=== PATIENT | female | born 1935 | race Caucasian/White ===

== ENCOUNTER 2018-10-11 14:50 | Inpatient (IN) | payer MEDICARE, BC ==
[2018-10-11] MEDS ORDERED: Acetaminophen/Codeine 30-300mg Tablet PO PRN (17:38)
[2018-10-11] MEDS ORDERED: Dextrose 50% Abboject 50 ML SYRINGE SLOW IVP PRN (17:42)
[2018-10-11] MEDS ORDERED: Dextrose 5% in Water 1,000 ML IV PRN (17:42)
[2018-10-11] MEDS: Cephalexin 250 MG CAP PO SCH (21:23)
[2018-10-11] MEDS: Atorvastatin Calcium 40 MG TAB PO SCH (21:23)
[2018-10-11] MEDS: Carvedilol 3.125 MG TAB PO SCH (21:23)
[2018-10-11] MEDS: HumaLOG 300 UNITS/3 ML VIAL SC PRN (21:26)
[2018-10-12 05:55] LABS: #Basophils 0.1 thou/uL (0.0-0.2); #Eosinphils 0.1 thou/uL (0.0-0.7); #Lymphocytes 1.4 thou/uL (1.20-3.40); #Monocytes 0.3 thou/uL (0.11-0.59); #Neutrophils 3.7 thou/uL (1.40-6.50); %Basophils 1.4 % (0.0-1.0); %Eosinophils 1.9 % (0.0-10.0); %Lymphocytes 25.1 % (21.0-51.0); %Monocytes 5.7 % (0.0-10.0); Hemoglobin 9.8 g/dL (12.0-16.0); Mean Corpuscular Hemoglobin 30.7 pg (27.0-31.0); Mean Corpuscular Volume 99.2 fL (78.0-98.0); Mean Platelet Volume 7.1 fL (7.4-10.4); Platelet Count 118 thou/uL (130-400); RBC Distribution Width 17.2 % (11.5-14.5); Red Blood Cell (RBC) Count 3.17 mill/uL (4.20-5.40); White Blood Cell (WBC) Count 5.7 thou/uL (4.8-10.8)
[2018-10-12 06:05] LABS: AST (SGOT) 27 U/L (5-34); Alkaline Phosphatase 160 U/L (40-150); Anion Gap 14 mmol/L (10-20); BUN (Urea Nitrogen) 34 mg/dL (9.8-20.1); Bilirubin, Total 0.6 mg/dL (0.2-1.2); Calc. Creatinine Clearance 34 mL/min (70-130); Calcium 8.6 mg/dL (7.8-10.44); Carbon Dioxide 28 mmol/L (23-31); Chloride 96 mmol/L (98-107); Estimated GFR-MDRD 36; Globulin 2.2 g/dL (2.4-3.5); Glucose 98 mg/dL (83-110); Potassium 3.8 mmol/L (3.5-5.1); Protein, Total 5.2 g/dL (6.0-8.3); Sodium 134 mmol/L (136-145)
[2018-10-12 07:43] LABS: ALT (SGPT) 13 U/L (8-55)
[2018-10-12] MEDS: Fish Oil 1,000 MG CAP PO SCH (09:08)
[2018-10-12] MEDS: Carvedilol 3.125 MG TAB PO SCH ×2 (09:08→21:01)
[2018-10-12] MEDS: Cephalexin 250 MG CAP PO SCH ×3 (09:08→21:01)
[2018-10-12] MEDS: Allopurinol 100 MG TAB PO SCH (09:08)
[2018-10-12] MEDS: Polyethylene Glycol 3350 17 GM Packet PO SCH (09:08)
[2018-10-12] MEDS: Enoxaparin Sodium 30 MG/0.3 ML SYRINGE SC SCH (09:09)
[2018-10-12] MEDS: Aspirin 81 mg Enteric Coated Tablet PO SCH (09:09)
[2018-10-12] MEDS: Furosemide 20 MG TAB PO SCH ×2 (09:09→14:47)
[2018-10-12] MEDS: glipiZIDE 5 MG TAB PO SCH ×2 (09:09→16:22)
--- NOTE | 2018-10-12 10:58 | PRG ---
DATE OF SERVICE: 10/12/2018 SUBJECTIVE: The patient feels well. No complaints. Rested well through the night. No dyspnea, chest pain or shortness of breath. OBJECTIVE: LUNGS: Clear. CARDIAC: Regular rhythm. She has a healing pacemaker site in the left upper chest. Cardiac examination shows regular rhythm with a healing biventricular pacemaker. ABDOMEN: Soft and nontender. SKIN/EXTREMITIES: Healing cellulitis of the right leg. LABORATORY DATA: White count 5700, hematocrit 31, hemoglobin 9.8. Sodium 134, potassium 3.8, chloride 96, bicarb 28, BUN 34, creatinine 1.38, albumin 3.0. ASSESSMENT: 1. Severe systolic heart failure, acute on chronic secondary to ischemic cardiomyopathy from recent myocardial infarction in June of 2018, status post angioplasty to the left anterior descending with subsequent ejection fraction of 10-15% on this admission and peripheral edema requiring IV diuresis and dopamine, which is now greatly improved. 2. Cellulitis of the right leg, improving greatly, on oral antibiotics. 3. Type 2 diabetes, controlled to goal. Type 2 diabetes with Accu-Cheks and glipizide. We will monitor and titrate and control. 4. History of atrial fibrillation with Watchman procedure. No need for anticoagulation, only rate control. PLAN: 1. Continue PT/OT. 2. Continue to monitor for any signs of arrhythmia. 3. Continue Accu-Cheks to monitor and titrate and control diabetes. 4. Continue stress ulcer and DVT prophylaxis. Job ID: [id number]
[2018-10-12] MEDS: HumaLOG 300 UNITS/3 ML VIAL SC PRN ×2 (12:06→16:22)
--- NOTE | 2018-10-12 13:03 | HP ---
Patient of Dr. Kim Rivero. HISTORY OF PRESENT ILLNESS: The patient is a very pleasant 82-year-old white female with a long history of atrial fibrillation, coronary artery disease, status post recent ST elevation NV and stent placement to the LAD in June of 2018 with subsequent severe ischemic cardiomyopathy with an ejection fraction of 10% to 15% and with left bundle-branch block and severe global hypokinesis, who has been followed by Dr. Eric Mendez and has been wearing a LifeVest since her myocardial infarction in preparation for possible biventricular AICD placement. She, however, presented to the [facility] Room on October 05 with complaints of increasing leg edema, weakness, and has developed some erythema of the right lower leg and was diagnosed with cellulitis. On admission, she had bilateral peripheral edema with erythema on the right calf. Cardiac examination showed a regular rhythm. There were few crackles in the bases. White count was elevated to 14,000. BUN was 41, creatinine was 2.19. She is felt to have acute on chronic systolic failure exacerbation, possibly from cellulitis of her right leg, severe deconditioning, and acute on chronic renal failure with creatinine increased to 2.1 from a previous creatinine of 1.4 as well as poor control of her type 2 diabetes. As mentioned above, she also has a history of atrial fibrillation with rate controlled, but no anticoagulation as she is status post a Watchman procedure after the recent myocardial infarction and stent. She has also had a history of GI bleeding with black tarry stools and a history of peptic ulcer disease, which was not treated except with proton pump inhibitors. She was started on low-dose dopamine and diuretics IV and slowly, but surely diuresed, decreasing edema. She was also started on clindamycin for her cellulitis and had markedly decreased erythema. She was seen by Dr. Rangel, nursing consultant, who stated that after she was optimized with fluid status, she would have a biventricular pacemaker placed. This was done on October 09 with no complications. She was weaned off her dopamine. The patient states she immediately began to feel better with increasing strength, no tightness in her chest, and has been walking in the halls with family with no shortness of breath. She is admitted here to [facility] to continue her PT and OT as she does live alone at home and is unable to maintain ADLs safely at this time. PAST MEDICAL HISTORY: Remarkable as mentioned above for chronic atrial fibrillation; coronary artery disease; status post myocardial infarction in 2010 and again in June of 2018; coronary angioplasty to the LAD in June of 2018; subsequent ischemic cardiomyopathy with an EF of 10% to 15% on this admission, but 20% to 25% after the NV; type 2 diabetes with adequate control until this admission; hyperlipidemia; hypertension; hypothyroidism; osteoarthritis; GI bleeding; gout. PAST SURGICAL HISTORY: Positive for esophagogastroduodenoscopy showing peptic ulcer disease, Watchman device placement, left groin embolectomy, angioplasty with stents to the LAD. SOCIAL HISTORY: She lives alone with her family living next door. She is a nonsmoker, nondrinker. She is a full code. FAMILY HISTORY: Positive for coronary artery disease in mother and CVA in father. ALLERGIES: SHE HAS NO ALLERGIES. MEDICATIONS: On admission to the skilled unit included allopurinol 300 daily, aspirin 81 daily, atorvastatin 40 daily, carvedilol 3.125 daily, Keflex 500 three times daily until October 17, Lovenox 30 mg subcu daily, furosemide 40 daily, glipizide 5 twice daily, MiraLAX 17 g daily. Apparently, was on a PPI at the other hospital, but has not been transferred here on that. REVIEW OF SYSTEMS: HEENT: She denies any headaches, dizziness, change in vision or hearing, hoarseness, or dysphagia. PULMONARY: She denies cough, sputum production, pneumonia, asthma, or tuberculosis. CARDIOVASCULAR: She denies chest pain, but does have chest tightness, greatly improved. She has noticed no palpitations. Markedly decreased edema. GASTROINTESTINAL: She has a history of GI bleed secondary to peptic ulcer disease and now is on prophylactic DVT with Lovenox and not on a PPI. GENITOURINARY: She denies dysuria, hematuria, or nocturia. MUSCULOSKELETAL: She denies stiffness or swelling in her joints or extremities, and resolving tenderness in her right groin. NEUROLOGIC: She denies localized numbness or weakness in arms or extremities. PHYSICAL EXAMINATION: GENERAL: The patient is an alert, oriented, lucid, pleasant white female, in no acute distress. Oriented x3 and cooperative. VITAL SIGNS: Show her to have blood pressure of 119/73, temperature is 97, pulse 86, respirations 18, O2 sats 100% on room air. HEENT: Pupils are equal, round, and reactive to light and accommodation. Sclerae are anicteric. Conjunctivae are pale. Oral mucous membranes are well hydrated. NECK: Supple. There are no nodes or masses. JVP is not elevated. LUNGS: Clear. CARDIAC: Shows regular rhythm with an S4. No other gallops or murmurs. Biventricular pacemaker site is healing well. ABDOMEN: Soft and nontender with no masses or organomegaly. SKIN/EXTREMITIES: Display no edema, clubbing, or cyanosis. There is a healing area of erythema and cellulitis on the right medial calf. NEUROLOGIC: Intact. LABORATORY DATA: Previously showed a white count of 7100, hematocrit 30, and hemoglobin 10. Sodium 131, potassium 3.8, chloride 94, bicarb 28, BUN 34, creatinine 1.58, glucose 160. ASSESSMENT: 1. Severe ischemic cardiomyopathy, status post ST myocardial infarction and stent to the left anterior descending in June of 2018 with subsequent ejection fraction down to 10% to 15% on this admission, now improved, status post biventricular defibrillator placement and IV diuresis. 2. History of cellulitis of the right leg, improving, on oral Keflex for several more days until October 17. 3. History of peptic ulcer disease and GI bleed with stable hemoglobin, on prophylactic heparin, but we will start on PPI. 4. History of atrial fibrillation with rate controlled, but no need for anticoagulation as the patient has had a Watchman procedure. 5. Chronic kidney disease, stage 3, stable. 6. Acute on chronic kidney injury, resolved. 7. Diabetes type 2, controlled to goal. 8. History of nonsustained ventricular tachycardia, no recurrence. 9. Hyponatremia. PLAN: 1. Consult PT/OT. 2. Continue DVT prophylaxis and start on stress ulcer prophylaxis and monitor hemoglobin closely. 3. Continue Accu-Cheks to monitor and titrate and control diabetes. 4. Continue to monitor fluid status. Job ID: [id number]
[2018-10-12] MEDS: Atorvastatin Calcium 40 MG TAB PO SCH (21:01)
[2018-10-13] MEDS: HumaLOG 300 UNITS/3 ML VIAL SC PRN ×3 (05:42→17:28)
[2018-10-13] MEDS: Polyethylene Glycol 3350 17 GM Packet PO SCH (08:38)
[2018-10-13] MEDS: Enoxaparin Sodium 30 MG/0.3 ML SYRINGE SC SCH (08:39)
[2018-10-13] MEDS: Cephalexin 250 MG CAP PO SCH ×3 (08:40→20:52)
[2018-10-13] MEDS: Allopurinol 100 MG TAB PO SCH (08:40)
[2018-10-13] MEDS: glipiZIDE 5 MG TAB PO SCH ×2 (08:40→17:07)
[2018-10-13] MEDS: Carvedilol 3.125 MG TAB PO SCH ×2 (08:40→20:52)
[2018-10-13] MEDS: Aspirin 81 mg Enteric Coated Tablet PO SCH (08:41)
[2018-10-13] MEDS: Fish Oil 1,000 MG CAP PO SCH (08:41)
[2018-10-13] MEDS: Furosemide 20 MG TAB PO SCH ×2 (08:41→15:09)
--- NOTE | 2018-10-13 17:49 | PRG ---
DATE OF SERVICE: 10/13/2018 SUBJECTIVE: The patient is sitting up in the [place], visiting with a friend. States she feels much better with increasing strength. No chest pain or shortness of breath. She, however, has not had physical therapy as of yet. She is not having any dark stools. She is not having any significant edema. Had resolving cellulitis. Her biventricular pacemaker in place and she states that it has made an immediate difference in her energy. OBJECTIVE: VITAL SIGNS: Show blood pressure is 100/69, temperature 97, pulse 84, respirations 18, O2 saturations 97% on room air. Accu-Cheks range 128 to 253. LUNGS: Clear. CARDIAC: Showed regular rhythm. Pacemaker site is healing well. SKIN/EXTREMITIES: Show 1+ edema. ASSESSMENT: 1. Resolving decompensation of systolic heart failure, status post biventricular pacemaker and defibrillator. 2. Resolving cellulitis of right leg. 3. Type 2 diabetes with fair control. 4. Atrial fibrillation with Watchman procedure. PLAN: Start PT/OT tomorrow. Continue to monitor for signs of arrhythmia. Continue Accu-Cheks to monitor and titrate and control diabetes. Continue stress ulcer and DVT prophylaxis. Job ID: [id number]
[2018-10-13] MEDS: Atorvastatin Calcium 40 MG TAB PO SCH (20:52)
[2018-10-14] MEDS: HumaLOG 300 UNITS/3 ML VIAL SC PRN ×3 (05:37→16:55)
[2018-10-14] MEDS: Cephalexin 250 MG CAP PO SCH ×3 (09:16→20:09)
[2018-10-14] MEDS: Aspirin 81 mg Enteric Coated Tablet PO SCH (09:16)
[2018-10-14] MEDS: Furosemide 20 MG TAB PO SCH ×2 (09:17→15:11)
[2018-10-14] MEDS: Carvedilol 3.125 MG TAB PO SCH ×2 (09:17→20:09)
[2018-10-14] MEDS: glipiZIDE 5 MG TAB PO SCH ×2 (09:17→16:55)
[2018-10-14] MEDS: Allopurinol 100 MG TAB PO SCH (09:17)
[2018-10-14] MEDS: Fish Oil 1,000 MG CAP PO SCH (09:17)
[2018-10-14] MEDS: Enoxaparin Sodium 30 MG/0.3 ML SYRINGE SC SCH (09:17)
[2018-10-14] MEDS: Polyethylene Glycol 3350 17 GM Packet PO SCH (09:18)
--- NOTE | 2018-10-14 14:04 | PRG ---
DATE OF SERVICE: 10/14/2018 SUBJECTIVE: Ms. Amor is doing well. Denies any complaints. Resting comfortably, tolerating her therapy. She denies any pain. No family at bedside. OBJECTIVE: VITAL SIGNS: She is afebrile. Heart rate 80, respirations 18, oxygen saturation 98% on room air, blood pressure 133/74. CARDIOVASCULAR SYSTEM: S1 and S2 plus. RESPIRATORY SYSTEM: Normal vesicular breath sounds heard in all lung garcia. ABDOMEN: Soft and nontender. Bowel sounds heard in all quadrants. EXTREMITIES: Without cyanosis or clubbing. Right lobo wound with dressing. No edema. Peripheral pulses are palpable. CENTRAL NERVOUS SYSTEM: Awake and responsive. Generalized weakness. LABORATORY DATA: Laboratory values done on the shows a white count of 5.7, H and H are 9.8 and 31.5. Blood sugars are 201, 159, 257, 186, and 249. Sodium 134, potassium 3.8, BUN and creatinine are 34 and 1.38. IMPRESSION: 1. Severe cardiomyopathy with ejection fraction of 10% to 15%, requiring automatic implantable cardioverter-defibrillator placement. 2. Coronary artery disease. 3. Atrial fibrillation. 4. Diabetes mellitus, type 2. 5. Hypertension. 6. Dyslipidemia. 7. Hypothyroidism. 8. Osteoarthritis. 9. History of gout. PLAN: 1. Continue 1800-calorie heart healthy ADA diet. 2. Continue current medications. 3. Accu-Cheks with sliding scale coverage. 4. DVT prophylaxis, she is on Lovenox. 5. Decubitus precautions. 6. Stress ulcer prophylaxis. 7. Wound care. 8. Physical therapy. 9. Routine laboratory values. 10. Discussed with the patient in detail. All questions answered. Job ID: [id number]
[2018-10-14] MEDS: Atorvastatin Calcium 20 MG TAB PO SCH (20:09)
[2018-10-15] MEDS: HumaLOG 300 UNITS/3 ML VIAL SC PRN ×2 (06:05→12:56)
[2018-10-15] MEDS: glipiZIDE 5 MG TAB PO SCH ×2 (07:16→15:55)
[2018-10-15] MEDS: Allopurinol 100 MG TAB PO SCH (08:52)
[2018-10-15] MEDS: Enoxaparin Sodium 30 MG/0.3 ML SYRINGE SC SCH (08:52)
[2018-10-15] MEDS: Furosemide 20 MG TAB PO SCH ×2 (08:52→12:57)
[2018-10-15] MEDS: Cephalexin 250 MG CAP PO SCH ×3 (08:52→20:46)
[2018-10-15] MEDS: Aspirin 81 mg Enteric Coated Tablet PO SCH (08:52)
[2018-10-15] MEDS: Carvedilol 3.125 MG TAB PO SCH ×2 (08:52→20:46)
[2018-10-15] MEDS: Fish Oil 1,000 MG CAP PO SCH (08:52)
[2018-10-15] MEDS: Polyethylene Glycol 3350 17 GM Packet PO SCH (08:53)
--- NOTE | 2018-10-15 14:07 | PRG ---
DATE OF SERVICE: 10/15/2018 SUBJECTIVE: Ms. Amor is doing great. Denies any complaints. She is sitting in the hallway with her daughter. She apparently did well with therapy this morning. OBJECTIVE: VITAL SIGNS: She is afebrile, heart rate 98, respirations 22, oxygen saturation 99% on room air, and blood pressure 118/66. CARDIOVASCULAR SYSTEM: S1 and S2 plus. RESPIRATORY SYSTEM: Normal vesicular breath sounds. ABDOMEN: Soft, nontender. Bowel sounds heard in all quadrants. EXTREMITIES: Without cyanosis or clubbing. Right leg trace edema. CENTRAL NERVOUS SYSTEM: Awake and responsive. Generalized weakness. IMPRESSION: 1. Coronary artery disease. 2. Chronic systolic congestive heart failure. 3. Atrial fibrillation. 4. Hypertension. 5. Dyslipidemia. 6. Hypothyroidism. 7. Osteoarthritis. 8. Recent automatic implantable cardioverter-defibrillator placement. PLAN: 1. Continue current medications. 2. Heart healthy diet. 3. Incision care. 4. DVT prophylaxis. 5. Physical therapy. 6. Routine laboratory values. 7. Discussed with the patient and nursing in detail. All questions answered. Job ID: [id number]
[2018-10-15] MEDS: Atorvastatin Calcium 20 MG TAB PO SCH (20:46)
[2018-10-16] MEDS: HumaLOG 300 UNITS/3 ML VIAL SC PRN ×3 (05:20→17:25)
[2018-10-16] MEDS: Aspirin 81 mg Enteric Coated Tablet PO SCH (08:14)
[2018-10-16] MEDS: glipiZIDE 5 MG TAB PO SCH ×2 (08:14→17:25)
[2018-10-16] MEDS: Allopurinol 100 MG TAB PO SCH (08:14)
[2018-10-16] MEDS: Carvedilol 3.125 MG TAB PO SCH ×2 (08:15→20:12)
[2018-10-16] MEDS: Furosemide 20 MG TAB PO SCH ×2 (08:15→14:57)
[2018-10-16] MEDS: Fish Oil 1,000 MG CAP PO SCH (08:15)
[2018-10-16] MEDS: Enoxaparin Sodium 30 MG/0.3 ML SYRINGE SC SCH (08:15)
[2018-10-16] MEDS: Cephalexin 250 MG CAP PO SCH ×3 (08:15→20:13)
[2018-10-16] MEDS: Polyethylene Glycol 3350 17 GM Packet PO SCH (08:16)
--- NOTE | 2018-10-16 12:53 | PRG ---
DATE OF SERVICE: 10/16/2018 SUBJECTIVE: Ms. Amor has been moved to [facility]. She had a great lunch. She denies any concerns or questions. She feels like she is getting stronger. No family at bedside. Discussed with nursing. OBJECTIVE: VITAL SIGNS: She is afebrile. Heart rate 94, respirations 18, oxygen saturation 98% on room air, and blood pressure is 111/53. CARDIOVASCULAR SYSTEM: S1 and S2 plus. RESPIRATORY SYSTEM: Normal vesicular breath sounds. ABDOMEN: Soft and nontender. Bowel sounds heard in all quadrants. EXTREMITIES: Without cyanosis or clubbing. CHEST: AICD site is healthy. CENTRAL NERVOUS SYSTEM: Awake and responsive. Generalized weakness. LABORATORY DATA: Blood sugars are 149, 267, 153, and 164. IMPRESSION: 1. Significant cardiomyopathy requiring AICD placement. 2. Diabetes mellitus type 2. 3. Dyslipidemia. 4. Resolving cellulitis. 5. Coronary artery disease. 6. Hypertension. 7. Hypothyroidism. PLAN: 1. Continue current medications. 2. Keflex for total of 10 days. 3. Incision care. 4. DVT prophylaxis. She is on Lovenox. 5. Decubitus precautions. 6. Stress ulcer prophylaxis. 7. Physical Therapy. 8. Routine laboratory values. Job ID: [id number]
[2018-10-16] MEDS ORDERED: Cephalexin 500 MG CAP PO SCH (15:00)
[2018-10-16] MEDS: Atorvastatin Calcium 20 MG TAB PO SCH (20:12)
[2018-10-17 05:40] LABS: #Basophils 0.1 thou/uL (0.0-0.2); #Eosinphils 0.1 thou/uL (0.0-0.7); #Lymphocytes 1.9 thou/uL (1.20-3.40); #Monocytes 0.5 thou/uL (0.11-0.59); %Basophils 0.9 % (0.0-1.0); %Eosinophils 1.1 % (0.0-10.0); %Lymphocytes 25.5 % (21.0-51.0); %Monocytes 6.5 % (0.0-10.0); %Neutrophils 66.1 % (42.0-75.0); Hemoglobin 9.4 g/dL (12.0-16.0); Mean Corpuscular HGB CONC 30.8 g/dL (32.0-36.0); Mean Corpuscular Hemoglobin 30.6 pg (27.0-31.0); Mean Corpuscular Volume 99.3 fL (78.0-98.0); Mean Platelet Volume 7.5 fL (7.4-10.4); Platelet Count 159 thou/uL (130-400); Red Blood Cell (RBC) Count 3.06 mill/uL (4.20-5.40); White Blood Cell (WBC) Count 7.6 thou/uL (4.8-10.8)
[2018-10-17 05:58] LABS: Anion Gap 15 mmol/L (10-20); BUN (Urea Nitrogen) 41 mg/dL (9.8-20.1); Calc. Creatinine Clearance 32 mL/min (70-130); Calcium 8.9 mg/dL (7.8-10.44); Carbon Dioxide 27 mmol/L (23-31); Chloride 97 mmol/L (98-107); Estimated GFR-MDRD 34; Glucose 153 mg/dL (83-110); Potassium 3.5 mmol/L (3.5-5.1); Sodium 135 mmol/L (136-145)
[2018-10-17] MEDS: HumaLOG 300 UNITS/3 ML VIAL SC PRN ×2 (06:51→11:43)
[2018-10-17] MEDS: glipiZIDE 5 MG TAB PO SCH ×2 (08:11→16:11)
[2018-10-17] MEDS: Aspirin 81 mg Enteric Coated Tablet PO SCH (08:11)
[2018-10-17] MEDS: Allopurinol 100 MG TAB PO SCH (08:11)
[2018-10-17] MEDS: Fish Oil 1,000 MG CAP PO SCH (08:12)
[2018-10-17] MEDS: Furosemide 20 MG TAB PO SCH ×2 (08:12→14:36)
[2018-10-17] MEDS: Cephalexin 250 MG CAP PO SCH ×3 (08:12→20:32)
[2018-10-17] MEDS: Enoxaparin Sodium 30 MG/0.3 ML SYRINGE SC SCH (08:12)
[2018-10-17] MEDS: Carvedilol 3.125 MG TAB PO SCH ×2 (08:12→20:32)
[2018-10-17] MEDS: Polyethylene Glycol 3350 17 GM Packet PO SCH (08:13)
--- NOTE | 2018-10-17 13:18 | PRG ---
DATE OF SERVICE: 10/17/2018 SUBJECTIVE: Ms. Amor is up in her chair and denies any complaints. She is happy with her progress. She states that her goal is to get out of here in 2 weeks and get independent by then. No family at bedside. OBJECTIVE: VITAL SIGNS: She is afebrile, heart rate 76, respirations 18, oxygen saturation 95% on room air, blood pressure 102/64. CARDIOVASCULAR SYSTEM: S1 and S2 plus. RESPIRATORY SYSTEM: Normal vesicular breath sounds. ABDOMEN: Soft and nontender. Bowel sounds heard in all quadrants. EXTREMITIES: Without cyanosis or clubbing. CENTRAL NERVOUS SYSTEM: Awake and responsive. Generalized weakness. LABORATORY DATA: White count is 7.6, H and H are 9.4 and 30.4. Sodium 135, potassium 3.5, BUN and creatinine of 41 and 1.47. Blood sugars are 164, 173, 157, 153, and 250. IMPRESSION: 1. Ischemic cardiomyopathy, requiring AICD placement. 2. Diabetes mellitus, type 2. 3. Dyslipidemia. 4. Resolving cellulitis. 5. Coronary artery disease. 6. Hypertension. 7. Hypothyroidism. 8. Renal insufficiency. PLAN: 1. Continue current medications. 2. Nutritional support with 1800-calorie heart healthy ADA diet. 3. Accu-Cheks with sliding scale coverage. 4. Monitor heart rate and rhythm. 5. Monitor blood pressure and adjust medications as needed. 6. DVT prophylaxis, she is on Lovenox. 7. Physical therapy. 8. Dr. Azul covering this weekend. Job ID: [id number]
[2018-10-17] MEDS: Atorvastatin Calcium 20 MG TAB PO SCH (20:32)
[2018-10-18] MEDS: HumaLOG 300 UNITS/3 ML VIAL SC PRN ×4 (05:14→20:47)
[2018-10-18] MEDS: Polyethylene Glycol 3350 17 GM Packet PO SCH (08:05)
[2018-10-18] MEDS: Fish Oil 1,000 MG CAP PO SCH (08:06)
[2018-10-18] MEDS: Carvedilol 3.125 MG TAB PO SCH ×2 (08:06→20:24)
[2018-10-18] MEDS: Enoxaparin Sodium 30 MG/0.3 ML SYRINGE SC SCH (08:06)
[2018-10-18] MEDS: Furosemide 20 MG TAB PO SCH ×2 (08:06→14:13)
[2018-10-18] MEDS: glipiZIDE 5 MG TAB PO SCH ×2 (08:06→16:31)
[2018-10-18] MEDS: Allopurinol 100 MG TAB PO SCH (08:06)
[2018-10-18] MEDS: Aspirin 81 mg Enteric Coated Tablet PO SCH (08:06)
--- NOTE | 2018-10-18 13:30 | PRG ---
DATE OF SERVICE: 10/18/2018 Ms. Amor is a very pleasant 82-year-old white female followed by Dr. Eric Mendez, who had a long history of atrial fibrillation; coronary artery disease, status post STEMI and stent placement to [facility] back in June. She had a very severe ischemic cardiomyopathy with ejection fraction of 10% to 15%, left bundle-branch block, and severe global hypokinesis. She wore LifeVest and eventually had an AICD placed. Postop, she was transferred to inpatient rehab at [facility] for physical therapy and occupational therapy. Unfortunately, during that time, she also had a GI bleed and had to be started on low-dose dopamine, diuretics, etc. She was stabilized and now she is here for continued PT and OT. She does live alone and is unable to maintain her ADLs safely, but she is working towards that goal. SUBJECTIVE: The patient states she is doing well and feels like she is improving. She has no concerns or complaints today and wants to continue to get stronger, so she can go home and become independent. PHYSICAL EXAMINATION: VITAL SIGNS: Blood pressure this morning 125/63, pulse 87, respirations 16, O2 saturation 96% to 98% on room air, T-max 97.6. GENERAL: This is a well-developed, well-nourished, 82-year-old white female, in no apparent distress at this time. HEENT: Normocephalic, nontraumatic cranium. The pupils are equally round and reactive. Extraocular movements are intact. Nose and throat are slightly dry. NECK: Supple without masses, nodes, or bruits. CHEST: Clear to auscultation. No rales, no rhonchi, no wheezes are heard. HEART: Regular rate and rhythm without murmurs, gallops, or rubs. ABDOMEN: Soft, nontender without organomegaly. Normal bowel sounds are heard in all 4 quadrants. : Deferred. EXTREMITIES: No clubbing or cyanosis. The patient is oriented to person, place, and time. IMPRESSION: 1. Ischemic cardiomyopathy requiring AICD placement, which has been done. 2. Diabetes type 2. 3. Hyperlipidemia. 4. Cellulitis, which is resolved. 5. Coronary artery disease. 6. Hypertension. 7. Hypothyroidism. 8. Renal insufficiency. 9. Generalized weakness. PLAN: 1. The patient states she would like to be out within the next week. She is working hard towards working with therapy and getting as strong as she can. 2. Continue Accu-Cheks with a.c. and at bedtime. 3. Continue to monitor the patient's heart rate. 4. Monitor the patient's blood pressure and adjust medications as needed. 5. Stress ulcer prophylaxis. 6. Decubitus precautions. 7. DVT prophylaxis with Lovenox. 8. Continue physical therapy and occupational therapy. Job ID: [id number]
[2018-10-18] MEDS: Atorvastatin Calcium 20 MG TAB PO SCH (20:24)
[2018-10-19] MEDS: Enoxaparin Sodium 30 MG/0.3 ML SYRINGE SC SCH (08:03)
[2018-10-19] MEDS: Furosemide 20 MG TAB PO SCH ×2 (08:04→14:33)
[2018-10-19] MEDS: glipiZIDE 5 MG TAB PO SCH ×2 (08:04→16:36)
[2018-10-19] MEDS: Fish Oil 1,000 MG CAP PO SCH (08:04)
[2018-10-19] MEDS: Aspirin 81 mg Enteric Coated Tablet PO SCH (08:04)
[2018-10-19] MEDS: Carvedilol 3.125 MG TAB PO SCH ×2 (08:04→20:24)
[2018-10-19] MEDS: Allopurinol 100 MG TAB PO SCH (08:04)
[2018-10-19] MEDS: Polyethylene Glycol 3350 17 GM Packet PO SCH (08:06)
--- NOTE | 2018-10-19 08:31 | PRG ---
DATE OF SERVICE: 10/19/2018 The patient is a very pleasant 82-year-old white female followed by Dr. Mendez, with long history of atrial fibrillation, CAD status post STEMI, stent placement to the LAD back in June. She had severe ischemic cardiomyopathy with ejection fraction of 10% to 15%, left bundle branch block and severe global hypokinesis. She wore LifeVest and eventually had an AICD placed. Postop, she was very weak and therefore transferred to [facility] for PT and OT. Unfortunately, she has had a GI bleed and started on low-dose dopamine and diuretics. Eventually, she was stabilized and transferred back to [facility] for PT and OT. She lives alone, is unable to maintain her ADLs and so she was working toward that goal. SUBJECTIVE: The patient states she did well yesterday and has no complaints. She thinks she is slowly improving. OBJECTIVE: VITAL SIGNS: Reveal blood pressure 99/63, pulse 84, respirations 20, O2 saturation 99% to 98% on room air, T-max 97.8. GENERAL: This is a well-developed, well-nourished, pleasant white female, in no apparent distress at this time. HEENT: Reveals normocephalic and nontraumatic cranium. Pupils are equal, round, and reactive. Extraocular movements are intact. Nose and throat are slightly dry. NECK: Supple without masses, nodes, or bruits. CHEST: Clear to auscultation. No rales, rhonchi, or wheezes are heard. HEART: Reveals a regular rate and rhythm with S4. No murmurs, gallops, or rubs are noted. Pacemaker is in place. ABDOMEN: Soft, nontender without organomegaly. Normal bowel sounds are noted. No rebound or guarding is noted. : Exam is deferred. EXTREMITIES: Reveal no clubbing, cyanosis, or edema. NEUROLOGIC: The patient is oriented to person, place, and time. IMPRESSION: 1. Ischemic cardiomyopathy with automated implantable cardioverter defibrillator. 2. Diabetes, type 2. 3. Hyperlipidemia. 4. Coronary artery disease. 5. Hypertension. 6. Hypothyroidism. 7. Renal insufficiency. 8. Resolved cellulitis. 9. Generalized weakness. PLAN: 1. Continue to encourage the patient to work hard at physical therapy, so she can get out and go back home. 2. Continue Accu-Cheks before meals and at bedtime. 3. Monitor the patient's heart rate. 4. Continue to monitor the patient's blood pressure, adjust medications as needed. 5. Stress ulcer prophylaxis. 6. Decubitus precautions. 7. DVT prophylaxis with Lovenox. 8. Continue PT and OT. Job ID: [id number]
[2018-10-19] MEDS: HumaLOG 300 UNITS/3 ML VIAL SC PRN ×2 (12:14→16:36)
[2018-10-19] MEDS: Atorvastatin Calcium 20 MG TAB PO SCH (20:23)
[2018-10-20] MEDS: HumaLOG 300 UNITS/3 ML VIAL SC PRN ×3 (05:15→20:04)
[2018-10-20] MEDS ORDERED: Dextrose 50% Abboject 50 ML SYRINGE SLOW IVP PRN (06:16)
[2018-10-20] MEDS ORDERED: Dextrose 5% in Water 1,000 ML IV PRN (06:16)
[2018-10-20] MEDS: Carvedilol 3.125 MG TAB PO SCH ×2 (08:20→20:06)
[2018-10-20] MEDS: Allopurinol 100 MG TAB PO SCH (08:20)
[2018-10-20] MEDS: Aspirin 81 mg Enteric Coated Tablet PO SCH (08:20)
[2018-10-20] MEDS: Furosemide 20 MG TAB PO SCH ×2 (08:20→14:18)
[2018-10-20] MEDS: glipiZIDE 5 MG TAB PO SCH ×2 (08:20→16:40)
[2018-10-20] MEDS: Enoxaparin Sodium 30 MG/0.3 ML SYRINGE SC SCH (08:20)
[2018-10-20] MEDS: Fish Oil 1,000 MG CAP PO SCH (08:20)
[2018-10-20] MEDS: Polyethylene Glycol 3350 17 GM Packet PO SCH (08:21)
--- NOTE | 2018-10-20 10:14 | PRG ---
DATE OF SERVICE: 10/20/2018 Ms. Amor is a very pleasant 82-year-old white female. She is followed by Dr. Mendez for multiple cardiac problems including a long history of atrial fibrillation, CAD status post STEMI, stent placement to the LAD back in June. She had severe ischemic cardiomyopathy with ejection fraction of 10% to 15%, left bundle branch block, and severe global hypokinesis. She wore a LifeVest for a while, and eventually had an AICD placed. Postoperatively, she was very weak, and therefore, she was transferred to [facility] for continued physical therapy and occupational therapy. The patient lives alone, is unable to maintain her own ADLs, so she was transferred here to work towards that goal. SUBJECTIVE: The patient states she had a great day yesterday. She is awake and very happy and states she is doing well today. She has no complaints today. OBJECTIVE: VITAL SIGNS: Reveal blood pressure 103/68, pulse 77 to 89, respirations 18 to 19, O2 saturation 98% to 100% on room air, T-max 97.5. GENERAL: The is a well-developed, well-nourished, very pleasant, white female, in no apparent distress at this time. HEENT: Reveal normocephalic and nontraumatic cranium. Pupils are equally round and reactive. Extraocular movements are intact. Nose and throat are moist this morning. NECK: Supple without masses, nodes, or bruits. CHEST: Clear to auscultation. No rales, rhonchi, or wheezes are heard. HEART: Reveals a regular rate and rhythm without murmurs, gallops, or rubs. Pacemaker in place. ABDOMEN: Soft, nontender without organomegaly. Normal bowel sounds are heard in all 4 quadrants. No rebound or guarding is noted. : Deferred. EXTREMITIES: Reveal no clubbing, cyanosis, or edema. The patient is oriented to person, place, and time x3. IMPRESSION: 1. Ischemic cardiomyopathy with automatic implantable cardioverter-defibrillator. 2. Diabetes, type 2. 3. Hyperlipidemia. 4. Coronary artery disease. 5. Hypertension. 6. Hypothyroidism. 7. Renal insufficiency. 8. Resolved cellulitis. 9. Generalized weakness. PLAN: 1. Continue physical therapy starting again tomorrow when they are back in the hospital. 2. Continue Accu-Cheks before meals and at bedtime. 3. Continue to monitor the patient's heart rate for RVR. 4. Monitor the patient's blood pressure and adjust medications as needed. 5. Decubitus precautions. 6. Stress ulcer prophylaxis. 7. DVT prophylaxis with Lovenox. 8. Continue PT and OT. Job ID: [id number]
[2018-10-20] MEDS: Atorvastatin Calcium 20 MG TAB PO SCH (20:05)
[2018-10-21] MEDS: Allopurinol 100 MG TAB PO SCH ×2 (08:17→10:54)
[2018-10-21] MEDS: Carvedilol 3.125 MG TAB PO SCH ×2 (08:17→20:30)
[2018-10-21] MEDS: Aspirin 81 mg Enteric Coated Tablet PO SCH (08:17)
[2018-10-21] MEDS: glipiZIDE 5 MG TAB PO SCH ×2 (08:17→16:56)
[2018-10-21] MEDS: Enoxaparin Sodium 30 MG/0.3 ML SYRINGE SC SCH (08:17)
[2018-10-21] MEDS: Fish Oil 1,000 MG CAP PO SCH (08:18)
[2018-10-21] MEDS: Furosemide 20 MG TAB PO SCH ×2 (08:18→13:43)
[2018-10-21] MEDS: Polyethylene Glycol 3350 17 GM Packet PO SCH (08:19)
[2018-10-21] MEDS: HumaLOG 300 UNITS/3 ML VIAL SC PRN ×3 (12:06→20:33)
--- NOTE | 2018-10-21 14:55 | PRG ---
DATE OF SERVICE: 10/21/2018 SUBJECTIVE: Ms. Amor is doing well, denies any complaints up in her chair, eating lunch. She apparently has a case conference today. She is hoping she is cleared to go home soon. She apparently was able to go to the bathroom on her own. OBJECTIVE: VITAL SIGNS: She is afebrile, heart rate 89, respirations 18, oxygen saturation 97% on room air, and blood pressure 121/75. CARDIOVASCULAR SYSTEM: S1 and S2 plus. RESPIRATORY SYSTEMS: Normal vesicular breath sounds. ABDOMEN: Soft and nontender. Bowel sounds heard in all quadrants. EXTREMITIES: Without cyanosis or clubbing. Peripheral pulses are palpable. CENTRAL NERVOUS SYSTEM: Grossly nonfocal. She is awake and responsive. IMPRESSION: 1. AICD placement for ischemic cardiomyopathy. 2. Diabetes mellitus type 2, well controlled. 3. Dyslipidemia. 4. Coronary artery disease. 5. Hypertension. 6. Hypothyroidism. LABORATORY DATA: Her blood sugars are 109, 200, 146, and 256. BUN and creatinine on 10/17 are 41 and 1.47. PLAN: 1. Continue current medications. 2. 1800-calorie heart healthy ADA diet. 3. Accu-Cheks with sliding scale coverage. 4. DVT prophylaxis. 5. Decubitus precautions. 6. Stress ulcer prophylaxis. 7. Physical Therapy. 8. Discharge planning. Job ID: [id number]
[2018-10-21] MEDS: Atorvastatin Calcium 20 MG TAB PO SCH (20:30)
[2018-10-22] MEDS: Carvedilol 3.125 MG TAB PO SCH ×2 (08:28→20:49)
[2018-10-22] MEDS: glipiZIDE 5 MG TAB PO SCH ×2 (08:28→17:01)
[2018-10-22] MEDS: Aspirin 81 mg Enteric Coated Tablet PO SCH (08:28)
[2018-10-22] MEDS: Furosemide 20 MG TAB PO SCH ×2 (08:29→14:13)
[2018-10-22] MEDS: Fish Oil 1,000 MG CAP PO SCH (08:29)
[2018-10-22] MEDS: Polyethylene Glycol 3350 17 GM Packet PO SCH (08:29)
[2018-10-22] MEDS: Enoxaparin Sodium 30 MG/0.3 ML SYRINGE SC SCH (08:29)
[2018-10-22] MEDS: Allopurinol 100 MG TAB PO SCH (08:30)
[2018-10-22] MEDS: HumaLOG 300 UNITS/3 ML VIAL SC PRN ×2 (11:57→20:47)
--- NOTE | 2018-10-22 13:55 | PRG ---
DATE OF SERVICE: 10/22/2018 SUBJECTIVE: Ms. Amor is doing well. Denies any complaints. Therapy feels that she should stay here at least another week to continue to get stronger. The patient is agreeable. OBJECTIVE: VITAL SIGNS: She is afebrile, heart rate 60, respirations 16, oxygen saturation 99% on room air, and blood pressure 106/67. CARDIOVASCULAR SYSTEM: S1 and S2 plus. RESPIRATORY SYSTEM: Normal vesicular breath sounds. ABDOMEN: Soft and nontender. Bowel sounds heard in all quadrants. EXTREMITIES: Without cyanosis or clubbing. Peripheral pulses are palpable. CENTRAL NERVOUS SYSTEM: Awake and responsive. Generalized weakness. Grossly nonfocal. LABORATORY DATA: Blood sugars are 154, 205, 124, and 225. IMPRESSION: 1. Ischemic cardiomyopathy requiring automatic implantable cardioverter defibrillator placement. 2. Chronic systolic congestive heart failure, well controlled. 3. Diabetes mellitus, type 2. 4. Hypertension. 5. Dyslipidemia. 6. Coronary artery disease. 7. Hypothyroidism. 8. Improving deconditioning. PLAN: 1. Continue current medications. 2. Nutritional support. 3. DVT and stress ulcer prophylaxis. 4. Decubitus precautions. 5. Accu-Cheks with sliding scale coverage. 6. Physical therapy. 7. Discussed with the patient in detail. All questions answered. Job ID: [id number]
[2018-10-22] MEDS: Atorvastatin Calcium 20 MG TAB PO SCH (20:48)
[2018-10-23] MEDS: Acetaminophen 325 MG TAB PO PRN (00:13)
[2018-10-23] MEDS: Carvedilol 3.125 MG TAB PO SCH ×2 (08:25→20:17)
[2018-10-23] MEDS: Allopurinol 100 MG TAB PO SCH (08:25)
[2018-10-23] MEDS: Fish Oil 1,000 MG CAP PO SCH (08:25)
[2018-10-23] MEDS: glipiZIDE 5 MG TAB PO SCH ×2 (08:25→17:03)
[2018-10-23] MEDS: Aspirin 81 mg Enteric Coated Tablet PO SCH (08:25)
[2018-10-23] MEDS: Furosemide 40 MG TAB PO SCH ×2 (08:26→14:53)
[2018-10-23] MEDS: Polyethylene Glycol 3350 17 GM Packet PO SCH (08:26)
[2018-10-23] MEDS: Enoxaparin Sodium 30 MG/0.3 ML SYRINGE SC SCH (08:26)
[2018-10-23] MEDS: HumaLOG 300 UNITS/3 ML VIAL SC PRN ×3 (12:29→20:18)
--- NOTE | 2018-10-23 13:15 | PRG ---
DATE OF SERVICE: 10/23/2018 SUBJECTIVE: Ms. Amor is doing the same. Denies any complaints. Up in chair eating lunch. No family at bedside. OBJECTIVE: VITAL SIGNS: She is afebrile, heart rate 70, respirations 19, oxygen saturation 100% on room air, blood pressure 107/64. CARDIOVASCULAR: S1 and S2 plus. RESPIRATORY: Normal vesicular breath sounds. ABDOMEN: Soft and nontender. Bowel sounds heard in all quadrants. EXTREMITIES: Without cyanosis or clubbing. CENTRAL NERVOUS SYSTEM: Awake and responsive. Generalized weakness. IMPRESSION: 1. Ischemic cardiomyopathy, requiring automatic implantable cardioverter-defibrillator placement. 2. Chronic systolic congestive heart failure. 3. Diabetes mellitus, type 2. 4. Hypertension. 5. Dyslipidemia. 6. Hypothyroidism. 7. Improving deconditioning. PLAN: 1. Continue current medications. 2. 1800-calorie heart-healthy ADA diet. 3. Accu-Cheks with sliding scale coverage. 4. Monitor blood pressure and adjust medications as needed. 5. Monitor for any decomposition of heart failure. 6. Physical therapy. 7. DVT prophylaxis - the patient is on Lovenox. 8. Routine laboratory values. Job ID: [id number]
[2018-10-23] MEDS: Atorvastatin Calcium 20 MG TAB PO SCH (20:17)
[2018-10-24] MEDS: Enoxaparin Sodium 30 MG/0.3 ML SYRINGE SC SCH (08:12)
[2018-10-24] MEDS: Furosemide 40 MG TAB PO SCH ×2 (08:12→14:15)
[2018-10-24] MEDS: Allopurinol 100 MG TAB PO SCH (08:12)
[2018-10-24] MEDS: glipiZIDE 5 MG TAB PO SCH ×2 (08:13→16:41)
[2018-10-24] MEDS: Aspirin 81 mg Enteric Coated Tablet PO SCH (08:13)
[2018-10-24] MEDS: Carvedilol 3.125 MG TAB PO SCH ×2 (08:13→20:10)
[2018-10-24] MEDS: Fish Oil 1,000 MG CAP PO SCH (08:13)
[2018-10-24] MEDS: Polyethylene Glycol 3350 17 GM Packet PO SCH (09:03)
[2018-10-24] MEDS ORDERED: Loperamide HCl 2 MG CAP PO PRN (13:31)
--- NOTE | 2018-10-24 13:41 | PRG ---
DATE OF SERVICE: 10/24/2018 SUBJECTIVE: Ms. Amor is doing the same. She is having some formed stools, but very frequent, and is interfering with her therapy. We will try Imodium 1 tablet b.i.d. No cramping. No fever or chills. No family at bedside. Discussed with nursing. OBJECTIVE: VITAL SIGNS: She is afebrile, heart rate 68, respirations 18, oxygen saturation 96% on room air, and blood pressure 97/52. CARDIOVASCULAR SYSTEM: S1 and S2 plus. RESPIRATORY SYSTEM: Normal vesicular breath sounds. ABDOMEN: Soft, nontender. Bowel sounds heard in all quadrants. EXTREMITIES: Without cyanosis or clubbing. CENTRAL NERVOUS SYSTEMS: Awake and responsive. Generalized weakness. IMPRESSION: 1. Chronic ischemic cardiomyopathy, requiring automatic implantable cardioverter-defibrillator placement. 2. Chronic systolic congestive heart failure. 3. Diabetes mellitus, type 2. 4. Anemia of chronic disease. 5. Deconditioning. 6. Dyslipidemia. 7. Hypothyroidism. PLAN: 1. Continue current medications. 2. 1800-calorie heart healthy, ADA diet. 3. Accu-Cheks with sliding scale coverage. 4. Imodium 1 tablet b.i.d. 5. MiraLAX on hold. 6. Physical therapy. 7. Routine laboratory values. 8. Discussed with the patient and nursing. Job ID: [id number]
[2018-10-24] MEDS: Atorvastatin Calcium 20 MG TAB PO SCH (20:10)
[2018-10-24] MEDS: HumaLOG 300 UNITS/3 ML VIAL SC PRN (20:10)
[2018-10-24] MEDS: Acetaminophen 325 MG TAB PO PRN (23:37)
[2018-10-25] MEDS: Enoxaparin Sodium 30 MG/0.3 ML SYRINGE SC SCH (08:22)
[2018-10-25] MEDS: Carvedilol 3.125 MG TAB PO SCH ×2 (08:23→20:11)
[2018-10-25] MEDS: Aspirin 81 mg Enteric Coated Tablet PO SCH (08:23)
[2018-10-25] MEDS: Fish Oil 1,000 MG CAP PO SCH (08:23)
[2018-10-25] MEDS: glipiZIDE 5 MG TAB PO SCH ×2 (08:23→17:27)
[2018-10-25] MEDS: Allopurinol 100 MG TAB PO SCH (08:23)
[2018-10-25] MEDS: Furosemide 40 MG TAB PO SCH ×2 (08:23→13:58)
[2018-10-25] MEDS: Polyethylene Glycol 3350 17 GM Packet PO SCH (08:24)
[2018-10-25] MEDS: HumaLOG 300 UNITS/3 ML VIAL SC PRN ×2 (12:31→20:11)
[2018-10-25] MEDS: Atorvastatin Calcium 20 MG TAB PO SCH (20:11)
[2018-10-26] MEDS: Aspirin 81 mg Enteric Coated Tablet PO SCH (08:39)
[2018-10-26] MEDS: Carvedilol 3.125 MG TAB PO SCH ×2 (08:39→21:11)
[2018-10-26] MEDS: glipiZIDE 5 MG TAB PO SCH ×2 (08:39→16:29)
[2018-10-26] MEDS: Allopurinol 100 MG TAB PO SCH (08:39)
[2018-10-26] MEDS: Fish Oil 1,000 MG CAP PO SCH (08:40)
[2018-10-26] MEDS: Polyethylene Glycol 3350 17 GM Packet PO SCH (08:40)
[2018-10-26] MEDS: Enoxaparin Sodium 30 MG/0.3 ML SYRINGE SC SCH (08:40)
[2018-10-26] MEDS: Furosemide 40 MG TAB PO SCH ×2 (08:40→14:14)
[2018-10-26] MEDS: HumaLOG 300 UNITS/3 ML VIAL SC PRN ×2 (11:58→17:00)
--- NOTE | 2018-10-26 14:58 | PRG ---
DATE OF SERVICE: 10/26/2018 SUBJECTIVE: Ms. Amor is an 82-year-old female, who is resting in chair and sleeping. Denies any concerns. Tolerating her therapy. She is noticing some increasing swelling in her legs, but I think mostly it is due to her being in her chair most of the time. She denies any PND or orthopnea. She is already on Lasix 40 b.i.d. Plan is to add Zaroxolyn 2.5 mg p.o. before her morning Lasix. OBJECTIVE: VITAL SIGNS: She is afebrile. Heart rate is 70, respirations 20, oxygen saturation 97% on room air, and blood pressure 102/54. CARDIOVASCULAR SYSTEM: S1 and S2 plus. RESPIRATORY SYSTEM: Normal vesicular breath sounds. ABDOMEN: Soft and nontender. Bowel sounds heard in all quadrants. EXTREMITIES: 1 to 2+ edema. CENTRAL NERVOUS SYSTEM: Awake and responsive. Generalized weakness. LABORATORY DATA: Blood sugars are 216, 85, 194, 101, and 209. IMPRESSION: 1. Chronic systolic congestive heart failure. 2. Ischemic cardiomyopathy, requiring AICD placement. 3. Diabetes mellitus, type 2. 4. Hypertension. 5. Dyslipidemia. 6. Deconditioning. PLAN: 1. Continue current medications, but add Zaroxolyn 2.5 mg p.o. 30 minutes before her morning dose of Lasix, starting tomorrow. 2. 1800-calorie heart healthy ADA diet. 3. Accu-Cheks with sliding scale coverage. 4. Deep venous thrombosis prophylaxis. 5. Decubitus precautions. 6. Stress ulcer prophylaxis. 7. Continue physical therapy. 8. Recheck laboratory values in the morning. Job ID: [id number]
[2018-10-26] MEDS: Atorvastatin Calcium 20 MG TAB PO SCH (21:11)
[2018-10-27] MEDS: Acetaminophen 325 MG TAB PO PRN (01:09)
[2018-10-27] MEDS: HumaLOG 300 UNITS/3 ML VIAL SC PRN ×2 (05:49→12:58)
[2018-10-27 05:51] LABS: #Basophils 0.1 thou/uL (0.0-0.2); #Eosinphils 0.1 thou/uL (0.0-0.7); #Monocytes 0.5 thou/uL (0.11-0.59); #Neutrophils 3.9 thou/uL (1.40-6.50); %Basophils 1.5 % (0.0-1.0); %Eosinophils 1.6 % (0.0-10.0); %Lymphocytes 29.9 % (21.0-51.0); %Monocytes 7.6 % (0.0-10.0); %Neutrophils 59.4 % (42.0-75.0); Mean Corpuscular HGB CONC 31.2 g/dL (32.0-36.0); Mean Corpuscular Volume 96.1 fL (78.0-98.0); Platelet Count 150 thou/uL (130-400); RBC Distribution Width 16.7 % (11.5-14.5); Red Blood Cell (RBC) Count 3.01 mill/uL (4.20-5.40); White Blood Cell (WBC) Count 6.6 thou/uL (4.8-10.8)
[2018-10-27 06:01] LABS: Anion Gap 15 mmol/L (10-20); BUN (Urea Nitrogen) 56 mg/dL (9.8-20.1); Calc. Creatinine Clearance 26 mL/min (70-130); Calcium 9.1 mg/dL (7.8-10.44); Carbon Dioxide 23 mmol/L (23-31); Chloride 99 mmol/L (98-107); Estimated GFR-MDRD 27; Glucose 152 mg/dL (83-110); Potassium 3.3 mmol/L (3.5-5.1); Sodium 134 mmol/L (136-145)
[2018-10-27] MEDS: glipiZIDE 5 MG TAB PO SCH ×2 (08:23→17:16)
[2018-10-27] MEDS: Allopurinol 100 MG TAB PO SCH (08:23)
[2018-10-27] MEDS: Enoxaparin Sodium 30 MG/0.3 ML SYRINGE SC SCH (08:24)
[2018-10-27] MEDS: Polyethylene Glycol 3350 17 GM Packet PO SCH (08:24)
[2018-10-27] MEDS: Fish Oil 1,000 MG CAP PO SCH (08:24)
[2018-10-27] MEDS: Carvedilol 3.125 MG TAB PO SCH ×2 (08:24→20:28)
[2018-10-27] MEDS: Furosemide 40 MG TAB PO SCH ×2 (08:24→14:22)
[2018-10-27] MEDS: Aspirin 81 mg Enteric Coated Tablet PO SCH (08:24)
[2018-10-27] MEDS ORDERED: Metolazone 2.5 MG TAB PO SCH (08:30)
[2018-10-27] MEDS ORDERED: Metolazone 5 MG TAB PO SCH (11:45)
[2018-10-27] MEDS ORDERED: Potassium Chloride 20 MEQ TAB PO SCH (13:30)
--- NOTE | 2018-10-27 15:17 | PRG ---
DATE OF SERVICE: 10/27/2018 SUBJECTIVE: Ms. Amor is resting in bed. She denies any complaints. She states that she is urinating more since starting her on the Zaroxolyn. She denies any PND or orthopnea. OBJECTIVE: VITAL SIGNS: She is afebrile. Heart rate 65, respirations 16, oxygen saturation 99% on room air, blood pressure 100/59. CARDIOVASCULAR SYSTEM: S1 and S2 plus. RESPIRATORY SYSTEM: Normal vesicular breath sounds. ABDOMEN: Soft, nontender. Bowel sounds heard in all quadrants. EXTREMITIES: Without cyanosis or clubbing, about 1+ edema. CENTRAL NERVOUS SYSTEM: Awake and responsive. Generalized weakness. LABORATORY VALUES: Show a white count of 6.6, H and H are 9 and 28.9. Chemistry; sodium 134, potassium 3.3, BUN and creatinine 56 and 1.81. BNP is 1800. Blood sugars are 186, 164, 192. IMPRESSION: 1. Chronic systolic congestive heart failure. 2. Ischemic cardiomyopathy requiring AICD placement. 3. Diabetes mellitus, type 2. 4. Hypertension. 5. Dyslipidemia. 6. Improving deconditioning, possible chronic kidney disease. PLAN: 1. Continue Zaroxolyn before her morning Lasix. 2. Advised the patient to limit her fluid intake to 1.5 L in 24 hours. 3. Continue other medications. 4. 1800-calorie heart-healthy ADA diet. 5. Accu-Cheks with sliding scale coverage. 6. DVT prophylaxis. 7. Decubitus precautions. 8. Stress ulcer prophylaxis. 9. Continue physical therapy. Job ID: [id number]
[2018-10-27 18:41] VITALS: BMI 23.6
[2018-10-27] MEDS: Atorvastatin Calcium 20 MG TAB PO SCH (20:27)
[2018-10-28 05:47] LABS: Anion Gap 17 mmol/L (10-20); BUN (Urea Nitrogen) 58 mg/dL (9.8-20.1); Calc. Creatinine Clearance 25 mL/min (70-130); Calcium 9.4 mg/dL (7.8-10.44); Carbon Dioxide 25 mmol/L (23-31); Chloride 96 mmol/L (98-107); Estimated GFR-MDRD 26; Glucose 223 mg/dL (83-110); Potassium 3.7 mmol/L (3.5-5.1); Sodium 134 mmol/L (136-145)
[2018-10-28] MEDS: HumaLOG 300 UNITS/3 ML VIAL SC PRN ×2 (06:05→17:14)
[2018-10-28] MEDS: glipiZIDE 5 MG TAB PO SCH ×2 (08:06→17:14)
[2018-10-28] MEDS: Furosemide 40 MG TAB PO SCH ×2 (08:06→14:09)
[2018-10-28] MEDS: Carvedilol 3.125 MG TAB PO SCH ×2 (08:06→20:24)
[2018-10-28] MEDS: Metolazone 5 MG TAB PO SCH (08:06)
[2018-10-28] MEDS: Allopurinol 100 MG TAB PO SCH (08:06)
[2018-10-28] MEDS: Aspirin 81 mg Enteric Coated Tablet PO SCH (08:08)
[2018-10-28] MEDS: Fish Oil 1,000 MG CAP PO SCH (08:08)
[2018-10-28] MEDS: Enoxaparin Sodium 30 MG/0.3 ML SYRINGE SC SCH (08:08)
[2018-10-28] MEDS: Polyethylene Glycol 3350 17 GM Packet PO SCH (08:10)
[2018-10-28] MEDS: Atorvastatin Calcium 20 MG TAB PO SCH (20:24)
[2018-10-29 05:50] LABS: ALT (SGPT) 30 U/L (8-55); AST (SGOT) 29 U/L (5-34); Albumin 3.5 g/dL (3.4-4.8); Alkaline Phosphatase 173 U/L (40-150); Anion Gap 19 mmol/L (10-20); BUN (Urea Nitrogen) 60 mg/dL (9.8-20.1); Bilirubin, Total 0.6 mg/dL (0.2-1.2); Calc. Creatinine Clearance 25 mL/min (70-130); Calcium 9.6 mg/dL (7.8-10.44); Carbon Dioxide 24 mmol/L (23-31); Chloride 94 mmol/L (98-107); Cholesterol 145 mg/dl (< 200 Desired); Estimated GFR-MDRD 25; Globulin 2.7 g/dL (2.4-3.5); Glucose 154 mg/dL (83-110); HDL Cholesterol 71 mg/dL (>60 Neg Risk); LDL Cholesterol, Calculated 66 mg/dL; Potassium 3.7 mmol/L (3.5-5.1); Protein, Total 6.2 g/dL (6.0-8.3); Sodium 133 mmol/L (136-145); Triglycerides 41 mg/dL (Less than 150)
[2018-10-29] MEDS: HumaLOG 300 UNITS/3 ML VIAL SC PRN ×3 (05:58→17:29)
[2018-10-29] MEDS: Allopurinol 100 MG TAB PO SCH (08:20)
[2018-10-29] MEDS: Furosemide 40 MG TAB PO SCH ×2 (08:20→13:16)
[2018-10-29] MEDS: glipiZIDE 5 MG TAB PO SCH ×2 (08:20→17:30)
[2018-10-29] MEDS: Metolazone 5 MG TAB PO SCH (08:20)
[2018-10-29] MEDS: Fish Oil 1,000 MG CAP PO SCH (08:20)
[2018-10-29] MEDS: Aspirin 81 mg Enteric Coated Tablet PO SCH (08:20)
[2018-10-29] MEDS: Enoxaparin Sodium 30 MG/0.3 ML SYRINGE SC SCH (08:21)
[2018-10-29] MEDS: Carvedilol 3.125 MG TAB PO SCH ×2 (08:23→20:46)
[2018-10-29] MEDS: Polyethylene Glycol 3350 17 GM Packet PO SCH (08:24)
--- NOTE | 2018-10-29 13:37 | PRG ---
DATE OF SERVICE: 10/25/2018 SUBJECTIVE: Ms. Amor is doing the same. Denies any complaints. Noting slightly increased swelling. We will start her on diuretics. We will add Zaroxolyn to her morning Lasix. OBJECTIVE: VITAL SIGNS: She is afebrile. Heart rate is 72, respirations 16, oxygen saturation 99% on room air, and blood pressure 100/59. CARDIOVASCULAR: S1 and S2 plus. RESPIRATORY: Normal vesicular breath sounds. ABDOMEN: Soft, nontender. Bowel sounds heard in all quadrants. EXTREMITIES: Without cyanosis, clubbing. 1 to 2+ edema. CENTRAL NERVOUS SYSTEM: AAO x3. Generalized weakness. Otherwise nonfocal. IMPRESSION: 1. Chronic systolic congestive heart failure. 2. Chronic kidney disease stage 2 to 3. 3. Diabetes mellitus type 2. 4. Hypertension. 5. Dyslipidemia. 6. Ischemic cardiomyopathy. 7. Improving deconditioning. PLAN: 1. Continue current medications. 2. Add Zaroxolyn before her morning Lasix. 3. Monitor renal function. 4. DVT prophylaxis. 5. Decubitus precautions. 6. Stress ulcer prophylaxis. 7. Incision care. 8. Routine laboratory values. 9. Physical therapy. Job ID: [id number]
--- NOTE | 2018-10-29 13:45 | PRG ---
DATE OF SERVICE: 10/29/2018 SUBJECTIVE: Ms. Amor is up in her chair and feels like her leg swelling is improving. OBJECTIVE: VITAL SIGNS: She is afebrile. Heart rate is 67, respirations 18, oxygen saturation 98% on room air, blood pressure is 100/61. CARDIOVASCULAR: S1, S2 plus. RESPIRATORY: Normal vascular breath sounds. ABDOMEN: Soft, nontender. Bowel sounds in all quadrants. EXTREMITIES: Without cyanosis, clubbing. Peripheral pulses are palpable. She does have 1 to 2+ pitting edema still. CENTRAL NERVOUS SYSTEM: Awake and responsive. Generalized weakness. IMPRESSION: 1. Chronic systolic congestive heart failure. 2. Ischemic cardiomyopathy requiring automatic implantable cardioverter defibrillator placement. 3. Diabetes mellitus type 2. 4. Hypertension. 5. Dyslipidemia. 6. Improving deconditioning. PLAN: 1. Continue current medications. Unfortunately, she is getting both the Zaroxolyn and Lasix at the same time even though it is ordered 30 minutes prior to Lasix. We will reinforce to nursing to make sure they gave a 30 minute interval between the two. 2. Nutritional support with 1800-calorie heart healthy ADA diet. 3. Accu-Cheks with sliding scale coverage. 4. Physical therapy. 5. Discharge planning. Job ID: [id number]
[2018-10-29] MEDS: Atorvastatin Calcium 20 MG TAB PO SCH (20:46)
[2018-10-30] MEDS: Metolazone 5 MG TAB PO SCH (07:34)
[2018-10-30] MEDS: glipiZIDE 5 MG TAB PO SCH ×2 (07:35→16:41)
[2018-10-30] MEDS: Carvedilol 3.125 MG TAB PO SCH ×2 (08:48→20:05)
[2018-10-30] MEDS: Aspirin 81 mg Enteric Coated Tablet PO SCH (08:48)
[2018-10-30] MEDS: Enoxaparin Sodium 30 MG/0.3 ML SYRINGE SC SCH (08:48)
[2018-10-30] MEDS: Allopurinol 100 MG TAB PO SCH (08:48)
[2018-10-30] MEDS: Fish Oil 1,000 MG CAP PO SCH (08:48)
[2018-10-30] MEDS: Furosemide 40 MG TAB PO SCH ×2 (08:49→14:29)
[2018-10-30] MEDS: Polyethylene Glycol 3350 17 GM Packet PO SCH (08:49)
[2018-10-30] MEDS: HumaLOG 300 UNITS/3 ML VIAL SC PRN ×2 (12:13→21:30)
--- NOTE | 2018-10-30 14:52 | PRG ---
DATE OF SERVICE: 10/30/2018 SUBJECTIVE: Ms. Amor is doing the same. Denies any complaints. Resting comfortably. Tolerating her therapy. Happy with her progress. OBJECTIVE: VITAL SIGNS: She is afebrile, heart rate 62, respirations 18, oxygen saturation 96% on room air, and blood pressure 103/61. CARDIOVASCULAR SYSTEM: S1 and S2 plus. RESPIRATORY SYSTEM: Normal vesicular breath sounds. ABDOMEN: Soft and nontender. Bowel sounds heard in all quadrants. EXTREMITIES: Without cyanosis or clubbing. 1+ edema. CENTRAL NERVOUS SYSTEM: Awake and responsive. Generalized weakness. LABORATORY DATA: Blood sugars are 189, 202, 106, and 195. TSH was slightly elevated at 9.6. The patient states that Dr. Mendez has been following it and apparently has ordered more tests. IMPRESSION: 1. Chronic systolic congestive heart failure. 2. Ischemic cardiomyopathy. 3. Diabetes mellitus, type 2. 4. Hypertension. 5. Dyslipidemia. 6. Elevated TSH. 7. Improving deconditioning. PLAN: 1. Continue current medications. 2. 1800 calorie heart healthy ADA diet. 3. Accu-Cheks with sliding scale coverage. 4. DVT prophylaxis. 5. Decubitus precautions. 6. Stress ulcer prophylaxis. 7. Outpatient followup with Cardiology. 8. Again, reinforced to nursing to give her Zaroxolyn 30 minutes before her morning Lasix. Job ID: [id number]
[2018-10-30] MEDS: Atorvastatin Calcium 20 MG TAB PO SCH (20:05)
[2018-10-31] MEDS: Acetaminophen 325 MG TAB PO PRN (01:21)
[2018-10-31] MEDS: Metolazone 5 MG TAB PO SCH (07:39)
[2018-10-31] MEDS: glipiZIDE 5 MG TAB PO SCH (07:39)
[2018-10-31] MEDS: Enoxaparin Sodium 30 MG/0.3 ML SYRINGE SC SCH (08:09)
[2018-10-31] MEDS: Aspirin 81 mg Enteric Coated Tablet PO SCH (08:09)
[2018-10-31] MEDS: Allopurinol 100 MG TAB PO SCH (08:09)
[2018-10-31] MEDS: Carvedilol 3.125 MG TAB PO SCH (08:09)
[2018-10-31] MEDS: Furosemide 40 MG TAB PO SCH ×2 (08:10→14:15)
[2018-10-31] MEDS: Fish Oil 1,000 MG CAP PO SCH (08:10)
[2018-10-31 09:32] VITALS: BP 112/63; TEMP 98
[2018-10-31] MEDS: Polyethylene Glycol 3350 17 GM Packet PO SCH (10:06)
[2018-10-31] MEDS: HumaLOG 300 UNITS/3 ML VIAL SC PRN (12:27)
--- NOTE | 2018-11-01 11:48 | DIS ---
DATE OF ADMISSION: 10/11/2018 DATE OF DISCHARGE: 10/31/2018 PRINCIPAL DIAGNOSIS: Ischemic cardiomyopathy, status post automatic implantable cardioverter-defibrillator placement. SECONDARY DIAGNOSES: 1. Chronic systolic congestive heart failure with ejection fraction of 10% to 15%. 2. Chronic lower extremity edema with resolved cellulitis. 3. Coronary artery disease. 4. Atrial fibrillation, status post Watchman procedure. 5. Hypertension. 6. Dyslipidemia. 7. Hypothyroidism. 8. Osteoarthritis. 9. Diabetes mellitus, type 2. 10. History of gastrointestinal bleeding, stable so far. 11. History of gout. COMPLICATIONS: None. ADVERSE REACTIONS: None. PROCEDURES: None. CONSULTATIONS: Physical Therapy and Occupational Therapy. HOSPITAL COURSE: The patient was admitted on 10/[address] Sequeira after undergoing AICD placement for therapy. She was also on antibiotics for lower extremity cellulitis. Her cellulitis resolved. She continued to have persistent edema and Zaroxolyn 2.5 mg before her morning Lasix was added, which really did not make a whole lot difference. She is off her oxygen. She is doing well with therapy and was deemed safe to go home. 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 No changes to her medications. Discussed with therapy and they state she also does not need any equipment. PHYSICAL EXAMINATION: VITAL SIGNS: On the day of discharge, she is afebrile, heart rate 60, respirations 20, oxygen saturation 100% on room air, and blood pressure 112/63. CARDIOVASCULAR SYSTEM: S1-S2 plus. RESPIRATORY SYSTEM: Normal vesicular breath sounds. ABDOMEN: Soft and nontender. Bowel sounds heard in all quadrants. EXTREMITIES: Without cyanosis, clubbing, 1 to 2+ edema. LABORATORY DATA: Blood sugars 118, 220, 103, and 168. Her TSH was elevated at 9.6197, but the patient states that Dr. Mendez has been monitoring it and she does not want us to do any further workup or start her on any medications. Her BUN and creatinine increased from her baseline, it is now 60 and 1.88, so I advised her that she will not go home on Zaroxolyn. DISCHARGE MEDICATIONS: Same as admission, which is; 1. Tylenol 650 p.o. q.4 p.r.n. 2. Allopurinol 300 mg daily. 3. Ecotrin 81 mg daily. 4. Lipitor 40 mg daily. 5. Carvedilol 3.125 mg b.i.d. 6. Lasix 40 mg b.i.d. 7. Glucotrol 5 mg b.i.d. 8. Protonix 40 mg daily. 9. MiraLAX 17 g in 8 ounces of water daily. 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 An 1800-calorie heart healthy ADA diet. Activity as tolerated. She is to call us with any questions or concerns. For full details, please see chart. Total time spent on the discharge including coordination of care was 35 minutes. Job ID: [id number]
== END 2018-10-31 15:06 | disposition home or self-care (01) | DRG 949 ==
LOC: NAV ACUTE 14:50
PROVIDERS: ADMIT Internal Medicine; ATTEND Internal Medicine
DX: Z48.812 Encounter for surgical aftercare following surgery on the circulatory system (principal); L03.115 Cellulitis of right lower limb; N17.9 Acute kidney failure, unspecified; E87.1 Hypo-osmolality and hyponatremia; I13.0 Hypertensive heart and chronic kidney disease with heart failure and stage 1 through stage 4 chronic kidney disease, or unspecified chronic kidney disease; I50.22 Chronic systolic (congestive) heart failure; Z95.810 Presence of automatic (implantable) cardiac defibrillator; I48.91 Unspecified atrial fibrillation; I25.10 Atherosclerotic heart disease of native coronary artery without angina pectoris; Z95.5 Presence of coronary angioplasty implant and graft; E78.5 Hyperlipidemia, unspecified; E03.9 Hypothyroidism, unspecified; M19.91 Primary osteoarthritis, unspecified site; M10.9 Gout, unspecified; Z87.11 Personal history of peptic ulcer disease; E11.22 Type 2 diabetes mellitus with diabetic chronic kidney disease; N18.3 Chronic kidney disease, stage 3 (moderate); I25.5 Ischemic cardiomyopathy; R26.89 Other abnormalities of gait and mobility; I25.2 Old myocardial infarction
CPT/HCPCS: 36415; 36416; 80048; 80053; 80061; 83880; 84443; 85025; J1650

== ENCOUNTER 2022-01-15 10:37 | Inpatient (IN) | payer MEDICARE, BC ==
[2022-01-15] MEDS ORDERED: Dextrose 50% Abboject 50 ML SYRINGE IVP PRN (14:15)
[2022-01-15] MEDS ORDERED: Dextrose 5% in Water 1,000 ML IV PRN (14:15)
[2022-01-15] MEDS ORDERED: cloNIDine 0.1 MG TAB PO PRN (14:20)
[2022-01-15] MEDS ORDERED: Ondansetron ODT 4 MG TAB PO PRN (14:26)
[2022-01-15] MEDS: Acetaminophen 325 MG TAB PO SCH ×2 (16:05→21:15)
[2022-01-15] MEDS: HumaLOG 300 UNITS/3 ML VIAL SC PRN ×2 (17:09→21:09)
[2022-01-15] MEDS: Senokot S 8.6-50 MG TAB PO SCH (21:07)
[2022-01-15] MEDS: Carvedilol 3.125 MG TAB PO SCH (21:08)
[2022-01-15] MEDS: Famotidine 20 MG TAB PO SCH (21:08)
[2022-01-15] MEDS: Heparin 5,000 UNITS/ML VIAL SC SCH (21:08)
[2022-01-16] MEDS: Acetaminophen 325 MG TAB PO SCH ×4 (02:35→21:20)
[2022-01-16] MEDS: Levothyroxine Sodium 50 MCG TAB PO SCH (06:08)
[2022-01-16] MEDS: HumaLOG 300 UNITS/3 ML VIAL SC PRN ×3 (06:40→17:52)
[2022-01-16] MEDS ORDERED: HumaLOG 300 UNITS/3 ML VIAL SC PRN (07:15)
[2022-01-16] MEDS: Lantus 1000 UNITS/10 ML VIAL SC SCH (07:59)
[2022-01-16] MEDS: Heparin 5,000 UNITS/ML VIAL SC SCH ×2 (07:59→21:19)
[2022-01-16] MEDS: Aspirin 81 mg Enteric Coated Tablet PO SCH (08:00)
[2022-01-16] MEDS: Polyethylene Glycol 3350 17 GM Packet PO SCH (08:00)
[2022-01-16] MEDS: Potassium Chloride 20 MEQ TAB PO SCH (08:00)
[2022-01-16] MEDS: Senokot S 8.6-50 MG TAB PO SCH ×2 (08:01→21:18)
[2022-01-16] MEDS: Furosemide 40 MG TAB PO SCH ×2 (08:01→14:37)
[2022-01-16] MEDS: Allopurinol 100 MG TAB PO SCH (08:01)
[2022-01-16] MEDS: Carvedilol 3.125 MG TAB PO SCH ×2 (08:01→21:19)
[2022-01-16] MEDS ORDERED: Benzonatate 100 MG CAP PO PRN (08:16)
[2022-01-16] MEDS ORDERED: Sodium Chloride 0.65% Nasal 44 ML BOT EA NARE PRN (08:16)
[2022-01-16] MEDS ORDERED: Promethazine HCl 25 MG SUPP PR PRN (08:16)
[2022-01-16] MEDS ORDERED: Calcium Carbonate 500 MG ChewTAB PO PRN (08:16)
[2022-01-16] MEDS ORDERED: Artificial Tear Sol 15 ML BOT EA EYE PRN (08:16)
[2022-01-16] MEDS ORDERED: Bisacodyl 10 MG SUPP PR PRN (08:16)
[2022-01-16] MEDS ORDERED: Bisacodyl 5 MG TAB PO PRN (08:16)
[2022-01-16] MEDS ORDERED: Cepastat Lozenges 1 LOZ PO PRN (08:16)
[2022-01-16] MEDS: Rosuvastatin 10 MG TAB PO SCH ×2 (11:29→21:19)
[2022-01-16] MEDS: Famotidine 20 MG TAB PO SCH (21:18)
[2022-01-17] MEDS: Acetaminophen 325 MG TAB PO SCH ×4 (03:30→20:22)
[2022-01-17] MEDS: Levothyroxine Sodium 50 MCG TAB PO SCH (05:48)
[2022-01-17 06:01] LABS: #Eosinphils 0.1 thou/uL (0.0-0.7); #Lymphocytes 1.4 thou/uL (1.20-3.40); #Monocytes 0.5 thou/uL (0.11-0.59); #Neutrophils 6.6 thou/uL (1.40-6.50); %Basophils 0.6 % (0.0-1.0); %Eosinophils 1.7 % (0.0-10.0); %Lymphocytes 15.8 % (21.0-51.0); %Monocytes 6.2 % (0.0-10.0); %Neutrophils 75.8 % (42.0-75.0); Mean Corpuscular HGB CONC 32.3 g/dL (32.0-36.0); Mean Corpuscular Hemoglobin 32.4 pg (27.0-31.0); Mean Platelet Volume 8.1 fL (7.4-10.4); Platelet Count 107 10x3/uL (130-400); RBC Distribution Width 14.1 % (11.5-14.5); Red Blood Cell (RBC) Count 2.78 mill/uL (4.20-5.40); White Blood Cell (WBC) Count 8.7 10x3/uL (4.8-10.8)
[2022-01-17 06:11] LABS: Anion Gap 13 mmol/L (10-20); BUN (Urea Nitrogen) 59 mg/dL (9.8-20.1); Calc. Creatinine Clearance 22 mL/min (70-130); Calcium 8.4 mg/dL (7.8-10.44); Carbon Dioxide 24 mmol/L (23-31); Chloride 104 mmol/L (98-107); Estimated GFR 23; Glucose 146 mg/dL (83-110); Potassium 3.7 mmol/L (3.5-5.1); Sodium 137 mmol/L (136-145)
[2022-01-17] MEDS: Allopurinol 100 MG TAB PO SCH (08:53)
[2022-01-17] MEDS: Aspirin 81 mg Enteric Coated Tablet PO SCH (08:53)
[2022-01-17] MEDS: Carvedilol 3.125 MG TAB PO SCH ×2 (08:53→20:19)
[2022-01-17] MEDS: Furosemide 40 MG TAB PO SCH ×2 (08:53→14:35)
[2022-01-17] MEDS: Potassium Chloride 20 MEQ TAB PO SCH (08:53)
[2022-01-17] MEDS: Heparin 5,000 UNITS/ML VIAL SC SCH ×2 (08:54→20:19)
[2022-01-17] MEDS: Polyethylene Glycol 3350 17 GM Packet PO SCH (08:54)
[2022-01-17] MEDS: Senokot S 8.6-50 MG TAB PO SCH ×2 (08:54→20:20)
[2022-01-17] MEDS: Lantus 1000 UNITS/10 ML VIAL SC SCH (09:00)
[2022-01-17] MEDS: HumaLOG 300 UNITS/3 ML VIAL SC PRN ×2 (12:11→17:31)
[2022-01-17] MEDS: Acetaminophen/Codeine 30-300mg Tablet PO PRN (20:19)
[2022-01-17] MEDS: Rosuvastatin 10 MG TAB PO SCH (20:20)
[2022-01-17] MEDS: Famotidine 20 MG TAB PO SCH (20:20)
[2022-01-18] MEDS: Acetaminophen 325 MG TAB PO SCH ×4 (04:12→20:25)
[2022-01-18] MEDS: Levothyroxine Sodium 50 MCG TAB PO SCH (05:39)
[2022-01-18] MEDS: HumaLOG 300 UNITS/3 ML VIAL SC PRN ×3 (06:12→17:23)
[2022-01-18] MEDS: Acetaminophen/Codeine 30-300mg Tablet PO PRN (07:26)
[2022-01-18] MEDS: Allopurinol 100 MG TAB PO SCH (08:48)
[2022-01-18] MEDS: Aspirin 81 mg Enteric Coated Tablet PO SCH (08:48)
[2022-01-18] MEDS: Potassium Chloride 20 MEQ TAB PO SCH (08:48)
[2022-01-18] MEDS: Carvedilol 3.125 MG TAB PO SCH ×2 (08:48→22:21)
[2022-01-18] MEDS: Senokot S 8.6-50 MG TAB PO SCH ×2 (08:48→20:24)
[2022-01-18] MEDS: Furosemide 40 MG TAB PO SCH ×2 (08:48→13:08)
[2022-01-18] MEDS: Polyethylene Glycol 3350 17 GM Packet PO SCH (08:48)
[2022-01-18] MEDS: Heparin 5,000 UNITS/ML VIAL SC SCH ×2 (08:49→20:25)
[2022-01-18] MEDS: Lantus 1000 UNITS/10 ML VIAL SC SCH (08:55)
[2022-01-18] MEDS: Famotidine 20 MG TAB PO SCH (20:24)
[2022-01-18] MEDS: Rosuvastatin 10 MG TAB PO SCH (20:25)
[2022-01-19] MEDS: Acetaminophen 325 MG TAB PO SCH ×4 (03:40→21:14)
[2022-01-19] MEDS: Levothyroxine Sodium 50 MCG TAB PO SCH (05:24)
[2022-01-19] MEDS: HumaLOG 300 UNITS/3 ML VIAL SC PRN ×3 (05:29→21:57)
[2022-01-19] MEDS ORDERED: Senokot S 8.6-50 MG TAB PO PRN ×2 (08:22→08:24)
[2022-01-19] MEDS ORDERED: Bisacodyl 5 MG TAB PO PRN (08:23)
[2022-01-19] MEDS ORDERED: Bisacodyl 10 MG SUPP PR PRN (08:24)
[2022-01-19] MEDS: Potassium Chloride 20 MEQ TAB PO SCH (09:05)
[2022-01-19] MEDS: Allopurinol 100 MG TAB PO SCH (09:06)
[2022-01-19] MEDS: Aspirin 81 mg Enteric Coated Tablet PO SCH (09:07)
[2022-01-19] MEDS: Carvedilol 3.125 MG TAB PO SCH ×2 (09:08→21:14)
[2022-01-19] MEDS: Furosemide 40 MG TAB PO SCH ×2 (09:08→13:21)
[2022-01-19] MEDS: Polyethylene Glycol 3350 17 GM Packet PO SCH (09:10)
[2022-01-19] MEDS: Lantus 1000 UNITS/10 ML VIAL SC SCH (09:12)
[2022-01-19 09:26] LABS: #Basophils 0.1 thou/uL (0.0-0.2); #Eosinphils 0.2 thou/uL (0.0-0.7); #Lymphocytes 1.7 thou/uL (1.20-3.40); #Monocytes 0.8 thou/uL (0.11-0.59); #Neutrophils 9.9 thou/uL (1.40-6.50); %Eosinophils 1.4 % (0.0-10.0); %Monocytes 6.6 % (0.0-10.0); %Neutrophils 77.9 % (42.0-75.0); Hemoglobin 10.2 g/dL (12.0-16.0); Mean Corpuscular HGB CONC 33.1 g/dL (32.0-36.0); Mean Corpuscular Hemoglobin 33.1 pg (27.0-31.0); Mean Platelet Volume 7.9 fL (7.4-10.4); Platelet Count 150 10x3/uL (130-400); RBC Distribution Width 14.3 % (11.5-14.5); Red Blood Cell (RBC) Count 3.07 mill/uL (4.20-5.40); White Blood Cell (WBC) Count 12.7 10x3/uL (4.8-10.8)
[2022-01-19 09:33] LABS: Anion Gap 17 mmol/L (10-20); BUN (Urea Nitrogen) 56 mg/dL (9.8-20.1); Calc. Creatinine Clearance 18 mL/min (70-130); Calcium 9.2 mg/dL (7.8-10.44); Carbon Dioxide 24 mmol/L (23-31); Chloride 96 mmol/L (98-107); Estimated GFR 19; Glucose 274 mg/dL (83-110); Potassium 4.2 mmol/L (3.5-5.1); Sodium 133 mmol/L (136-145)
[2022-01-19 15:11] LABS: Bilirubin Negative (Negative); Blood, Urine Trace (Negative); CAUTI Indications for Culture Dysuria,urgency,freq; Clarity Slightly Cloudy (Clear); Glucose, Urine (Dipstick) Negative (Negative); Ketone, Urine Negative (Negative); Leukocyte Negative (Negative); Nitrite Negative (Negative); Protein, Urine (Dipstick) Negative (Neg-Trace); Urobilinogen 0.2 mg/dL (Less than 2); pH, Urine 5.5 (5.0-9.0)
[2022-01-19 15:17] LABS: Specific Gravity, Urine 1.006 (1.002-1.036); Urine Culture Reflex No No
[2022-01-19 15:18] LABS: Bacteria/HPF None Seen HPF (None Seen); RBC/HPF 0-3 HPF (0-3); Squamous Epithelial 0-3 HPF (0-3); WBC/HPF 0-3 HPF (0-3)
[2022-01-19] MEDS: Famotidine 20 MG TAB PO SCH (21:13)
[2022-01-19] MEDS: Rosuvastatin 10 MG TAB PO SCH (21:14)
[2022-01-20] MEDS: Acetaminophen 325 MG TAB PO SCH ×4 (03:00→20:54)
[2022-01-20 05:25] LABS: #Basophils 0.1 thou/uL (0.0-0.2); #Eosinphils 0.1 thou/uL (0.0-0.7); #Lymphocytes 1.4 thou/uL (1.20-3.40); #Monocytes 0.7 thou/uL (0.11-0.59); #Neutrophils 7.3 thou/uL (1.40-6.50); %Basophils 0.6 % (0.0-1.0); %Eosinophils 1.3 % (0.0-10.0); %Lymphocytes 14.8 % (21.0-51.0); %Monocytes 7.2 % (0.0-10.0); %Neutrophils 76.2 % (42.0-75.0); Hemoglobin 8.5 g/dL (12.0-16.0); Mean Corpuscular HGB CONC 32.2 g/dL (32.0-36.0); Mean Corpuscular Hemoglobin 32.7 pg (27.0-31.0); Mean Platelet Volume 8.8 fL (7.4-10.4); Platelet Count 131 10x3/uL (130-400); Red Blood Cell (RBC) Count 2.59 mill/uL (4.20-5.40); White Blood Cell (WBC) Count 9.6 10x3/uL (4.8-10.8)
[2022-01-20] MEDS: Levothyroxine Sodium 50 MCG TAB PO SCH (05:37)
[2022-01-20] MEDS: HumaLOG 300 UNITS/3 ML VIAL SC PRN ×3 (05:39→21:19)
[2022-01-20 05:52] LABS: Anion Gap 13 mmol/L (10-20); BUN (Urea Nitrogen) 57 mg/dL (9.8-20.1); Calc. Creatinine Clearance 20 mL/min (70-130); Calcium 8.9 mg/dL (7.8-10.44); Carbon Dioxide 27 mmol/L (23-31); Chloride 99 mmol/L (98-107); Estimated GFR 21; Glucose 170 mg/dL (83-110); Potassium 4.3 mmol/L (3.5-5.1); Sodium 135 mmol/L (136-145)
[2022-01-20] MEDS: Polyethylene Glycol 3350 17 GM Packet PO SCH (08:13)
[2022-01-20] MEDS: Aspirin 81 mg Enteric Coated Tablet PO SCH (08:14)
[2022-01-20] MEDS: Allopurinol 100 MG TAB PO SCH (08:14)
[2022-01-20] MEDS: Carvedilol 3.125 MG TAB PO SCH ×2 (08:14→20:54)
[2022-01-20] MEDS: Furosemide 40 MG TAB PO SCH ×2 (08:14→14:19)
[2022-01-20] MEDS: Potassium Chloride 20 MEQ TAB PO SCH (08:14)
[2022-01-20] MEDS: Lantus 1000 UNITS/10 ML VIAL SC SCH (08:15)
[2022-01-20] MEDS: Famotidine 20 MG TAB PO SCH (20:53)
[2022-01-20] MEDS: Rosuvastatin 10 MG TAB PO SCH (20:54)
[2022-01-21] MEDS: Acetaminophen 325 MG TAB PO SCH ×4 (03:38→20:45)
[2022-01-21] MEDS: Levothyroxine Sodium 50 MCG TAB PO SCH (05:18)
[2022-01-21] MEDS: Heparin 5,000 UNITS/ML VIAL SC SCH ×2 (08:44→20:35)
[2022-01-21] MEDS: Polyethylene Glycol 3350 17 GM Packet PO SCH (08:45)
[2022-01-21] MEDS: Potassium Chloride 20 MEQ TAB PO SCH (08:46)
[2022-01-21] MEDS: Aspirin 81 mg Enteric Coated Tablet PO SCH (08:46)
[2022-01-21] MEDS: Carvedilol 3.125 MG TAB PO SCH ×2 (08:47→20:44)
[2022-01-21] MEDS: Lantus 1000 UNITS/10 ML VIAL SC SCH (08:47)
[2022-01-21] MEDS: Furosemide 40 MG TAB PO SCH ×2 (08:47→14:10)
[2022-01-21] MEDS: Allopurinol 100 MG TAB PO SCH (08:47)
[2022-01-21] MEDS: Acetaminophen/Codeine 30-300mg Tablet PO PRN (11:14)
[2022-01-21] MEDS: HumaLOG 300 UNITS/3 ML VIAL SC PRN ×3 (11:36→20:59)
[2022-01-21] MEDS: Famotidine 20 MG TAB PO SCH (20:42)
[2022-01-21] MEDS: Rosuvastatin 10 MG TAB PO SCH (20:44)
[2022-01-22] MEDS: Acetaminophen 325 MG TAB PO SCH ×4 (02:31→20:29)
[2022-01-22 05:17] LABS: #Basophils 0.1 thou/uL (0.0-0.2); #Eosinphils 0.1 thou/uL (0.0-0.7); #Lymphocytes 1.6 thou/uL (1.20-3.40); #Monocytes 0.7 thou/uL (0.11-0.59); #Neutrophils 8.5 thou/uL (1.40-6.50); %Basophils 0.5 % (0.0-1.0); %Eosinophils 1.2 % (0.0-10.0); %Lymphocytes 14.9 % (21.0-51.0); %Monocytes 6.1 % (0.0-10.0); %Neutrophils 77.2 % (42.0-75.0); Hemoglobin 8.5 g/dL (12.0-16.0); Mean Corpuscular HGB CONC 33.1 g/dL (32.0-36.0); Mean Corpuscular Hemoglobin 33.3 pg (27.0-31.0); Mean Platelet Volume 6.5 fL (7.4-10.4); Platelet Count 151 10x3/uL (130-400); Red Blood Cell (RBC) Count 2.56 mill/uL (4.20-5.40)
[2022-01-22 05:27] LABS: Sodium 136 mmol/L (136-145)
[2022-01-22 05:31] LABS: Anion Gap 11 mmol/L (10-20); BUN (Urea Nitrogen) 61 mg/dL (9.8-20.1); Calc. Creatinine Clearance 19 mL/min (70-130); Calcium 8.8 mg/dL (7.8-10.44); Carbon Dioxide 30 mmol/L (23-31); Chloride 99 mmol/L (98-107); Estimated GFR 20; Glucose 140 mg/dL (83-110); Potassium 4.4 mmol/L (3.5-5.1)
[2022-01-22] MEDS: Levothyroxine Sodium 50 MCG TAB PO SCH (05:38)
[2022-01-22] MEDS: Carvedilol 3.125 MG TAB PO SCH ×2 (07:52→20:21)
[2022-01-22] MEDS: Potassium Chloride 20 MEQ TAB PO SCH (07:52)
[2022-01-22] MEDS: Aspirin 81 mg Enteric Coated Tablet PO SCH (07:52)
[2022-01-22] MEDS: Furosemide 40 MG TAB PO SCH ×2 (07:53→14:13)
[2022-01-22] MEDS: glipiZIDE 5 MG TAB PO SCH ×2 (07:53→16:45)
[2022-01-22] MEDS: Heparin 5,000 UNITS/ML VIAL SC SCH ×2 (07:56→20:21)
[2022-01-22] MEDS: Allopurinol 100 MG TAB PO SCH (07:56)
[2022-01-22] MEDS: Lantus 1000 UNITS/10 ML VIAL SC SCH (07:57)
[2022-01-22] MEDS: Polyethylene Glycol 3350 17 GM Packet PO SCH (07:57)
[2022-01-22] MEDS: Acetaminophen/Codeine 30-300mg Tablet PO PRN (09:51)
[2022-01-22] MEDS: HumaLOG 300 UNITS/3 ML VIAL SC PRN (12:33)
[2022-01-22] MEDS: Rosuvastatin 10 MG TAB PO SCH (20:21)
[2022-01-22] MEDS: Famotidine 20 MG TAB PO SCH (20:21)
[2022-01-23] MEDS: Acetaminophen 325 MG TAB PO SCH ×4 (03:45→20:37)
[2022-01-23] MEDS: Levothyroxine Sodium 50 MCG TAB PO SCH (05:38)
[2022-01-23 06:25] LABS: #Basophils 0.1 thou/uL (0.0-0.2); #Eosinphils 0.1 thou/uL (0.0-0.7); #Lymphocytes 1.3 thou/uL (1.20-3.40); #Monocytes 0.5 thou/uL (0.11-0.59); #Neutrophils 6.1 thou/uL (1.40-6.50); %Basophils 0.8 % (0.0-1.0); %Eosinophils 1.7 % (0.0-10.0); %Lymphocytes 15.7 % (21.0-51.0); %Monocytes 5.8 % (0.0-10.0); %Neutrophils 76.1 % (42.0-75.0); Hemoglobin 8.7 g/dL (12.0-16.0); Mean Corpuscular HGB CONC 31.6 g/dL (32.0-36.0); Mean Corpuscular Hemoglobin 32.7 pg (27.0-31.0); Mean Platelet Volume 7.4 fL (7.4-10.4); Platelet Count 160 10x3/uL (130-400); RBC Distribution Width 16.7 % (11.5-14.5); Red Blood Cell (RBC) Count 2.65 mill/uL (4.20-5.40)
[2022-01-23 06:33] LABS: Anion Gap 13 mmol/L (10-20); BUN (Urea Nitrogen) 59 mg/dL (9.8-20.1); Calc. Creatinine Clearance 20 mL/min (70-130); Calcium 8.7 mg/dL (7.8-10.44); Carbon Dioxide 28 mmol/L (23-31); Chloride 100 mmol/L (98-107); Estimated GFR 21; Glucose 118 mg/dL (83-110); Potassium 4.1 mmol/L (3.5-5.1); Sodium 137 mmol/L (136-145)
[2022-01-23] MEDS: Aspirin 81 mg Enteric Coated Tablet PO SCH (07:57)
[2022-01-23] MEDS: Potassium Chloride 20 MEQ TAB PO SCH (07:57)
[2022-01-23] MEDS: Allopurinol 100 MG TAB PO SCH (07:58)
[2022-01-23] MEDS: glipiZIDE 5 MG TAB PO SCH ×2 (07:58→17:45)
[2022-01-23] MEDS: Furosemide 40 MG TAB PO SCH ×2 (07:58→14:47)
[2022-01-23] MEDS: Lantus 1000 UNITS/10 ML VIAL SC SCH (07:58)
[2022-01-23] MEDS: Carvedilol 3.125 MG TAB PO SCH ×2 (07:58→20:35)
[2022-01-23] MEDS: Heparin 5,000 UNITS/ML VIAL SC SCH ×2 (07:59→20:33)
[2022-01-23] MEDS: Polyethylene Glycol 3350 17 GM Packet PO SCH (08:03)
[2022-01-23] MEDS: Acetaminophen/Codeine 30-300mg Tablet PO PRN (08:07)
[2022-01-23] MEDS: HumaLOG 300 UNITS/3 ML VIAL SC PRN ×2 (12:40→17:46)
[2022-01-23] MEDS: Famotidine 20 MG TAB PO SCH (20:35)
[2022-01-23] MEDS: Rosuvastatin 10 MG TAB PO SCH (20:35)
[2022-01-24] MEDS: Acetaminophen 325 MG TAB PO SCH ×4 (06:00→20:33)
[2022-01-24] MEDS: Levothyroxine Sodium 50 MCG TAB PO SCH (06:01)
[2022-01-24] MEDS: Carvedilol 3.125 MG TAB PO SCH ×2 (07:36→20:31)
[2022-01-24] MEDS: Heparin 5,000 UNITS/ML VIAL SC SCH ×2 (07:36→20:34)
[2022-01-24] MEDS: Potassium Chloride 20 MEQ TAB PO SCH (07:36)
[2022-01-24] MEDS: Furosemide 40 MG TAB PO SCH ×2 (07:37→14:11)
[2022-01-24] MEDS: Allopurinol 100 MG TAB PO SCH (07:37)
[2022-01-24] MEDS: glipiZIDE 5 MG TAB PO SCH ×2 (07:37→16:41)
[2022-01-24] MEDS: Aspirin 81 mg Enteric Coated Tablet PO SCH (07:37)
[2022-01-24] MEDS: Lantus 1000 UNITS/10 ML VIAL SC SCH (07:38)
[2022-01-24] MEDS: Polyethylene Glycol 3350 17 GM Packet PO SCH (07:38)
[2022-01-24] MEDS: Acetaminophen/Codeine 30-300mg Tablet PO PRN (10:52)
[2022-01-24] MEDS: HumaLOG 300 UNITS/3 ML VIAL SC PRN ×2 (11:30→16:41)
[2022-01-24] MEDS: Rosuvastatin 10 MG TAB PO SCH (20:30)
[2022-01-24] MEDS: Famotidine 20 MG TAB PO SCH (20:30)
[2022-01-25] MEDS: Acetaminophen 325 MG TAB PO SCH ×4 (03:00→20:23)
[2022-01-25] MEDS: Levothyroxine Sodium 50 MCG TAB PO SCH (05:18)
[2022-01-25] MEDS: Aspirin 81 mg Enteric Coated Tablet PO SCH (07:35)
[2022-01-25] MEDS: Carvedilol 3.125 MG TAB PO SCH ×2 (07:43→20:08)
[2022-01-25] MEDS: Furosemide 40 MG TAB PO SCH ×2 (07:44→13:14)
[2022-01-25] MEDS: Potassium Chloride 20 MEQ TAB PO SCH (07:44)
[2022-01-25] MEDS: Allopurinol 100 MG TAB PO SCH (07:44)
[2022-01-25] MEDS: glipiZIDE 5 MG TAB PO SCH ×2 (07:45→16:11)
[2022-01-25] MEDS: Polyethylene Glycol 3350 17 GM Packet PO SCH (07:46)
[2022-01-25] MEDS: Lantus 1000 UNITS/10 ML VIAL SC SCH (07:47)
[2022-01-25] MEDS: Heparin 5,000 UNITS/ML VIAL SC SCH ×2 (08:10→20:10)
[2022-01-25] MEDS: HumaLOG 300 UNITS/3 ML VIAL SC PRN ×3 (11:39→20:50)
[2022-01-25] MEDS: Acetaminophen/Codeine 30-300mg Tablet PO PRN (13:14)
[2022-01-25] MEDS: Famotidine 20 MG TAB PO SCH (20:08)
[2022-01-25] MEDS: Rosuvastatin 10 MG TAB PO SCH (20:08)
[2022-01-26] MEDS: Acetaminophen 325 MG TAB PO SCH ×4 (03:00→21:21)
[2022-01-26] MEDS: HumaLOG 300 UNITS/3 ML VIAL SC PRN ×3 (05:23→21:19)
[2022-01-26] MEDS: Levothyroxine Sodium 50 MCG TAB PO SCH (05:23)
[2022-01-26 06:33] LABS: #Basophils 0.1 thou/uL (0.0-0.2); #Eosinphils 0.1 thou/uL (0.0-0.7); #Monocytes 0.4 thou/uL (0.11-0.59); %Basophils 1.1 % (0.0-1.0); %Eosinophils 1.6 % (0.0-10.0); %Lymphocytes 15.5 % (21.0-51.0); %Monocytes 5.5 % (0.0-10.0); %Neutrophils 76.3 % (42.0-75.0); Hemoglobin 8.8 g/dL (12.0-16.0); Mean Corpuscular HGB CONC 31.4 g/dL (32.0-36.0); Mean Corpuscular Hemoglobin 33.4 pg (27.0-31.0); Mean Platelet Volume 7.4 fL (7.4-10.4); Platelet Count 181 10x3/uL (130-400); RBC Distribution Width 17.9 % (11.5-14.5); Red Blood Cell (RBC) Count 2.64 mill/uL (4.20-5.40); White Blood Cell (WBC) Count 6.5 10x3/uL (4.8-10.8)
[2022-01-26 06:39] LABS: Anion Gap 14 mmol/L (10-20); BUN (Urea Nitrogen) 66 mg/dL (9.8-20.1); Calc. Creatinine Clearance 17 mL/min (70-130); Calcium 9.1 mg/dL (7.8-10.44); Carbon Dioxide 26 mmol/L (23-31); Chloride 100 mmol/L (98-107); Estimated GFR 17; Glucose 162 mg/dL (83-110); Potassium 4.1 mmol/L (3.5-5.1); Sodium 136 mmol/L (136-145)
[2022-01-26] MEDS: Potassium Chloride 20 MEQ TAB PO SCH (07:37)
[2022-01-26] MEDS: Heparin 5,000 UNITS/ML VIAL SC SCH ×2 (07:37→21:18)
[2022-01-26] MEDS: glipiZIDE 5 MG TAB PO SCH ×2 (07:37→16:49)
[2022-01-26] MEDS: Aspirin 81 mg Enteric Coated Tablet PO SCH (07:38)
[2022-01-26] MEDS: Furosemide 40 MG TAB PO SCH ×2 (07:38→14:34)
[2022-01-26] MEDS: Carvedilol 3.125 MG TAB PO SCH ×2 (07:38→21:18)
[2022-01-26] MEDS: Allopurinol 100 MG TAB PO SCH (07:38)
[2022-01-26] MEDS: Lantus 1000 UNITS/10 ML VIAL SC SCH (07:39)
[2022-01-26] MEDS: Polyethylene Glycol 3350 17 GM Packet PO SCH (07:40)
[2022-01-26] MEDS: Acetaminophen/Codeine 30-300mg Tablet PO PRN (10:36)
[2022-01-26] MEDS: Rosuvastatin 10 MG TAB PO SCH (21:18)
[2022-01-26] MEDS: Famotidine 20 MG TAB PO SCH (21:18)
[2022-01-27] MEDS: Acetaminophen 325 MG TAB PO SCH ×4 (03:42→19:25)
[2022-01-27] MEDS: Levothyroxine Sodium 50 MCG TAB PO SCH (05:55)
[2022-01-27] MEDS: Lantus 1000 UNITS/10 ML VIAL SC SCH (08:37)
[2022-01-27] MEDS: Acetaminophen/Codeine 30-300mg Tablet PO PRN (08:38)
[2022-01-27] MEDS: Polyethylene Glycol 3350 17 GM Packet PO SCH (08:38)
[2022-01-27] MEDS: Allopurinol 100 MG TAB PO SCH (08:40)
[2022-01-27] MEDS: Aspirin 81 mg Enteric Coated Tablet PO SCH (08:40)
[2022-01-27] MEDS: Carvedilol 3.125 MG TAB PO SCH ×2 (08:40→21:16)
[2022-01-27] MEDS: Potassium Chloride 20 MEQ TAB PO SCH (08:40)
[2022-01-27] MEDS: Furosemide 40 MG TAB PO SCH ×2 (08:40→14:10)
[2022-01-27] MEDS: glipiZIDE 5 MG TAB PO SCH ×2 (08:40→17:38)
[2022-01-27] MEDS: Heparin 5,000 UNITS/ML VIAL SC SCH ×2 (08:41→21:15)
[2022-01-27] MEDS: HumaLOG 300 UNITS/3 ML VIAL SC PRN ×2 (11:53→17:38)
[2022-01-27] MEDS: Famotidine 20 MG TAB PO SCH (21:16)
[2022-01-27] MEDS: Rosuvastatin 10 MG TAB PO SCH (21:16)
[2022-01-28] MEDS: Acetaminophen 325 MG TAB PO SCH ×5 (01:26→23:36)
[2022-01-28] MEDS: Levothyroxine Sodium 50 MCG TAB PO SCH (06:19)
[2022-01-28] MEDS: Heparin 5,000 UNITS/ML VIAL SC SCH ×2 (08:57→20:56)
[2022-01-28] MEDS: Polyethylene Glycol 3350 17 GM Packet PO SCH (08:58)
[2022-01-28] MEDS: Allopurinol 100 MG TAB PO SCH (08:59)
[2022-01-28] MEDS: Potassium Chloride 20 MEQ TAB PO SCH (08:59)
[2022-01-28] MEDS: Furosemide 40 MG TAB PO SCH ×2 (08:59→17:30)
[2022-01-28] MEDS: Aspirin 81 mg Enteric Coated Tablet PO SCH (08:59)
[2022-01-28] MEDS: Carvedilol 3.125 MG TAB PO SCH ×2 (10:42→20:50)
[2022-01-28] MEDS: Lantus 1000 UNITS/10 ML VIAL SC SCH (10:42)
[2022-01-28] MEDS: glipiZIDE 5 MG TAB PO SCH (10:42)
[2022-01-28] MEDS: HumaLOG 300 UNITS/3 ML VIAL SC PRN ×2 (12:06→20:54)
[2022-01-28] MEDS: Rosuvastatin 10 MG TAB PO SCH (20:50)
[2022-01-28] MEDS: Famotidine 20 MG TAB PO SCH (20:50)
[2022-01-29 05:36] LABS: #Basophils 0.1 thou/uL (0.0-0.2); #Eosinphils 0.1 thou/uL (0.0-0.7); #Lymphocytes 0.8 thou/uL (1.20-3.40); #Monocytes 0.5 thou/uL (0.11-0.59); #Neutrophils 4.9 thou/uL (1.40-6.50); %Basophils 1.1 % (0.0-1.0); %Eosinophils 1.7 % (0.0-10.0); %Lymphocytes 12.4 % (21.0-51.0); %Monocytes 7.4 % (0.0-10.0); %Neutrophils 77.4 % (42.0-75.0); Hemoglobin 9.2 g/dL (12.0-16.0); Mean Corpuscular HGB CONC 32.2 g/dL (32.0-36.0); Mean Corpuscular Hemoglobin 33.9 pg (27.0-31.0); Mean Platelet Volume 7.2 fL (7.4-10.4); Platelet Count 224 10x3/uL (130-400); RBC Distribution Width 17.6 % (11.5-14.5); Red Blood Cell (RBC) Count 2.72 mill/uL (4.20-5.40); White Blood Cell (WBC) Count 6.3 10x3/uL (4.8-10.8)
[2022-01-29 05:49] LABS: Anion Gap 15 mmol/L (10-20); BUN (Urea Nitrogen) 67 mg/dL (9.8-20.1); Calc. Creatinine Clearance 18 mL/min (70-130); Calcium 9.4 mg/dL (7.8-10.44); Carbon Dioxide 28 mmol/L (23-31); Chloride 97 mmol/L (98-107); Estimated GFR 19; Glucose 127 mg/dL (83-110); Sodium 136 mmol/L (136-145)
[2022-01-29] MEDS: Levothyroxine Sodium 50 MCG TAB PO SCH (05:58)
[2022-01-29] MEDS: Acetaminophen 325 MG TAB PO SCH ×3 (05:58→17:24)
[2022-01-29] MEDS: glipiZIDE 5 MG TAB PO SCH ×3 (07:25→20:01)
[2022-01-29] MEDS: Furosemide 40 MG TAB PO SCH ×2 (09:19→14:20)
[2022-01-29] MEDS: Potassium Chloride 20 MEQ TAB PO SCH (09:19)
[2022-01-29] MEDS: Aspirin 81 mg Enteric Coated Tablet PO SCH (09:19)
[2022-01-29] MEDS: Allopurinol 100 MG TAB PO SCH (09:21)
[2022-01-29] MEDS: Polyethylene Glycol 3350 17 GM Packet PO SCH (09:22)
[2022-01-29] MEDS: Lantus 1000 UNITS/10 ML VIAL SC SCH (09:23)
[2022-01-29] MEDS: Carvedilol 3.125 MG TAB PO SCH ×2 (09:25→20:50)
[2022-01-29] MEDS: Heparin 5,000 UNITS/ML VIAL SC SCH ×2 (09:30→20:49)
[2022-01-29] MEDS: HumaLOG 300 UNITS/3 ML VIAL SC PRN ×2 (12:47→20:50)
[2022-01-29] MEDS: Acetaminophen/Codeine 30-300mg Tablet PO PRN (20:48)
[2022-01-29] MEDS: Rosuvastatin 10 MG TAB PO SCH (20:48)
[2022-01-29] MEDS: Famotidine 20 MG TAB PO SCH (20:49)
[2022-01-30] MEDS: Acetaminophen 325 MG TAB PO SCH ×5 (00:04→23:42)
[2022-01-30] MEDS: Levothyroxine Sodium 50 MCG TAB PO SCH (06:20)
[2022-01-30] MEDS: Heparin 5,000 UNITS/ML VIAL SC SCH ×2 (09:03→21:22)
[2022-01-30] MEDS: Potassium Chloride 20 MEQ TAB PO SCH (09:03)
[2022-01-30] MEDS: Allopurinol 100 MG TAB PO SCH (09:03)
[2022-01-30] MEDS: glipiZIDE 5 MG TAB PO SCH ×2 (09:03→17:22)
[2022-01-30] MEDS: Furosemide 40 MG TAB PO SCH ×2 (09:03→15:07)
[2022-01-30] MEDS: Aspirin 81 mg Enteric Coated Tablet PO SCH (09:03)
[2022-01-30] MEDS: Carvedilol 3.125 MG TAB PO SCH ×2 (09:03→21:17)
[2022-01-30] MEDS: Lantus 1000 UNITS/10 ML VIAL SC SCH (09:04)
[2022-01-30] MEDS: Polyethylene Glycol 3350 17 GM Packet PO SCH (10:18)
[2022-01-30] MEDS: HumaLOG 300 UNITS/3 ML VIAL SC PRN ×2 (12:09→21:18)
[2022-01-30] MEDS: Acetaminophen/Codeine 30-300mg Tablet PO PRN (15:09)
[2022-01-30] MEDS: Famotidine 20 MG TAB PO SCH (21:17)
[2022-01-30] MEDS: Rosuvastatin 10 MG TAB PO SCH (21:17)
[2022-01-31] MEDS: Acetaminophen 325 MG TAB PO SCH ×3 (05:38→17:02)
[2022-01-31] MEDS: Levothyroxine Sodium 50 MCG TAB PO SCH (05:39)
[2022-01-31] MEDS: Carvedilol 3.125 MG TAB PO SCH ×2 (08:15→21:19)
[2022-01-31] MEDS: Allopurinol 100 MG TAB PO SCH (08:15)
[2022-01-31] MEDS: Potassium Chloride 20 MEQ TAB PO SCH (08:15)
[2022-01-31] MEDS: Aspirin 81 mg Enteric Coated Tablet PO SCH (08:15)
[2022-01-31] MEDS: Furosemide 40 MG TAB PO SCH ×2 (08:15→13:49)
[2022-01-31] MEDS: Polyethylene Glycol 3350 17 GM Packet PO SCH (08:15)
[2022-01-31] MEDS: Lantus 1000 UNITS/10 ML VIAL SC SCH (08:16)
[2022-01-31] MEDS: Heparin 5,000 UNITS/ML VIAL SC SCH ×2 (08:26→21:19)
[2022-01-31] MEDS: Acetaminophen/Codeine 30-300mg Tablet PO PRN (08:40)
[2022-01-31] MEDS: HumaLOG 300 UNITS/3 ML VIAL SC PRN ×3 (12:03→22:13)
[2022-01-31] MEDS: Rosuvastatin 10 MG TAB PO SCH (21:20)
[2022-01-31] MEDS: Famotidine 20 MG TAB PO SCH (21:20)
[2022-02-01] MEDS: Acetaminophen 325 MG TAB PO SCH ×4 (00:11→18:07)
[2022-02-01] MEDS: Levothyroxine Sodium 50 MCG TAB PO SCH (05:49)
[2022-02-01] MEDS: Potassium Chloride 20 MEQ TAB PO SCH (08:20)
[2022-02-01] MEDS: Lantus 1000 UNITS/10 ML VIAL SC SCH (09:17)
[2022-02-01] MEDS: Polyethylene Glycol 3350 17 GM Packet PO SCH (09:18)
[2022-02-01] MEDS: Carvedilol 3.125 MG TAB PO SCH ×2 (09:19→20:11)
[2022-02-01] MEDS: Allopurinol 100 MG TAB PO SCH (09:20)
[2022-02-01] MEDS: Furosemide 40 MG TAB PO SCH ×2 (09:20→14:12)
[2022-02-01] MEDS: Aspirin 81 mg Enteric Coated Tablet PO SCH (09:20)
[2022-02-01] MEDS: Heparin 5,000 UNITS/ML VIAL SC SCH ×2 (09:26→20:10)
[2022-02-01] MEDS: HumaLOG 300 UNITS/3 ML VIAL SC PRN ×2 (12:25→20:36)
[2022-02-01] MEDS: Famotidine 20 MG TAB PO SCH (20:11)
[2022-02-01] MEDS: Rosuvastatin 10 MG TAB PO SCH (20:11)
[2022-02-02] MEDS: Acetaminophen 325 MG TAB PO SCH ×5 (00:39→23:53)
[2022-02-02] MEDS: Levothyroxine Sodium 50 MCG TAB PO SCH (05:54)
[2022-02-02] MEDS: Carvedilol 3.125 MG TAB PO SCH ×2 (08:52→20:13)
[2022-02-02] MEDS: Allopurinol 100 MG TAB PO SCH (08:52)
[2022-02-02] MEDS: Aspirin 81 mg Enteric Coated Tablet PO SCH (08:52)
[2022-02-02] MEDS: Potassium Chloride 20 MEQ TAB PO SCH (08:52)
[2022-02-02] MEDS: Furosemide 40 MG TAB PO SCH ×2 (08:52→14:12)
[2022-02-02] MEDS: Lantus 1000 UNITS/10 ML VIAL SC SCH (08:54)
[2022-02-02] MEDS: Heparin 5,000 UNITS/ML VIAL SC SCH ×2 (08:56→20:14)
[2022-02-02] MEDS: Polyethylene Glycol 3350 17 GM Packet PO SCH (08:59)
[2022-02-02] MEDS: Famotidine 20 MG TAB PO SCH (20:13)
[2022-02-02] MEDS: Rosuvastatin 10 MG TAB PO SCH (20:13)
[2022-02-03] MEDS: Acetaminophen 325 MG TAB PO SCH ×3 (05:20→17:44)
[2022-02-03] MEDS: Levothyroxine Sodium 50 MCG TAB PO SCH (05:20)
[2022-02-03] MEDS: Furosemide 40 MG TAB PO SCH ×2 (08:52→13:57)
[2022-02-03] MEDS: Carvedilol 3.125 MG TAB PO SCH ×2 (08:52→20:12)
[2022-02-03] MEDS: Potassium Chloride 20 MEQ TAB PO SCH (08:52)
[2022-02-03] MEDS: Allopurinol 100 MG TAB PO SCH (08:53)
[2022-02-03] MEDS: Aspirin 81 mg Enteric Coated Tablet PO SCH (08:53)
[2022-02-03] MEDS: Polyethylene Glycol 3350 17 GM Packet PO SCH (08:54)
[2022-02-03] MEDS: Heparin 5,000 UNITS/ML VIAL SC SCH ×2 (09:57→20:13)
[2022-02-03] MEDS: HumaLOG 300 UNITS/3 ML VIAL SC PRN (13:08)
[2022-02-03] MEDS: Famotidine 20 MG TAB PO SCH (20:12)
[2022-02-03] MEDS: Rosuvastatin 10 MG TAB PO SCH (20:13)
[2022-02-04] MEDS: Acetaminophen 325 MG TAB PO SCH ×4 (01:02→17:18)
[2022-02-04 05:46] LABS: #Basophils 0.1 thou/uL (0.0-0.2); #Eosinphils 0.1 thou/uL (0.0-0.7); #Lymphocytes 1.3 thou/uL (1.20-3.40); #Monocytes 0.4 thou/uL (0.11-0.59); #Neutrophils 2.2 thou/uL (1.40-6.50); %Basophils 1.6 % (0.0-1.0); %Eosinophils 2.4 % (0.0-10.0); %Lymphocytes 31.4 % (21.0-51.0); %Monocytes 9.7 % (0.0-10.0); %Neutrophils 54.9 % (42.0-75.0); Hemoglobin 9.1 g/dL (12.0-16.0); Mean Corpuscular Hemoglobin 33.4 pg (27.0-31.0); Mean Platelet Volume 7.4 fL (7.4-10.4); Platelet Count 197 10x3/uL (130-400); RBC Distribution Width 16.4 % (11.5-14.5); Red Blood Cell (RBC) Count 2.71 mill/uL (4.20-5.40)
[2022-02-04 05:54] LABS: Carbon Dioxide 27 mmol/L (23-31); Glucose 132 mg/dL (83-110); Sodium 137 mmol/L (136-145)
[2022-02-04 05:56] LABS: Anion Gap 13 mmol/L (10-20); BUN (Urea Nitrogen) 73 mg/dL (9.8-20.1); Calc. Creatinine Clearance 17 mL/min (70-130); Calcium 9.3 mg/dL (7.8-10.44); Chloride 101 mmol/L (98-107); Estimated GFR 18; Potassium 4.1 mmol/L (3.5-5.1)
[2022-02-04] MEDS: Levothyroxine Sodium 50 MCG TAB PO SCH (07:02)
[2022-02-04] MEDS ORDERED: Lantus 1000 UNITS/10 ML VIAL SC SCH ×2 (09:00)
[2022-02-04] MEDS: Polyethylene Glycol 3350 17 GM Packet PO SCH (09:32)
[2022-02-04] MEDS: Lantus 1000 UNITS/10 ML VIAL SC SCH (09:33)
[2022-02-04] MEDS: Furosemide 40 MG TAB PO SCH ×2 (09:35→14:49)
[2022-02-04] MEDS: Carvedilol 3.125 MG TAB PO SCH ×2 (09:35→21:33)
[2022-02-04] MEDS: Allopurinol 100 MG TAB PO SCH (09:35)
[2022-02-04] MEDS: Potassium Chloride 20 MEQ TAB PO SCH (09:35)
[2022-02-04] MEDS: Aspirin 81 mg Enteric Coated Tablet PO SCH (09:36)
[2022-02-04] MEDS: Heparin 5,000 UNITS/ML VIAL SC SCH ×2 (09:38→21:33)
[2022-02-04] MEDS: HumaLOG 300 UNITS/3 ML VIAL SC PRN ×2 (12:54→17:20)
[2022-02-04 20:18] LABS: Bilirubin Negative (Negative); Blood, Urine Negative (Negative); CAUTI Indications for Culture Alt mental st,lethar; Clarity Clear (Clear); Glucose, Urine (Dipstick) Negative (Negative); Ketone, Urine Negative (Negative); Leukocyte Negative (Negative); Nitrite Negative (Negative); Protein, Urine (Dipstick) Negative (Neg-Trace); Urobilinogen 0.2 mg/dL (Less than 2); pH, Urine 5.5 (5.0-9.0)
[2022-02-04 20:19] LABS: Specific Gravity, Urine 1.009 (1.002-1.036)
[2022-02-04 20:20] LABS: Urine Culture Reflex No No
[2022-02-04 20:21] LABS: Bacteria/HPF Rare-Few HPF (None Seen); RBC/HPF 0-3 HPF (0-3); Squamous Epithelial 0-3 HPF (0-3); WBC/HPF 0-3 HPF (0-3)
[2022-02-04] MEDS: Famotidine 20 MG TAB PO SCH (21:33)
[2022-02-04] MEDS: Rosuvastatin 10 MG TAB PO SCH (21:33)
[2022-02-05] MEDS: Acetaminophen 325 MG TAB PO SCH ×4 (00:02→17:20)
[2022-02-05] MEDS: Levothyroxine Sodium 50 MCG TAB PO SCH (05:46)
[2022-02-05] MEDS: Aspirin 81 mg Enteric Coated Tablet PO SCH (08:52)
[2022-02-05] MEDS: Allopurinol 100 MG TAB PO SCH (08:52)
[2022-02-05] MEDS: Furosemide 40 MG TAB PO SCH ×2 (08:52→15:43)
[2022-02-05] MEDS: Lantus 1000 UNITS/10 ML VIAL SC SCH ×2 (08:53→11:04)
[2022-02-05] MEDS: Polyethylene Glycol 3350 17 GM Packet PO SCH (08:53)
[2022-02-05] MEDS: Potassium Chloride 20 MEQ TAB PO SCH (08:54)
[2022-02-05] MEDS: Carvedilol 3.125 MG TAB PO SCH ×2 (08:55→22:14)
[2022-02-05] MEDS: Heparin 5,000 UNITS/ML VIAL SC SCH ×2 (08:59→22:14)
[2022-02-05] MEDS: Acetaminophen/Codeine 30-300mg Tablet PO PRN (11:09)
[2022-02-05] MEDS: HumaLOG 300 UNITS/3 ML VIAL SC PRN ×2 (12:51→22:14)
[2022-02-05] MEDS: Famotidine 20 MG TAB PO SCH (22:13)
[2022-02-05] MEDS: Rosuvastatin 10 MG TAB PO SCH (22:13)
[2022-02-06] MEDS: Acetaminophen 325 MG TAB PO SCH ×4 (00:22→16:24)
[2022-02-06] MEDS: Acetaminophen/Codeine 30-300mg Tablet PO PRN (03:43)
[2022-02-06] MEDS: Levothyroxine Sodium 50 MCG TAB PO SCH (06:33)
[2022-02-06] MEDS ORDERED: Heparin 5,000 UNITS/ML VIAL ONE (08:09)
[2022-02-06] MEDS: Polyethylene Glycol 3350 17 GM Packet PO SCH (08:14)
[2022-02-06] MEDS: Potassium Chloride 20 MEQ TAB PO SCH (08:15)
[2022-02-06] MEDS: Aspirin 81 mg Enteric Coated Tablet PO SCH (08:15)
[2022-02-06] MEDS: Carvedilol 3.125 MG TAB PO SCH ×2 (08:15→21:11)
[2022-02-06] MEDS: Allopurinol 100 MG TAB PO SCH (08:16)
[2022-02-06] MEDS: Furosemide 40 MG TAB PO SCH ×2 (08:16→14:39)
[2022-02-06] MEDS: Lantus 1000 UNITS/10 ML VIAL SC SCH (08:18)
[2022-02-06] MEDS: Heparin 5,000 UNITS/ML VIAL SC SCH ×2 (08:24→21:11)
[2022-02-06] MEDS: HumaLOG 300 UNITS/3 ML VIAL SC PRN ×2 (12:02→16:31)
[2022-02-06] MEDS: Famotidine 20 MG TAB PO SCH (21:11)
[2022-02-06] MEDS: Rosuvastatin 10 MG TAB PO SCH (21:11)
[2022-02-07] MEDS: Acetaminophen 325 MG TAB PO SCH ×5 (00:12→23:42)
[2022-02-07] MEDS: Levothyroxine Sodium 50 MCG TAB PO SCH (06:07)
[2022-02-07] MEDS: Polyethylene Glycol 3350 17 GM Packet PO SCH (08:03)
[2022-02-07] MEDS: Potassium Chloride 20 MEQ TAB PO SCH (08:05)
[2022-02-07] MEDS: Allopurinol 100 MG TAB PO SCH (08:05)
[2022-02-07] MEDS: Aspirin 81 mg Enteric Coated Tablet PO SCH (08:05)
[2022-02-07] MEDS: Furosemide 40 MG TAB PO SCH ×2 (08:05→13:58)
[2022-02-07] MEDS: Carvedilol 3.125 MG TAB PO SCH ×2 (08:05→21:33)
[2022-02-07] MEDS: Lantus 1000 UNITS/10 ML VIAL SC SCH (08:07)
[2022-02-07] MEDS: Heparin 5,000 UNITS/ML VIAL SC SCH ×2 (08:10→21:37)
[2022-02-07] MEDS: HumaLOG 300 UNITS/3 ML VIAL SC PRN ×2 (12:16→17:12)
[2022-02-07] MEDS: Rosuvastatin 10 MG TAB PO SCH (21:33)
[2022-02-07] MEDS: Famotidine 20 MG TAB PO SCH (21:33)
[2022-02-08] MEDS: Levothyroxine Sodium 50 MCG TAB PO SCH (05:24)
[2022-02-08] MEDS: Acetaminophen 325 MG TAB PO SCH ×4 (05:24→23:25)
[2022-02-08] MEDS: Carvedilol 3.125 MG TAB PO SCH ×2 (08:28→20:32)
[2022-02-08] MEDS: Aspirin 81 mg Enteric Coated Tablet PO SCH (08:28)
[2022-02-08] MEDS: Allopurinol 100 MG TAB PO SCH (08:28)
[2022-02-08] MEDS: Furosemide 40 MG TAB PO SCH ×2 (08:28→13:46)
[2022-02-08] MEDS: Potassium Chloride 20 MEQ TAB PO SCH (08:29)
[2022-02-08] MEDS: Lantus 1000 UNITS/10 ML VIAL SC SCH (08:32)
[2022-02-08] MEDS: Heparin 5,000 UNITS/ML VIAL SC SCH ×2 (08:34→20:32)
[2022-02-08] MEDS: Polyethylene Glycol 3350 17 GM Packet PO SCH (08:37)
[2022-02-08] MEDS: HumaLOG 300 UNITS/3 ML VIAL SC PRN (12:11)
[2022-02-08] MEDS: Acetaminophen/Codeine 30-300mg Tablet PO PRN (15:22)
[2022-02-08] MEDS: Rosuvastatin 10 MG TAB PO SCH (20:33)
[2022-02-08] MEDS: Famotidine 20 MG TAB PO SCH (20:33)
[2022-02-09] MEDS: Levothyroxine Sodium 50 MCG TAB PO SCH (05:40)
[2022-02-09] MEDS: Acetaminophen 325 MG TAB PO SCH ×4 (05:40→23:30)
[2022-02-09] MEDS: Polyethylene Glycol 3350 17 GM Packet PO SCH (09:05)
[2022-02-09] MEDS: Aspirin 81 mg Enteric Coated Tablet PO SCH (09:06)
[2022-02-09] MEDS: Furosemide 40 MG TAB PO SCH ×2 (09:06→14:35)
[2022-02-09] MEDS: Carvedilol 3.125 MG TAB PO SCH ×2 (09:06→20:57)
[2022-02-09] MEDS: Potassium Chloride 20 MEQ TAB PO SCH (09:06)
[2022-02-09] MEDS: Allopurinol 100 MG TAB PO SCH (09:06)
[2022-02-09] MEDS: Heparin 5,000 UNITS/ML VIAL SC SCH ×2 (09:10→20:57)
[2022-02-09] MEDS: Lantus 1000 UNITS/10 ML VIAL SC SCH (09:30)
[2022-02-09] MEDS: HumaLOG 300 UNITS/3 ML VIAL SC PRN ×2 (12:08→17:08)
[2022-02-09] MEDS: Famotidine 20 MG TAB PO SCH (20:57)
[2022-02-09] MEDS: Rosuvastatin 10 MG TAB PO SCH (20:57)
[2022-02-10] MEDS: Acetaminophen 325 MG TAB PO SCH ×3 (05:56→17:54)
[2022-02-10] MEDS: Levothyroxine Sodium 50 MCG TAB PO SCH (05:57)
[2022-02-10] MEDS: Lantus 1000 UNITS/10 ML VIAL SC SCH (08:32)
[2022-02-10] MEDS: Polyethylene Glycol 3350 17 GM Packet PO SCH (08:33)
[2022-02-10] MEDS: Aspirin 81 mg Enteric Coated Tablet PO SCH (08:33)
[2022-02-10] MEDS: Potassium Chloride 20 MEQ TAB PO SCH (08:34)
[2022-02-10] MEDS: Carvedilol 3.125 MG TAB PO SCH ×2 (08:34→21:10)
[2022-02-10] MEDS: Furosemide 40 MG TAB PO SCH ×2 (08:34→14:57)
[2022-02-10] MEDS: Allopurinol 100 MG TAB PO SCH (08:34)
[2022-02-10] MEDS: Heparin 5,000 UNITS/ML VIAL SC SCH ×2 (08:53→21:09)
[2022-02-10] MEDS: HumaLOG 300 UNITS/3 ML VIAL SC PRN ×2 (11:59→21:08)
[2022-02-10] MEDS: Rosuvastatin 10 MG TAB PO SCH (21:10)
[2022-02-10] MEDS: Famotidine 20 MG TAB PO SCH (21:10)
[2022-02-11] MEDS: Acetaminophen 325 MG TAB PO SCH ×4 (00:34→17:01)
[2022-02-11] MEDS: Levothyroxine Sodium 50 MCG TAB PO SCH (06:15)
[2022-02-11] MEDS: Carvedilol 3.125 MG TAB PO SCH ×2 (08:17→20:12)
[2022-02-11] MEDS: Aspirin 81 mg Enteric Coated Tablet PO SCH (08:17)
[2022-02-11] MEDS: Potassium Chloride 20 MEQ TAB PO SCH (08:17)
[2022-02-11] MEDS: Allopurinol 100 MG TAB PO SCH (08:17)
[2022-02-11] MEDS: Furosemide 40 MG TAB PO SCH ×2 (08:17→14:59)
[2022-02-11] MEDS: Polyethylene Glycol 3350 17 GM Packet PO SCH (08:17)
[2022-02-11] MEDS: Heparin 5,000 UNITS/ML VIAL SC SCH ×2 (08:21→20:13)
[2022-02-11] MEDS: Lantus 1000 UNITS/10 ML VIAL SC SCH (08:21)
[2022-02-11] MEDS: Rosuvastatin 10 MG TAB PO SCH (20:11)
[2022-02-11] MEDS: Famotidine 20 MG TAB PO SCH (20:12)
[2022-02-11] MEDS: HumaLOG 300 UNITS/3 ML VIAL SC PRN (21:09)
[2022-02-12] MEDS: Acetaminophen 325 MG TAB PO SCH ×5 (01:17→23:53)
[2022-02-12] MEDS: Levothyroxine Sodium 50 MCG TAB PO SCH (06:09)
[2022-02-12] MEDS: Allopurinol 100 MG TAB PO SCH (08:50)
[2022-02-12] MEDS: Carvedilol 3.125 MG TAB PO SCH ×2 (08:50→20:40)
[2022-02-12] MEDS: Aspirin 81 mg Enteric Coated Tablet PO SCH (08:50)
[2022-02-12] MEDS: Furosemide 40 MG TAB PO SCH ×2 (08:50→14:54)
[2022-02-12] MEDS: Potassium Chloride 20 MEQ TAB PO SCH (08:50)
[2022-02-12] MEDS: Heparin 5,000 UNITS/ML VIAL SC SCH ×2 (08:52→20:44)
[2022-02-12] MEDS: Lantus 1000 UNITS/10 ML VIAL SC SCH (08:52)
[2022-02-12] MEDS: Polyethylene Glycol 3350 17 GM Packet PO SCH (09:00)
[2022-02-12] MEDS: Rosuvastatin 10 MG TAB PO SCH (20:40)
[2022-02-12] MEDS: Famotidine 20 MG TAB PO SCH (20:40)
[2022-02-13] MEDS: Acetaminophen 325 MG TAB PO SCH ×4 (05:47→23:52)
[2022-02-13] MEDS: Levothyroxine Sodium 50 MCG TAB PO SCH (05:47)
[2022-02-13 06:00] LABS: #Basophils 0.1 thou/uL (0.0-0.2); #Eosinphils 0.1 thou/uL (0.0-0.7); #Lymphocytes 1.5 thou/uL (1.20-3.40); #Monocytes 0.6 thou/uL (0.11-0.59); #Neutrophils 3.2 thou/uL (1.40-6.50); %Basophils 1.4 % (0.0-1.0); %Eosinophils 1.6 % (0.0-10.0); %Lymphocytes 26.6 % (21.0-51.0); %Neutrophils 59.4 % (42.0-75.0); Hemoglobin 9.9 g/dL (12.0-16.0); Mean Corpuscular HGB CONC 32.1 g/dL (32.0-36.0); Mean Platelet Volume 7.5 fL (7.4-10.4); Platelet Count 135 10x3/uL (130-400); RBC Distribution Width 15.7 % (11.5-14.5); Red Blood Cell (RBC) Count 2.92 mill/uL (4.20-5.40); White Blood Cell (WBC) Count 5.4 10x3/uL (4.8-10.8)
[2022-02-13 06:13] LABS: Anion Gap 15 mmol/L (10-20); BUN (Urea Nitrogen) 69 mg/dL (9.8-20.1); Calc. Creatinine Clearance 16 mL/min (70-130); Calcium 9.4 mg/dL (7.8-10.44); Carbon Dioxide 26 mmol/L (23-31); Chloride 102 mmol/L (98-107); Estimated GFR 18; Glucose 101 mg/dL (83-110); Potassium 4.3 mmol/L (3.5-5.1); Sodium 139 mmol/L (136-145)
[2022-02-13] MEDS: Heparin 5,000 UNITS/ML VIAL SC SCH ×2 (09:21→20:47)
[2022-02-13] MEDS: Furosemide 40 MG TAB PO SCH ×2 (09:24→15:00)
[2022-02-13] MEDS: Polyethylene Glycol 3350 17 GM Packet PO SCH (09:24)
[2022-02-13] MEDS: Aspirin 81 mg Enteric Coated Tablet PO SCH (09:24)
[2022-02-13] MEDS: Lantus 1000 UNITS/10 ML VIAL SC SCH (09:27)
[2022-02-13] MEDS: Allopurinol 100 MG TAB PO SCH (09:28)
[2022-02-13] MEDS: Carvedilol 3.125 MG TAB PO SCH ×2 (09:28→20:47)
[2022-02-13] MEDS: Potassium Chloride 20 MEQ TAB PO SCH (09:28)
[2022-02-13] MEDS ORDERED: Lantus 1000 UNITS/10 ML VIAL SC SCH (14:00)
[2022-02-13] MEDS ORDERED: Acetaminophen 325 MG TAB ONE (17:14)
[2022-02-13] MEDS: Famotidine 20 MG TAB PO SCH (20:47)
[2022-02-13] MEDS: Rosuvastatin 10 MG TAB PO SCH (20:47)
[2022-02-14] MEDS: Acetaminophen 325 MG TAB PO SCH ×3 (05:47→17:25)
[2022-02-14] MEDS: Levothyroxine Sodium 50 MCG TAB PO SCH (05:48)
[2022-02-14] MEDS ORDERED: Lantus 1000 UNITS/10 ML VIAL SC SCH (09:00)
[2022-02-14] MEDS: Furosemide 40 MG TAB PO SCH ×2 (09:17→14:38)
[2022-02-14] MEDS: Carvedilol 3.125 MG TAB PO SCH ×2 (09:17→21:05)
[2022-02-14] MEDS: Allopurinol 100 MG TAB PO SCH (09:17)
[2022-02-14] MEDS: Aspirin 81 mg Enteric Coated Tablet PO SCH (09:17)
[2022-02-14] MEDS: Polyethylene Glycol 3350 17 GM Packet PO SCH (09:18)
[2022-02-14] MEDS: Potassium Chloride 20 MEQ TAB PO SCH (09:18)
[2022-02-14] MEDS: Heparin 5,000 UNITS/ML VIAL SC SCH ×2 (09:19→21:05)
[2022-02-14] MEDS: Famotidine 20 MG TAB PO SCH (21:05)
[2022-02-14] MEDS: Rosuvastatin 10 MG TAB PO SCH (21:05)
[2022-02-15] MEDS: Acetaminophen 325 MG TAB PO SCH ×4 (00:24→17:43)
[2022-02-15] MEDS: Levothyroxine Sodium 50 MCG TAB PO SCH (06:05)
[2022-02-15 06:20] LABS: #Basophils 0.1 thou/uL (0.0-0.2); #Lymphocytes 1.3 thou/uL (1.20-3.40); #Monocytes 0.5 thou/uL (0.11-0.59); #Neutrophils 3.9 thou/uL (1.40-6.50); %Basophils 1.3 % (0.0-1.0); %Eosinophils 0.4 % (0.0-10.0); %Lymphocytes 23.1 % (21.0-51.0); %Monocytes 8.5 % (0.0-10.0); %Neutrophils 66.7 % (42.0-75.0); Mean Corpuscular HGB CONC 30.9 g/dL (32.0-36.0); Mean Corpuscular Hemoglobin 33.2 pg (27.0-31.0); Mean Platelet Volume 7.5 fL (7.4-10.4); Platelet Count 137 10x3/uL (130-400); RBC Distribution Width 15.8 % (11.5-14.5); Red Blood Cell (RBC) Count 3.31 mill/uL (4.20-5.40); White Blood Cell (WBC) Count 5.8 10x3/uL (4.8-10.8)
[2022-02-15 06:33] LABS: Anion Gap 12 mmol/L (10-20); BUN (Urea Nitrogen) 76 mg/dL (9.8-20.1); Calc. Creatinine Clearance 13 mL/min (70-130); Calcium 10.2 mg/dL (7.8-10.44); Carbon Dioxide 26 mmol/L (23-31); Chloride 103 mmol/L (98-107); Estimated GFR 14; Glucose 155 mg/dL (83-110); Potassium 4.2 mmol/L (3.5-5.1); Sodium 137 mmol/L (136-145)
[2022-02-15] MEDS: Heparin 5,000 UNITS/ML VIAL SC SCH ×2 (09:05→20:45)
[2022-02-15] MEDS: Allopurinol 100 MG TAB PO SCH (09:06)
[2022-02-15] MEDS: Carvedilol 3.125 MG TAB PO SCH ×2 (09:06→20:45)
[2022-02-15] MEDS: Polyethylene Glycol 3350 17 GM Packet PO SCH (09:06)
[2022-02-15] MEDS: Potassium Chloride 20 MEQ TAB PO SCH (09:06)
[2022-02-15] MEDS: Aspirin 81 mg Enteric Coated Tablet PO SCH (09:06)
[2022-02-15] MEDS: Furosemide 40 MG TAB PO SCH ×2 (09:06→14:34)
[2022-02-15] MEDS: HumaLOG 300 UNITS/3 ML VIAL SC PRN (12:05)
[2022-02-15] MEDS: Famotidine 20 MG TAB PO SCH (20:45)
[2022-02-15] MEDS: Rosuvastatin 10 MG TAB PO SCH (20:45)
[2022-02-16] MEDS: Acetaminophen 325 MG TAB PO SCH ×4 (00:08→17:16)
[2022-02-16] MEDS: Levothyroxine Sodium 50 MCG TAB PO SCH (05:48)
[2022-02-16] MEDS: Potassium Chloride 20 MEQ TAB PO SCH (09:37)
[2022-02-16] MEDS: Heparin 5,000 UNITS/ML VIAL SC SCH ×2 (09:38→20:21)
[2022-02-16] MEDS: Furosemide 40 MG TAB PO SCH ×2 (09:38→15:01)
[2022-02-16] MEDS: Allopurinol 100 MG TAB PO SCH (09:38)
[2022-02-16] MEDS: Carvedilol 3.125 MG TAB PO SCH ×2 (09:38→20:20)
[2022-02-16] MEDS: Aspirin 81 mg Enteric Coated Tablet PO SCH (09:38)
[2022-02-16] MEDS: Polyethylene Glycol 3350 17 GM Packet PO SCH (09:39)
[2022-02-16] MEDS: HumaLOG 300 UNITS/3 ML VIAL SC PRN (17:10)
[2022-02-16] MEDS: Famotidine 20 MG TAB PO SCH (20:20)
[2022-02-16] MEDS: Rosuvastatin 10 MG TAB PO SCH (20:20)
[2022-02-17] MEDS: Acetaminophen 325 MG TAB PO SCH ×5 (01:45→23:57)
[2022-02-17] MEDS: Levothyroxine Sodium 50 MCG TAB PO SCH (05:10)
[2022-02-17] MEDS: HumaLOG 300 UNITS/3 ML VIAL SC PRN ×2 (05:26→11:56)
[2022-02-17 05:31] LABS: #Basophils 0.1 thou/uL (0.0-0.2); #Eosinphils 0.1 thou/uL (0.0-0.7); #Lymphocytes 1.8 thou/uL (1.20-3.40); #Monocytes 0.4 thou/uL (0.11-0.59); #Neutrophils 3.2 thou/uL (1.40-6.50); %Basophils 1.5 % (0.0-1.0); %Eosinophils 1.3 % (0.0-10.0); %Lymphocytes 31.6 % (21.0-51.0); %Neutrophils 57.7 % (42.0-75.0); Hemoglobin 10.5 g/dL (12.0-16.0); Mean Corpuscular HGB CONC 30.9 g/dL (32.0-36.0); Mean Corpuscular Hemoglobin 32.8 pg (27.0-31.0); Mean Platelet Volume 7.3 fL (7.4-10.4); Platelet Count 133 10x3/uL (130-400); RBC Distribution Width 15.2 % (11.5-14.5); Red Blood Cell (RBC) Count 3.22 mill/uL (4.20-5.40); White Blood Cell (WBC) Count 5.5 10x3/uL (4.8-10.8)
[2022-02-17 05:51] LABS: Anion Gap 15 mmol/L (10-20); BUN (Urea Nitrogen) 86 mg/dL (9.8-20.1); Calc. Creatinine Clearance 14 mL/min (70-130); Calcium 9.4 mg/dL (7.8-10.44); Carbon Dioxide 25 mmol/L (23-31); Chloride 103 mmol/L (98-107); Estimated GFR 15; Glucose 166 mg/dL (83-110); Potassium 4.4 mmol/L (3.5-5.1); Sodium 139 mmol/L (136-145)
[2022-02-17] MEDS: Heparin 5,000 UNITS/ML VIAL SC SCH ×2 (08:10→20:16)
[2022-02-17] MEDS: Potassium Chloride 20 MEQ TAB PO SCH (08:11)
[2022-02-17] MEDS: Polyethylene Glycol 3350 17 GM Packet PO SCH (08:11)
[2022-02-17] MEDS: Allopurinol 100 MG TAB PO SCH (08:11)
[2022-02-17] MEDS: Aspirin 81 mg Enteric Coated Tablet PO SCH (08:11)
[2022-02-17] MEDS: Furosemide 40 MG TAB PO SCH (08:11)
[2022-02-17] MEDS: Carvedilol 3.125 MG TAB PO SCH ×2 (08:11→20:16)
[2022-02-17] MEDS: Famotidine 20 MG TAB PO SCH (20:15)
[2022-02-17] MEDS: Rosuvastatin 10 MG TAB PO SCH (20:16)
[2022-02-18] MEDS: Levothyroxine Sodium 50 MCG TAB PO SCH (05:27)
[2022-02-18] MEDS: Acetaminophen 325 MG TAB PO SCH ×3 (05:27→17:29)
[2022-02-18] MEDS: Heparin 5,000 UNITS/ML VIAL SC SCH ×2 (08:49→21:04)
[2022-02-18] MEDS: Polyethylene Glycol 3350 17 GM Packet PO SCH (08:49)
[2022-02-18] MEDS: Furosemide 40 MG TAB PO SCH (08:50)
[2022-02-18] MEDS: Potassium Chloride 20 MEQ TAB PO SCH (08:50)
[2022-02-18] MEDS: Carvedilol 3.125 MG TAB PO SCH ×2 (08:50→21:05)
[2022-02-18] MEDS: Allopurinol 100 MG TAB PO SCH (08:51)
[2022-02-18] MEDS: Aspirin 81 mg Enteric Coated Tablet PO SCH (08:52)
[2022-02-18] MEDS: HumaLOG 300 UNITS/3 ML VIAL SC PRN ×2 (11:02→16:48)
[2022-02-18] MEDS: Famotidine 20 MG TAB PO SCH (21:04)
[2022-02-18] MEDS: Rosuvastatin 10 MG TAB PO SCH (21:05)
[2022-02-19] MEDS: Acetaminophen 325 MG TAB PO SCH ×5 (00:14→23:13)
[2022-02-19] MEDS: Levothyroxine Sodium 50 MCG TAB PO SCH (06:01)
[2022-02-19] MEDS: Carvedilol 3.125 MG TAB PO SCH ×2 (08:03→20:44)
[2022-02-19] MEDS: Furosemide 40 MG TAB PO SCH (08:03)
[2022-02-19] MEDS: Allopurinol 100 MG TAB PO SCH (08:03)
[2022-02-19] MEDS: Polyethylene Glycol 3350 17 GM Packet PO SCH (08:03)
[2022-02-19] MEDS: Aspirin 81 mg Enteric Coated Tablet PO SCH (08:03)
[2022-02-19] MEDS: Potassium Chloride 20 MEQ TAB PO SCH (08:04)
[2022-02-19] MEDS: Heparin 5,000 UNITS/ML VIAL SC SCH ×2 (08:05→20:46)
[2022-02-19] MEDS: HumaLOG 300 UNITS/3 ML VIAL SC PRN ×3 (11:42→20:47)
[2022-02-19] MEDS: Rosuvastatin 10 MG TAB PO SCH (20:44)
[2022-02-19] MEDS: Famotidine 20 MG TAB PO SCH (20:44)
[2022-02-20] MEDS: Levothyroxine Sodium 50 MCG TAB PO SCH (05:07)
[2022-02-20] MEDS: Acetaminophen 325 MG TAB PO SCH ×3 (05:07→17:21)
[2022-02-20 07:03] LABS: #Basophils 0.1 thou/uL (0.0-0.2); #Eosinphils 0.1 thou/uL (0.0-0.7); #Lymphocytes 1.3 thou/uL (1.20-3.40); #Monocytes 0.4 thou/uL (0.11-0.59); #Neutrophils 3.6 thou/uL (1.40-6.50); %Basophils 1.1 % (0.0-1.0); %Eosinophils 1.7 % (0.0-10.0); %Lymphocytes 23.1 % (21.0-51.0); %Monocytes 7.9 % (0.0-10.0); %Neutrophils 66.1 % (42.0-75.0); Hemoglobin 9.9 g/dL (12.0-16.0); Mean Corpuscular Hemoglobin 33.1 pg (27.0-31.0); Mean Platelet Volume 7.3 fL (7.4-10.4); Platelet Count 128 10x3/uL (130-400); RBC Distribution Width 15.4 % (11.5-14.5); White Blood Cell (WBC) Count 5.4 10x3/uL (4.8-10.8)
[2022-02-20 07:06] LABS: Anion Gap 15 mmol/L (10-20); BUN (Urea Nitrogen) 69 mg/dL (9.8-20.1); Calc. Creatinine Clearance 15 mL/min (70-130); Chloride 109 mmol/L (98-107); Estimated GFR 17; Glucose 171 mg/dL (83-110); Potassium 4.5 mmol/L (3.5-5.1)
[2022-02-20 07:16] LABS: Carbon Dioxide 21 mmol/L (23-31); Sodium 140 mmol/L (136-145)
[2022-02-20] MEDS: Aspirin 81 mg Enteric Coated Tablet PO SCH (08:04)
[2022-02-20] MEDS: Allopurinol 100 MG TAB PO SCH (08:04)
[2022-02-20] MEDS: Heparin 5,000 UNITS/ML VIAL SC SCH ×2 (08:05→20:44)
[2022-02-20] MEDS: Furosemide 40 MG TAB PO SCH (08:05)
[2022-02-20] MEDS: Carvedilol 3.125 MG TAB PO SCH ×2 (08:05→20:27)
[2022-02-20] MEDS: Potassium Chloride 20 MEQ TAB PO SCH (08:05)
[2022-02-20] MEDS: Polyethylene Glycol 3350 17 GM Packet PO SCH (08:05)
[2022-02-20] MEDS: HumaLOG 300 UNITS/3 ML VIAL SC PRN ×2 (12:05→17:23)
[2022-02-20] MEDS: Famotidine 20 MG TAB PO SCH (20:27)
[2022-02-20] MEDS: Rosuvastatin 10 MG TAB PO SCH (20:28)
[2022-02-21] MEDS: Acetaminophen 325 MG TAB PO SCH ×4 (00:08→18:30)
[2022-02-21] MEDS: Levothyroxine Sodium 50 MCG TAB PO SCH (05:38)
[2022-02-21] MEDS: Aspirin 81 mg Enteric Coated Tablet PO SCH (07:47)
[2022-02-21] MEDS: Carvedilol 3.125 MG TAB PO SCH ×2 (07:47→20:20)
[2022-02-21] MEDS: Furosemide 40 MG TAB PO SCH (07:47)
[2022-02-21] MEDS: Potassium Chloride 20 MEQ TAB PO SCH (07:47)
[2022-02-21] MEDS: Allopurinol 100 MG TAB PO SCH (07:48)
[2022-02-21] MEDS: Polyethylene Glycol 3350 17 GM Packet PO SCH (07:48)
[2022-02-21] MEDS: Heparin 5,000 UNITS/ML VIAL SC SCH ×2 (11:23→20:22)
[2022-02-21] MEDS: HumaLOG 300 UNITS/3 ML VIAL SC PRN (12:03)
[2022-02-21] MEDS: Famotidine 20 MG TAB PO SCH (20:20)
[2022-02-21] MEDS: Rosuvastatin 10 MG TAB PO SCH (20:20)
[2022-02-22] MEDS: Acetaminophen 325 MG TAB PO SCH ×5 (00:10→23:51)
[2022-02-22] MEDS: Levothyroxine Sodium 50 MCG TAB PO SCH (05:23)
[2022-02-22 05:37] LABS: #Basophils 0.1 thou/uL (0.0-0.2); #Eosinphils 0.1 thou/uL (0.0-0.7); #Lymphocytes 1.6 thou/uL (1.20-3.40); #Monocytes 0.5 thou/uL (0.11-0.59); #Neutrophils 2.9 thou/uL (1.40-6.50); %Basophils 1.3 % (0.0-1.0); %Eosinophils 2.1 % (0.0-10.0); %Monocytes 8.9 % (0.0-10.0); %Neutrophils 56.6 % (42.0-75.0); Mean Corpuscular HGB CONC 31.8 g/dL (32.0-36.0); Mean Corpuscular Hemoglobin 33.6 pg (27.0-31.0); Mean Platelet Volume 7.6 fL (7.4-10.4); Platelet Count 119 10x3/uL (130-400); RBC Distribution Width 14.7 % (11.5-14.5); Red Blood Cell (RBC) Count 2.97 mill/uL (4.20-5.40); White Blood Cell (WBC) Count 5.2 10x3/uL (4.8-10.8)
[2022-02-22 05:43] LABS: Anion Gap 15 mmol/L (10-20); BUN (Urea Nitrogen) 69 mg/dL (9.8-20.1); Calc. Creatinine Clearance 15 mL/min (70-130); Calcium 9.3 mg/dL (7.8-10.44); Carbon Dioxide 21 mmol/L (23-31); Chloride 108 mmol/L (98-107); Estimated GFR 17; Glucose 133 mg/dL (83-110); Potassium 4.5 mmol/L (3.5-5.1); Sodium 139 mmol/L (136-145)
[2022-02-22] MEDS: Carvedilol 3.125 MG TAB PO SCH ×2 (09:26→20:49)
[2022-02-22] MEDS: Allopurinol 100 MG TAB PO SCH (09:26)
[2022-02-22] MEDS: Aspirin 81 mg Enteric Coated Tablet PO SCH (09:26)
[2022-02-22] MEDS: Furosemide 40 MG TAB PO SCH (09:26)
[2022-02-22] MEDS: Potassium Chloride 20 MEQ TAB PO SCH (09:26)
[2022-02-22] MEDS: Heparin 5,000 UNITS/ML VIAL SC SCH ×2 (09:26→20:49)
[2022-02-22] MEDS: Polyethylene Glycol 3350 17 GM Packet PO SCH (09:27)
[2022-02-22] MEDS: HumaLOG 300 UNITS/3 ML VIAL SC PRN ×2 (12:26→20:51)
[2022-02-22] MEDS: Famotidine 20 MG TAB PO SCH (20:48)
[2022-02-22] MEDS: Rosuvastatin 10 MG TAB PO SCH (20:49)
[2022-02-23] MEDS: Levothyroxine Sodium 50 MCG TAB PO SCH (05:21)
[2022-02-23] MEDS: Acetaminophen 325 MG TAB PO SCH ×3 (05:21→17:37)
[2022-02-23] MEDS: Carvedilol 3.125 MG TAB PO SCH ×2 (09:05→21:17)
[2022-02-23] MEDS: Furosemide 40 MG TAB PO SCH (09:05)
[2022-02-23] MEDS: Heparin 5,000 UNITS/ML VIAL SC SCH ×2 (09:06→21:19)
[2022-02-23] MEDS: Allopurinol 100 MG TAB PO SCH (09:06)
[2022-02-23] MEDS: Potassium Chloride 20 MEQ TAB PO SCH (09:06)
[2022-02-23] MEDS: Aspirin 81 mg Enteric Coated Tablet PO SCH (09:06)
[2022-02-23] MEDS: Polyethylene Glycol 3350 17 GM Packet PO SCH (09:07)
[2022-02-23] MEDS: HumaLOG 300 UNITS/3 ML VIAL SC PRN (11:36)
[2022-02-23] MEDS: Rosuvastatin 10 MG TAB PO SCH (21:17)
[2022-02-23] MEDS: Famotidine 20 MG TAB PO SCH (21:17)
[2022-02-24] MEDS: Acetaminophen 325 MG TAB PO SCH ×4 (01:41→17:39)
[2022-02-24] MEDS: Levothyroxine Sodium 50 MCG TAB PO SCH (06:12)
[2022-02-24 06:15] LABS: #Basophils 0.1 thou/uL (0.0-0.2); #Eosinphils 0.1 thou/uL (0.0-0.7); #Lymphocytes 1.6 thou/uL (1.20-3.40); #Monocytes 0.5 thou/uL (0.11-0.59); #Neutrophils 5.6 thou/uL (1.40-6.50); %Basophils 0.8 % (0.0-1.0); %Eosinophils 0.9 % (0.0-10.0); %Lymphocytes 20.2 % (21.0-51.0); %Monocytes 6.5 % (0.0-10.0); %Neutrophils 71.6 % (42.0-75.0); Hemoglobin 10.5 g/dL (12.0-16.0); Mean Corpuscular HGB CONC 31.7 g/dL (32.0-36.0); Mean Corpuscular Hemoglobin 33.4 pg (27.0-31.0); Mean Platelet Volume 6.8 fL (7.4-10.4); Platelet Count 123 10x3/uL (130-400); RBC Distribution Width 15.1 % (11.5-14.5); Red Blood Cell (RBC) Count 3.15 mill/uL (4.20-5.40); White Blood Cell (WBC) Count 7.8 10x3/uL (4.8-10.8)
[2022-02-24 06:31] LABS: Anion Gap 14 mmol/L (10-20); BUN (Urea Nitrogen) 66 mg/dL (9.8-20.1); Calc. Creatinine Clearance 16 mL/min (70-130); Calcium 9.3 mg/dL (7.8-10.44); Carbon Dioxide 21 mmol/L (23-31); Chloride 108 mmol/L (98-107); Estimated GFR 18; Glucose 117 mg/dL (83-110); Potassium 4.2 mmol/L (3.5-5.1); Sodium 139 mmol/L (136-145)
[2022-02-24] MEDS: Furosemide 40 MG TAB PO SCH (08:17)
[2022-02-24] MEDS: Aspirin 81 mg Enteric Coated Tablet PO SCH (08:17)
[2022-02-24] MEDS: Allopurinol 100 MG TAB PO SCH (08:17)
[2022-02-24] MEDS: Potassium Chloride 20 MEQ TAB PO SCH (08:17)
[2022-02-24] MEDS: Carvedilol 3.125 MG TAB PO SCH ×2 (08:18→21:41)
[2022-02-24] MEDS: Heparin 5,000 UNITS/ML VIAL SC SCH ×2 (08:20→21:41)
[2022-02-24] MEDS: Polyethylene Glycol 3350 17 GM Packet PO SCH (08:20)
[2022-02-24] MEDS: HumaLOG 300 UNITS/3 ML VIAL SC PRN (11:59)
[2022-02-24] MEDS: Rosuvastatin 10 MG TAB PO SCH (21:41)
[2022-02-24] MEDS: Famotidine 20 MG TAB PO SCH (21:41)
[2022-02-25] MEDS: Acetaminophen 325 MG TAB PO SCH ×4 (00:54→17:25)
[2022-02-25] MEDS: Levothyroxine Sodium 50 MCG TAB PO SCH (05:56)
[2022-02-25] MEDS: Carvedilol 3.125 MG TAB PO SCH ×2 (08:42→20:39)
[2022-02-25] MEDS: Potassium Chloride 20 MEQ TAB PO SCH (08:43)
[2022-02-25] MEDS: Aspirin 81 mg Enteric Coated Tablet PO SCH (08:43)
[2022-02-25] MEDS: Allopurinol 100 MG TAB PO SCH (08:43)
[2022-02-25] MEDS: Furosemide 40 MG TAB PO SCH (08:43)
[2022-02-25] MEDS: Polyethylene Glycol 3350 17 GM Packet PO SCH (08:43)
[2022-02-25] MEDS: Heparin 5,000 UNITS/ML VIAL SC SCH ×2 (09:13→20:40)
[2022-02-25] MEDS: HumaLOG 300 UNITS/3 ML VIAL SC PRN (17:21)
[2022-02-25] MEDS: Rosuvastatin 10 MG TAB PO SCH (20:39)
[2022-02-25] MEDS: Famotidine 20 MG TAB PO SCH (20:39)
[2022-02-26] MEDS: Acetaminophen 325 MG TAB PO SCH ×4 (00:43→16:58)
[2022-02-26] MEDS: Levothyroxine Sodium 50 MCG TAB PO SCH (05:44)
[2022-02-26] MEDS: Aspirin 81 mg Enteric Coated Tablet PO SCH (08:16)
[2022-02-26] MEDS: Potassium Chloride 20 MEQ TAB PO SCH (08:16)
[2022-02-26] MEDS: Loratadine 10 MG TAB PO SCH (08:16)
[2022-02-26] MEDS: Furosemide 40 MG TAB PO SCH (08:16)
[2022-02-26] MEDS: Allopurinol 100 MG TAB PO SCH (08:16)
[2022-02-26] MEDS: Heparin 5,000 UNITS/ML VIAL SC SCH ×2 (08:17→21:20)
[2022-02-26] MEDS: Polyethylene Glycol 3350 17 GM Packet PO SCH (08:17)
[2022-02-26] MEDS: Carvedilol 3.125 MG TAB PO SCH ×2 (08:17→21:24)
[2022-02-26] MEDS: HumaLOG 300 UNITS/3 ML VIAL SC PRN (12:21)
[2022-02-26 20:01] LABS: Bilirubin Negative (Negative); Blood, Urine Negative (Negative); Glucose, Urine (Dipstick) Negative (Negative); Ketone, Urine Negative (Negative); Leukocyte Moderate (Negative); Nitrite Positive (Negative); Protein, Urine (Dipstick) Negative (Neg-Trace); Urobilinogen 0.2 mg/dL (Less than 2)
[2022-02-26 20:09] LABS: Bacteria/HPF 3+ HPF (None Seen); Clarity SL HAZY (Clear); Squamous Epithelial 0-3 HPF (0-3)
[2022-02-26] MEDS: Rosuvastatin 10 MG TAB PO SCH (21:24)
[2022-02-26] MEDS: Famotidine 20 MG TAB PO SCH (21:24)
[2022-02-27] MEDS: Acetaminophen 325 MG TAB PO SCH ×4 (00:46→18:05)
[2022-02-27 05:50] LABS: #Eosinphils 0.1 thou/uL (0.0-0.7); #Lymphocytes 1.4 thou/uL (1.20-3.40); #Monocytes 0.5 thou/uL (0.11-0.59); #Neutrophils 2.7 thou/uL (1.40-6.50); %Eosinophils 2.4 % (0.0-10.0); %Lymphocytes 28.9 % (21.0-51.0); %Monocytes 11.1 % (0.0-10.0); %Neutrophils 56.6 % (42.0-75.0); Mean Corpuscular HGB CONC 32.8 g/dL (32.0-36.0); Mean Corpuscular Hemoglobin 33.7 pg (27.0-31.0); Mean Platelet Volume 6.8 fL (7.4-10.4); Platelet Count 131 10x3/uL (130-400); RBC Distribution Width 14.5 % (11.5-14.5); Red Blood Cell (RBC) Count 3.27 mill/uL (4.20-5.40); White Blood Cell (WBC) Count 4.8 10x3/uL (4.8-10.8)
[2022-02-27 06:06] LABS: Anion Gap 15 mmol/L (10-20); BUN (Urea Nitrogen) 70 mg/dL (9.8-20.1); Calc. Creatinine Clearance 17 mL/min (70-130); Calcium 9.5 mg/dL (7.8-10.44); Carbon Dioxide 19 mmol/L (23-31); Chloride 107 mmol/L (98-107); Estimated GFR 18; Glucose 109 mg/dL (83-110); Sodium 137 mmol/L (136-145)
[2022-02-27] MEDS: Levothyroxine Sodium 50 MCG TAB PO SCH (06:21)
[2022-02-27] MEDS: Furosemide 40 MG TAB PO SCH (09:40)
[2022-02-27] MEDS: Potassium Chloride 20 MEQ TAB PO SCH (09:40)
[2022-02-27] MEDS: Loratadine 10 MG TAB PO SCH (09:41)
[2022-02-27] MEDS: Aspirin 81 mg Enteric Coated Tablet PO SCH (09:42)
[2022-02-27] MEDS: Polyethylene Glycol 3350 17 GM Packet PO SCH (09:43)
[2022-02-27] MEDS: Allopurinol 100 MG TAB PO SCH (09:43)
[2022-02-27] MEDS: Carvedilol 3.125 MG TAB PO SCH ×2 (09:43→21:03)
[2022-02-27] MEDS: Heparin 5,000 UNITS/ML VIAL SC SCH ×2 (09:51→21:06)
[2022-02-27] MEDS: HumaLOG 300 UNITS/3 ML VIAL SC PRN (12:02)
[2022-02-27] MEDS: Famotidine 20 MG TAB PO SCH (21:03)
[2022-02-27] MEDS: Nitrofurantoin Monohyd/M-Cryst 100 MG CAP PO SCH (21:03)
[2022-02-27] MEDS: Rosuvastatin 10 MG TAB PO SCH (21:03)
[2022-02-28] MEDS: Acetaminophen 325 MG TAB PO SCH ×4 (00:08→17:26)
[2022-02-28] MEDS: Levothyroxine Sodium 50 MCG TAB PO SCH (05:44)
[2022-02-28] MEDS: Polyethylene Glycol 3350 17 GM Packet PO SCH (08:45)
[2022-02-28] MEDS: Furosemide 40 MG TAB PO SCH (08:47)
[2022-02-28] MEDS: Nitrofurantoin Monohyd/M-Cryst 100 MG CAP PO SCH ×2 (08:47→20:56)
[2022-02-28] MEDS: Loratadine 10 MG TAB PO SCH (08:47)
[2022-02-28] MEDS: Allopurinol 100 MG TAB PO SCH (08:47)
[2022-02-28] MEDS: Aspirin 81 mg Enteric Coated Tablet PO SCH (08:47)
[2022-02-28] MEDS: Carvedilol 3.125 MG TAB PO SCH ×2 (08:47→20:56)
[2022-02-28] MEDS: Potassium Chloride 20 MEQ TAB PO SCH (08:47)
[2022-02-28] MEDS: Heparin 5,000 UNITS/ML VIAL SC SCH ×2 (08:48→20:56)
[2022-02-28] MEDS: HumaLOG 300 UNITS/3 ML VIAL SC PRN ×2 (11:18→20:56)
[2022-02-28] MEDS: Famotidine 20 MG TAB PO SCH (20:55)
[2022-02-28] MEDS: Rosuvastatin 10 MG TAB PO SCH (20:55)
[2022-03-01] MEDS: Acetaminophen 325 MG TAB PO SCH ×4 (05:20→17:38)
[2022-03-01] MEDS: Levothyroxine Sodium 50 MCG TAB PO SCH (05:20)
[2022-03-01 06:24] LABS: #Basophils 0.1 thou/uL (0.0-0.2); #Eosinphils 0.1 thou/uL (0.0-0.7); #Lymphocytes 1.5 thou/uL (1.20-3.40); #Monocytes 0.4 thou/uL (0.11-0.59); %Basophils 1.4 % (0.0-1.0); %Eosinophils 2.1 % (0.0-10.0); %Lymphocytes 30.2 % (21.0-51.0); %Monocytes 7.7 % (0.0-10.0); %Neutrophils 58.6 % (42.0-75.0); Hemoglobin 11.6 g/dL (12.0-16.0); Mean Corpuscular HGB CONC 31.1 g/dL (32.0-36.0); Mean Corpuscular Hemoglobin 33.1 pg (27.0-31.0); Mean Platelet Volume 7.2 fL (7.4-10.4); Platelet Count 145 10x3/uL (130-400); White Blood Cell (WBC) Count 5.1 10x3/uL (4.8-10.8)
[2022-03-01 06:41] LABS: Anion Gap 14 mmol/L (10-20); BUN (Urea Nitrogen) 66 mg/dL (9.8-20.1); Calc. Creatinine Clearance 16 mL/min (70-130); Calcium 9.3 mg/dL (7.8-10.44); Carbon Dioxide 21 mmol/L (23-31); Chloride 107 mmol/L (98-107); Estimated GFR 18; Glucose 116 mg/dL (83-110); Potassium 4.3 mmol/L (3.5-5.1); Sodium 138 mmol/L (136-145)
[2022-03-01] MEDS: Potassium Chloride 20 MEQ TAB PO SCH (08:20)
[2022-03-01] MEDS: Carvedilol 3.125 MG TAB PO SCH ×2 (08:20→21:52)
[2022-03-01] MEDS: Furosemide 40 MG TAB PO SCH (08:20)
[2022-03-01] MEDS: Allopurinol 100 MG TAB PO SCH (08:20)
[2022-03-01] MEDS: Aspirin 81 mg Enteric Coated Tablet PO SCH (08:20)
[2022-03-01] MEDS: Nitrofurantoin Monohyd/M-Cryst 100 MG CAP PO SCH (08:20)
[2022-03-01] MEDS: Loratadine 10 MG TAB PO SCH (08:20)
[2022-03-01] MEDS: Heparin 5,000 UNITS/ML VIAL SC SCH ×2 (08:21→21:52)
[2022-03-01] MEDS: Polyethylene Glycol 3350 17 GM Packet PO SCH (08:27)
[2022-03-01] MEDS: HumaLOG 300 UNITS/3 ML VIAL SC PRN (11:44)
[2022-03-01] MEDS ORDERED: Cephalexin 500 MG CAP PO SCH (12:00)
[2022-03-01] MEDS: Cephalexin 500 MG CAP PO SCH ×2 (13:56→21:52)
[2022-03-01] MEDS: Rosuvastatin 10 MG TAB PO SCH (21:52)
[2022-03-01] MEDS: Famotidine 20 MG TAB PO SCH (21:52)
[2022-03-02] MEDS: Acetaminophen 325 MG TAB PO SCH ×5 (00:32→23:50)
[2022-03-02] MEDS: Cephalexin 500 MG CAP PO SCH ×3 (05:56→20:55)
[2022-03-02] MEDS: Levothyroxine Sodium 50 MCG TAB PO SCH (05:57)
[2022-03-02 06:32] LABS: Anion Gap 14 mmol/L (10-20); BUN (Urea Nitrogen) 70 mg/dL (9.8-20.1); Calc. Creatinine Clearance 15 mL/min (70-130); Calcium 9.1 mg/dL (7.8-10.44); Carbon Dioxide 21 mmol/L (23-31); Chloride 107 mmol/L (98-107); Estimated GFR 18; Potassium 4.2 mmol/L (3.5-5.1); Sodium 138 mmol/L (136-145)
[2022-03-02 06:57] LABS: #Lymphocytes 1.5 thou/uL (1.20-3.40); #Monocytes 0.4 thou/uL (0.11-0.59); #Neutrophils 2.3 thou/uL (1.40-6.50); %Basophils 0.6 % (0.0-1.0); %Eosinophils 1.8 % (0.0-10.0); %Lymphocytes 35.4 % (21.0-51.0); %Monocytes 8.7 % (0.0-10.0); %Neutrophils 53.5 % (42.0-75.0); Hemoglobin 10.7 g/dL (12.0-16.0); Mean Corpuscular HGB CONC 30.9 g/dL (32.0-36.0); Mean Corpuscular Hemoglobin 32.6 pg (27.0-31.0); Mean Platelet Volume 8.1 fL (7.4-10.4); Platelet Count 143 10x3/uL (130-400); RBC Distribution Width 14.8 % (11.5-14.5); Red Blood Cell (RBC) Count 3.27 mill/uL (4.20-5.40); White Blood Cell (WBC) Count 4.3 10x3/uL (4.8-10.8)
[2022-03-02 07:04] LABS: Glucose 138 mg/dL (83-110)
[2022-03-02] MEDS: Aspirin 81 mg Enteric Coated Tablet PO SCH (08:06)
[2022-03-02] MEDS: Furosemide 40 MG TAB PO SCH (08:06)
[2022-03-02] MEDS: Potassium Chloride 20 MEQ TAB PO SCH (08:06)
[2022-03-02] MEDS: Allopurinol 100 MG TAB PO SCH (08:06)
[2022-03-02] MEDS: Loratadine 10 MG TAB PO SCH (08:06)
[2022-03-02] MEDS: Heparin 5,000 UNITS/ML VIAL SC SCH ×2 (08:06→20:56)
[2022-03-02] MEDS: Carvedilol 3.125 MG TAB PO SCH ×2 (08:06→20:55)
[2022-03-02] MEDS: Polyethylene Glycol 3350 17 GM Packet PO SCH (08:49)
[2022-03-02] MEDS: HumaLOG 300 UNITS/3 ML VIAL SC PRN ×2 (11:52→16:37)
[2022-03-02] MEDS: Rosuvastatin 10 MG TAB PO SCH (20:56)
[2022-03-02] MEDS: Famotidine 20 MG TAB PO SCH (20:56)
[2022-03-03] MEDS: Acetaminophen 325 MG TAB PO SCH ×4 (05:11→23:16)
[2022-03-03] MEDS: Levothyroxine Sodium 50 MCG TAB PO SCH (05:12)
[2022-03-03] MEDS: Cephalexin 500 MG CAP PO SCH ×3 (05:12→21:53)
[2022-03-03 06:09] LABS: #Eosinphils 0.1 thou/uL (0.0-0.7); #Lymphocytes 1.7 thou/uL (1.20-3.40); #Monocytes 0.3 thou/uL (0.11-0.59); #Neutrophils 2.9 thou/uL (1.40-6.50); %Basophils 0.9 % (0.0-1.0); %Eosinophils 2.8 % (0.0-10.0); %Monocytes 6.4 % (0.0-10.0); %Neutrophils 56.9 % (42.0-75.0); Hemoglobin 11.9 g/dL (12.0-16.0); Mean Corpuscular HGB CONC 32.5 g/dL (32.0-36.0); Mean Corpuscular Hemoglobin 33.8 pg (27.0-31.0); Mean Platelet Volume 7.1 fL (7.4-10.4); Platelet Count 156 10x3/uL (130-400); RBC Distribution Width 14.4 % (11.5-14.5); Red Blood Cell (RBC) Count 3.52 mill/uL (4.20-5.40); White Blood Cell (WBC) Count 5.1 10x3/uL (4.8-10.8)
[2022-03-03 06:25] LABS: Anion Gap 16 mmol/L (10-20); BUN (Urea Nitrogen) 66 mg/dL (9.8-20.1); Calc. Creatinine Clearance 18 mL/min (70-130); Calcium 9.5 mg/dL (7.8-10.44); Carbon Dioxide 21 mmol/L (23-31); Chloride 107 mmol/L (98-107); Estimated GFR 20; Glucose 112 mg/dL (83-110); Potassium 4.3 mmol/L (3.5-5.1); Sodium 140 mmol/L (136-145)
[2022-03-03] MEDS: Allopurinol 100 MG TAB PO SCH (08:33)
[2022-03-03] MEDS: Furosemide 40 MG TAB PO SCH (08:34)
[2022-03-03] MEDS: Loratadine 10 MG TAB PO SCH (08:34)
[2022-03-03] MEDS: Aspirin 81 mg Enteric Coated Tablet PO SCH (08:34)
[2022-03-03] MEDS: Potassium Chloride 20 MEQ TAB PO SCH (08:34)
[2022-03-03] MEDS: Heparin 5,000 UNITS/ML VIAL SC SCH ×2 (08:34→20:37)
[2022-03-03] MEDS: Carvedilol 3.125 MG TAB PO SCH ×2 (08:34→20:36)
[2022-03-03] MEDS: Polyethylene Glycol 3350 17 GM Packet PO SCH (08:35)
[2022-03-03] MEDS: HumaLOG 300 UNITS/3 ML VIAL SC PRN (11:49)
[2022-03-03] MEDS: Famotidine 20 MG TAB PO SCH (20:36)
[2022-03-03] MEDS: Rosuvastatin 10 MG TAB PO SCH (20:36)
[2022-03-04] MEDS: Acetaminophen 325 MG TAB PO SCH ×3 (05:27→17:28)
[2022-03-04] MEDS: Cephalexin 500 MG CAP PO SCH ×3 (05:27→20:39)
[2022-03-04] MEDS: Levothyroxine Sodium 50 MCG TAB PO SCH (05:27)
[2022-03-04] MEDS: Carvedilol 3.125 MG TAB PO SCH ×2 (09:11→20:30)
[2022-03-04] MEDS: Aspirin 81 mg Enteric Coated Tablet PO SCH (09:11)
[2022-03-04] MEDS: Furosemide 40 MG TAB PO SCH (09:11)
[2022-03-04] MEDS: Polyethylene Glycol 3350 17 GM Packet PO SCH (09:12)
[2022-03-04] MEDS: Allopurinol 100 MG TAB PO SCH (09:12)
[2022-03-04] MEDS: Loratadine 10 MG TAB PO SCH (09:12)
[2022-03-04] MEDS: Potassium Chloride 20 MEQ TAB PO SCH (09:12)
[2022-03-04] MEDS: Heparin 5,000 UNITS/ML VIAL SC SCH ×2 (09:12→20:33)
[2022-03-04] MEDS: HumaLOG 300 UNITS/3 ML VIAL SC PRN ×2 (11:27→16:56)
[2022-03-04] MEDS: Famotidine 20 MG TAB PO SCH (20:30)
[2022-03-04] MEDS: Rosuvastatin 10 MG TAB PO SCH (20:31)
[2022-03-05] MEDS: Acetaminophen 325 MG TAB PO SCH ×5 (00:56→23:23)
[2022-03-05] MEDS: Levothyroxine Sodium 50 MCG TAB PO SCH (05:56)
[2022-03-05] MEDS: Cephalexin 500 MG CAP PO SCH ×3 (05:56→21:12)
[2022-03-05] MEDS: Loratadine 10 MG TAB PO SCH (08:12)
[2022-03-05] MEDS: Furosemide 40 MG TAB PO SCH (08:12)
[2022-03-05] MEDS: Aspirin 81 mg Enteric Coated Tablet PO SCH (08:12)
[2022-03-05] MEDS: Potassium Chloride 20 MEQ TAB PO SCH (08:12)
[2022-03-05] MEDS: Carvedilol 3.125 MG TAB PO SCH ×2 (08:12→21:01)
[2022-03-05] MEDS: Allopurinol 100 MG TAB PO SCH (08:13)
[2022-03-05] MEDS: Polyethylene Glycol 3350 17 GM Packet PO SCH (08:14)
[2022-03-05] MEDS: Heparin 5,000 UNITS/ML VIAL SC SCH ×2 (08:14→21:02)
[2022-03-05] MEDS: HumaLOG 300 UNITS/3 ML VIAL SC PRN ×2 (11:31→21:04)
[2022-03-05] MEDS: Famotidine 20 MG TAB PO SCH (21:01)
[2022-03-05] MEDS: Rosuvastatin 10 MG TAB PO SCH (21:01)
[2022-03-06 00:37] VITALS: BMI 21.7
[2022-03-06] MEDS: Cephalexin 500 MG CAP PO SCH ×3 (05:28→21:23)
[2022-03-06] MEDS: Levothyroxine Sodium 50 MCG TAB PO SCH (05:28)
[2022-03-06] MEDS: Acetaminophen 325 MG TAB PO SCH ×3 (05:28→18:19)
[2022-03-06 05:30] LABS: %Basophils 1.1 % (0.0-1.0); %Eosinophils 2.5 % (0.0-10.0); %Lymphocytes 32.9 % (21.0-51.0); %Monocytes 7.6 % (0.0-10.0); Hemoglobin 10.7 g/dL (12.0-16.0); Manual Diff?? NO; Mean Corpuscular HGB CONC 32.1 g/dL (32.0-36.0); Mean Corpuscular Hemoglobin 33.3 pg (27.0-31.0); Mean Platelet Volume 7.2 fL (7.4-10.4); Platelet Count 137 10x3/uL (130-400); RBC Distribution Width 14.8 % (11.5-14.5); Red Blood Cell (RBC) Count 3.22 mill/uL (4.20-5.40); White Blood Cell (WBC) Count 5.7 10x3/uL (4.8-10.8)
[2022-03-06 05:31] LABS: #Basophils 0.1 thou/uL (0.0-0.2); #Eosinphils 0.1 thou/uL (0.0-0.7); #Lymphocytes 1.9 thou/uL (1.20-3.40); #Monocytes 0.4 thou/uL (0.11-0.59); #Neutrophils 3.2 thou/uL (1.40-6.50)
[2022-03-06 05:43] LABS: Carbon Dioxide 20 mmol/L (23-31)
[2022-03-06 05:44] LABS: Anion Gap 15 mmol/L (10-20); BUN (Urea Nitrogen) 77 mg/dL (9.8-20.1); Calc. Creatinine Clearance 14 mL/min (70-130); Calcium 9.4 mg/dL (7.8-10.44); Chloride 109 mmol/L (98-107); Estimated GFR 16; Glucose 137 mg/dL (83-110); Potassium 4.6 mmol/L (3.5-5.1); Sodium 139 mmol/L (136-145)
[2022-03-06] MEDS: Furosemide 40 MG TAB PO SCH (07:49)
[2022-03-06] MEDS: Potassium Chloride 20 MEQ TAB PO SCH (07:49)
[2022-03-06] MEDS: Aspirin 81 mg Enteric Coated Tablet PO SCH (07:49)
[2022-03-06] MEDS: Loratadine 10 MG TAB PO SCH (07:49)
[2022-03-06] MEDS: Allopurinol 100 MG TAB PO SCH (07:49)
[2022-03-06] MEDS: Carvedilol 3.125 MG TAB PO SCH ×2 (07:49→21:23)
[2022-03-06] MEDS: Polyethylene Glycol 3350 17 GM Packet PO SCH (07:50)
[2022-03-06] MEDS: Heparin 5,000 UNITS/ML VIAL SC SCH ×2 (07:53→21:24)
[2022-03-06] MEDS: HumaLOG 300 UNITS/3 ML VIAL SC PRN (11:35)
[2022-03-06] MEDS: Rosuvastatin 10 MG TAB PO SCH (21:23)
[2022-03-06] MEDS: Famotidine 20 MG TAB PO SCH (21:23)
[2022-03-07] MEDS: Acetaminophen 325 MG TAB PO SCH ×4 (00:53→17:19)
[2022-03-07] MEDS: Levothyroxine Sodium 50 MCG TAB PO SCH (05:44)
[2022-03-07] MEDS: Cephalexin 500 MG CAP PO SCH ×3 (05:44→20:57)
[2022-03-07] MEDS: Potassium Chloride 20 MEQ TAB PO SCH (07:21)
[2022-03-07] MEDS ORDERED: Allopurinol 100 MG TAB PO SCH (07:45)
[2022-03-07] MEDS: Heparin 5,000 UNITS/ML VIAL SC SCH ×2 (07:57→20:51)
[2022-03-07] MEDS: Loratadine 10 MG TAB PO SCH (07:58)
[2022-03-07] MEDS: Aspirin 81 mg Enteric Coated Tablet PO SCH (07:58)
[2022-03-07] MEDS: Polyethylene Glycol 3350 17 GM Packet PO SCH (07:58)
[2022-03-07] MEDS: Furosemide 40 MG TAB PO SCH (07:58)
[2022-03-07] MEDS: Carvedilol 3.125 MG TAB PO SCH ×2 (07:58→20:51)
[2022-03-07] MEDS: HumaLOG 300 UNITS/3 ML VIAL SC PRN (11:58)
[2022-03-07] MEDS: Rosuvastatin 10 MG TAB PO SCH (20:51)
[2022-03-07] MEDS: Famotidine 20 MG TAB PO SCH (20:51)
[2022-03-08] MEDS: Acetaminophen 325 MG TAB PO SCH ×4 (00:03→19:18)
[2022-03-08] MEDS: Cephalexin 500 MG CAP PO SCH ×2 (05:36→12:42)
[2022-03-08] MEDS: Levothyroxine Sodium 50 MCG TAB PO SCH (05:36)
[2022-03-08] MEDS: Carvedilol 3.125 MG TAB PO SCH (07:59)
[2022-03-08] MEDS: Allopurinol 100 MG TAB PO SCH (07:59)
[2022-03-08] MEDS: Potassium Chloride 20 MEQ TAB PO SCH (07:59)
[2022-03-08] MEDS: Furosemide 40 MG TAB PO SCH (07:59)
[2022-03-08] MEDS: Loratadine 10 MG TAB PO SCH (07:59)
[2022-03-08] MEDS: Aspirin 81 mg Enteric Coated Tablet PO SCH (07:59)
[2022-03-08] MEDS: Polyethylene Glycol 3350 17 GM Packet PO SCH (08:01)
[2022-03-08] MEDS: Heparin 5,000 UNITS/ML VIAL SC SCH (08:01)
[2022-03-08 11:52] LABS: CAUTI Indications for Culture Alt mental st,lethar
[2022-03-08 11:59] VITALS: BP 133/82; TEMP 97.6
[2022-03-08] MEDS: HumaLOG 300 UNITS/3 ML VIAL SC PRN (12:45)
== END 2022-03-08 19:06 | disposition home health service (06) | DRG 560 ==
LOC: NAV ACUTE 11:38
PROVIDERS: ADMIT Family Medicine; ATTEND Family Medicine
DX: S72.141D Displaced intertrochanteric fracture of right femur, subsequent encounter for closed fracture with routine healing (principal); I13.0 Hypertensive heart and chronic kidney disease with heart failure and stage 1 through stage 4 chronic kidney disease, or unspecified chronic kidney disease; I48.20 Chronic atrial fibrillation, unspecified; N18.4 Chronic kidney disease, stage 4 (severe); N39.0 Urinary tract infection, site not specified; L03.115 Cellulitis of right lower limb; I50.22 Chronic systolic (congestive) heart failure; R53.1 Weakness; E78.5 Hyperlipidemia, unspecified; I25.10 Atherosclerotic heart disease of native coronary artery without angina pectoris; E03.9 Hypothyroidism, unspecified; E11.22 Type 2 diabetes mellitus with diabetic chronic kidney disease; I44.7 Left bundle-branch block, unspecified; M10.9 Gout, unspecified; N18.30 Chronic kidney disease, stage 3 unspecified; R53.81 Other malaise; D63.1 Anemia in chronic kidney disease; L89.899 Pressure ulcer of other site, unspecified stage; Z20.822 Contact with and (suspected) exposure to COVID-19; Z88.8 Allergy status to other drugs, medicaments and biological substances; Z88.6 Allergy status to analgesic agent; Z79.890 Hormone replacement therapy; Z79.899 Other long term (current) drug therapy; Z79.4 Long term (current) use of insulin; Z79.82 Long term (current) use of aspirin; Z95.5 Presence of coronary angioplasty implant and graft; I25.2 Old myocardial infarction
CPT/HCPCS: 36415; 36416; 80048; 81001; 82607; 84550; 85025; 85652; 86140; 87070; 87205; 87811; J1644; J1815

== ENCOUNTER 2022-05-05 10:42 | Inpatient (IN) | payer MEDICARE, BC ==
[2022-05-05] MEDS ORDERED: Artificial Tear Sol 15 ML BOT EA EYE PRN (12:24)
[2022-05-05] MEDS ORDERED: Calcium Carbonate 500 MG ChewTAB PO PRN (12:24)
[2022-05-05] MEDS ORDERED: Acetaminophen 650 MG Suppository PR PRN (12:24)
[2022-05-05] MEDS ORDERED: Dextrose 50% Abboject 50 ML SYRINGE SLOW IVP PRN (12:24)
[2022-05-05] MEDS ORDERED: Senokot S 8.6-50 MG TAB PO PRN (12:24)
[2022-05-05] MEDS ORDERED: Sodium Chloride 0.65% Nasal 44 ML BOT EA NARE PRN (12:24)
[2022-05-05] MEDS ORDERED: Cepastat Lozenges 1 LOZ PO PRN (12:24)
[2022-05-05] MEDS ORDERED: Ondansetron ODT 4 MG TAB PO PRN (12:24)
[2022-05-05] MEDS ORDERED: Bisacodyl 10 MG SUPP PR PRN (12:24)
[2022-05-05] MEDS ORDERED: Acetaminophen 325 MG TAB PO PRN (12:24)
[2022-05-05] MEDS ORDERED: Benzonatate 100 MG CAP PO PRN (12:24)
[2022-05-05] MEDS ORDERED: Guaifenesin DM 100-10/5 ML UDCUP PO PRN (12:24)
[2022-05-05] MEDS ORDERED: Polyethylene Glycol 3350 17 GM Packet PO SCH (17:15)
[2022-05-05] MEDS: HumaLOG 300 UNITS/3 ML VIAL SC PRN (17:51)
[2022-05-05] MEDS: Bisacodyl 5 MG TAB PO PRN (18:33)
[2022-05-05] MEDS: Senokot S 8.6-50 MG TAB PO SCH (20:38)
[2022-05-05] MEDS: Famotidine 20 MG TAB PO SCH (20:39)
[2022-05-05] MEDS: Carvedilol 3.125 MG TAB PO SCH (20:39)
[2022-05-05] MEDS: Rosuvastatin 10 MG TAB PO SCH (20:39)
[2022-05-05] MEDS ORDERED: Famotidine 20 MG TAB PO SCH (21:00)
[2022-05-05 22:14] LABS: SARS-CoV-2 NAA Rapid Test Not Detected (NotDetected)
[2022-05-06 05:54] LABS: #Eosinphils 0.1 thou/uL (0.0-0.7); #Lymphocytes 1.2 thou/uL (1.20-3.40); #Monocytes 0.6 thou/uL (0.11-0.59); %Basophils 0.5 % (0.0-1.0); %Eosinophils 1.2 % (0.0-10.0); %Lymphocytes 15.4 % (21.0-51.0); %Monocytes 7.3 % (0.0-10.0); %Neutrophils 75.6 % (42.0-75.0); Hemoglobin 8.5 g/dL (12.0-16.0); Mean Corpuscular HGB CONC 33.6 g/dL (32.0-36.0); Mean Corpuscular Hemoglobin 32.9 pg (27.0-31.0); Mean Corpuscular Volume 97.8 fl (78.0-98.0); Mean Platelet Volume 7.5 fL (7.4-10.4); Platelet Count 111 10x3/uL (130-400); RBC Distribution Width 14.3 % (11.5-14.5); Red Blood Cell (RBC) Count 2.59 mill/uL (4.20-5.40)
[2022-05-06 06:01] LABS: ALT (SGPT) Less than 3 U/L (8-55); AST (SGOT) 13 U/L (5-34); Albumin 2.8 g/dL (3.4-4.8); Alkaline Phosphatase 70 U/L (40-110); Anion Gap 13 mmol/L (10-20); BUN (Urea Nitrogen) 66 mg/dL (9.8-20.1); Bilirubin, Total 0.6 mg/dL (0.2-1.2); Calc. Creatinine Clearance 17 mL/min (70-130); Calcium 8.9 mg/dL (7.8-10.44); Carbon Dioxide 23 mmol/L (23-31); Chloride 103 mmol/L (98-107); Estimated GFR 17; Globulin 2.5 g/dL (2.4-3.5); Glucose 210 mg/dL (83-110); Potassium 4.4 mmol/L (3.5-5.1); Protein, Total 5.3 g/dL (5.8-8.1); Sodium 135 mmol/L (136-145)
[2022-05-06] MEDS: Levothyroxine Sodium 50 MCG TAB PO SCH (06:05)
[2022-05-06] MEDS: HumaLOG 300 UNITS/3 ML VIAL SC PRN ×3 (06:29→16:56)
[2022-05-06] MEDS: Calcium Carbonate 600 MG + Vit D TAB PO SCH (08:03)
[2022-05-06] MEDS: Fluticasone Propionate Nasal Spray 16 gm Bottle NASAL SCH (08:03)
[2022-05-06] MEDS: Carvedilol 3.125 MG TAB PO SCH ×3 (08:04→21:20)
[2022-05-06] MEDS: Allopurinol 100 MG TAB PO SCH (08:04)
[2022-05-06] MEDS: Aspirin 81 mg Enteric Coated Tablet PO SCH (08:04)
[2022-05-06] MEDS: Famotidine 20 MG TAB PO SCH (08:04)
[2022-05-06] MEDS: Senokot S 8.6-50 MG TAB PO SCH ×2 (08:04→21:20)
[2022-05-06] MEDS: Bisacodyl 5 MG TAB PO PRN (08:04)
[2022-05-06] MEDS: HYDROcodone/Acetaminophen 7.5/325 mg Tablet PO PRN (12:04)
[2022-05-06] MEDS: QUEtiapine 25 MG TAB PO SCH (21:20)
[2022-05-06] MEDS: Rosuvastatin 10 MG TAB PO SCH (21:22)
[2022-05-07] MEDS: Levothyroxine Sodium 50 MCG TAB PO SCH (06:22)
[2022-05-07] MEDS: Famotidine 20 MG TAB PO SCH (08:22)
[2022-05-07] MEDS: Calcium Carbonate 600 MG + Vit D TAB PO SCH (08:23)
[2022-05-07] MEDS: Allopurinol 100 MG TAB PO SCH (08:23)
[2022-05-07] MEDS: Carvedilol 3.125 MG TAB PO SCH ×3 (08:25→20:56)
[2022-05-07] MEDS: Fluticasone Propionate Nasal Spray 16 gm Bottle NASAL SCH (08:25)
[2022-05-07] MEDS: Senokot S 8.6-50 MG TAB PO SCH ×2 (08:25→20:57)
[2022-05-07] MEDS: Aspirin 81 mg Enteric Coated Tablet PO SCH (08:25)
[2022-05-07] MEDS: Bisacodyl 5 MG TAB PO PRN (09:29)
[2022-05-07] MEDS: HumaLOG 300 UNITS/3 ML VIAL SC PRN ×2 (12:29→16:16)
[2022-05-07] MEDS ORDERED: Lantus 1000 UNITS/10 ML VIAL SC SCH (14:00)
[2022-05-07] MEDS ORDERED: PATIENT'S HOME MEDICATION SC SCH (14:30)
[2022-05-07] MEDS: QUEtiapine 25 MG TAB PO SCH (20:56)
[2022-05-07] MEDS: Rosuvastatin 10 MG TAB PO SCH (20:57)
[2022-05-08] MEDS: Levothyroxine Sodium 50 MCG TAB PO SCH (06:05)
[2022-05-08 07:08] LABS: #Basophils 0.1 thou/uL (0.0-0.2); #Eosinphils 0.1 thou/uL (0.0-0.7); #Lymphocytes 1.5 thou/uL (1.20-3.40); #Monocytes 0.8 thou/uL (0.11-0.59); #Neutrophils 10.3 thou/uL (1.40-6.50); %Basophils 0.9 % (0.0-1.0); %Eosinophils 0.8 % (0.0-10.0); %Lymphocytes 11.7 % (21.0-51.0); %Monocytes 6.1 % (0.0-10.0); %Neutrophils 80.6 % (42.0-75.0); Hemoglobin 8.4 g/dL (12.0-16.0); Mean Corpuscular HGB CONC 32.8 g/dL (32.0-36.0); Mean Corpuscular Hemoglobin 32.8 pg (27.0-31.0); Mean Corpuscular Volume 99.9 fl (78.0-98.0); Mean Platelet Volume 7.8 fL (7.4-10.4); Platelet Count 144 10x3/uL (130-400); RBC Distribution Width 14.8 % (11.5-14.5); Red Blood Cell (RBC) Count 2.54 mill/uL (4.20-5.40); White Blood Cell (WBC) Count 12.8 10x3/uL (4.8-10.8)
[2022-05-08 07:21] LABS: Anion Gap 14 mmol/L (10-20); BUN (Urea Nitrogen) 60 mg/dL (9.8-20.1); Calc. Creatinine Clearance 18 mL/min (70-130); Calcium 8.7 mg/dL (7.8-10.44); Carbon Dioxide 21 mmol/L (23-31); Chloride 104 mmol/L (98-107); Estimated GFR 19; Glucose 56 mg/dL (83-110); Potassium 3.8 mmol/L (3.5-5.1); Sodium 135 mmol/L (136-145)
[2022-05-08] MEDS: Calcium Carbonate 600 MG + Vit D TAB PO SCH (07:54)
[2022-05-08] MEDS: Senokot S 8.6-50 MG TAB PO SCH ×2 (07:54→21:00)
[2022-05-08] MEDS: Allopurinol 100 MG TAB PO SCH (07:54)
[2022-05-08] MEDS: Famotidine 20 MG TAB PO SCH (07:54)
[2022-05-08] MEDS: Calcitriol 0.25 MCG CAP PO SCH (07:54)
[2022-05-08] MEDS: Aspirin 81 mg Enteric Coated Tablet PO SCH (07:54)
[2022-05-08] MEDS: Fluticasone Propionate Nasal Spray 16 gm Bottle NASAL SCH (07:54)
[2022-05-08] MEDS: Carvedilol 3.125 MG TAB PO SCH ×3 (07:54→20:59)
[2022-05-08] MEDS: PATIENT'S HOME MEDICATION SC SCH (07:55)
[2022-05-08] MEDS ORDERED: Lantus 1000 UNITS/10 ML VIAL SC SCH (09:00)
[2022-05-08] MEDS: HYDROcodone/Acetaminophen 7.5/325 mg Tablet PO PRN (11:31)
[2022-05-08] MEDS: HumaLOG 300 UNITS/3 ML VIAL SC PRN ×2 (11:32→16:39)
[2022-05-08] MEDS: Rosuvastatin 10 MG TAB PO SCH (20:59)
[2022-05-08] MEDS: QUEtiapine 25 MG TAB PO SCH (20:59)
[2022-05-09] MEDS: Levothyroxine Sodium 50 MCG TAB PO SCH (05:17)
[2022-05-09] MEDS: Allopurinol 100 MG TAB PO SCH (08:17)
[2022-05-09] MEDS: Calcium Carbonate 600 MG + Vit D TAB PO SCH (08:17)
[2022-05-09] MEDS: Aspirin 81 mg Enteric Coated Tablet PO SCH (08:17)
[2022-05-09] MEDS: Calcitriol 0.25 MCG CAP PO SCH (08:18)
[2022-05-09] MEDS: Famotidine 20 MG TAB PO SCH (08:18)
[2022-05-09] MEDS: Carvedilol 3.125 MG TAB PO SCH ×3 (08:18→20:21)
[2022-05-09] MEDS: Senokot S 8.6-50 MG TAB PO SCH ×2 (08:18→20:21)
[2022-05-09] MEDS: Fluticasone Propionate Nasal Spray 16 gm Bottle NASAL SCH (08:22)
[2022-05-09] MEDS: PATIENT'S HOME MEDICATION SC SCH (08:46)
[2022-05-09] MEDS: HumaLOG 300 UNITS/3 ML VIAL SC PRN ×2 (11:34→17:03)
[2022-05-09] MEDS: HYDROcodone/Acetaminophen 7.5/325 mg Tablet PO PRN (14:18)
[2022-05-09] MEDS: QUEtiapine 25 MG TAB PO SCH (20:21)
[2022-05-09] MEDS: Rosuvastatin 10 MG TAB PO SCH (20:21)
[2022-05-10] MEDS: Levothyroxine Sodium 50 MCG TAB PO SCH (05:32)
[2022-05-10] MEDS: Fluticasone Propionate Nasal Spray 16 gm Bottle NASAL SCH (08:27)
[2022-05-10] MEDS: Senokot S 8.6-50 MG TAB PO SCH ×2 (08:29→21:11)
[2022-05-10] MEDS: Calcitriol 0.25 MCG CAP PO SCH (08:29)
[2022-05-10] MEDS: Calcium Carbonate 600 MG + Vit D TAB PO SCH (08:29)
[2022-05-10] MEDS: Famotidine 20 MG TAB PO SCH (08:30)
[2022-05-10] MEDS: Allopurinol 100 MG TAB PO SCH (08:30)
[2022-05-10] MEDS: Carvedilol 3.125 MG TAB PO SCH ×3 (08:30→21:11)
[2022-05-10] MEDS: Aspirin 81 mg Enteric Coated Tablet PO SCH (08:30)
[2022-05-10] MEDS: PATIENT'S HOME MEDICATION SC SCH (09:37)
[2022-05-10] MEDS: Acetaminophen 325 MG TAB PO PRN ×2 (09:45→15:05)
[2022-05-10] MEDS: HumaLOG 300 UNITS/3 ML VIAL SC PRN ×2 (11:34→17:08)
[2022-05-10] MEDS: Rosuvastatin 10 MG TAB PO SCH (21:09)
[2022-05-10] MEDS: QUEtiapine 25 MG TAB PO SCH (21:11)
[2022-05-11] MEDS: Levothyroxine Sodium 50 MCG TAB PO SCH (05:25)
[2022-05-11] MEDS: HumaLOG 300 UNITS/3 ML VIAL SC PRN ×3 (05:35→21:03)
[2022-05-11] MEDS: Allopurinol 100 MG TAB PO SCH (08:22)
[2022-05-11] MEDS: Calcitriol 0.25 MCG CAP PO SCH (08:22)
[2022-05-11] MEDS: Famotidine 20 MG TAB PO SCH (08:22)
[2022-05-11] MEDS: HYDROcodone/Acetaminophen 7.5/325 mg Tablet PO PRN (08:23)
[2022-05-11] MEDS: Calcium Carbonate 600 MG + Vit D TAB PO SCH (08:23)
[2022-05-11] MEDS: Senokot S 8.6-50 MG TAB PO SCH ×2 (08:23→20:52)
[2022-05-11] MEDS: Carvedilol 3.125 MG TAB PO SCH ×3 (08:23→20:59)
[2022-05-11] MEDS: Aspirin 81 mg Enteric Coated Tablet PO SCH (08:23)
[2022-05-11] MEDS: Fluticasone Propionate Nasal Spray 16 gm Bottle NASAL SCH (08:36)
[2022-05-11] MEDS: PATIENT'S HOME MEDICATION SC SCH (08:59)
[2022-05-11] MEDS: QUEtiapine 25 MG TAB PO SCH (20:52)
[2022-05-11] MEDS: Rosuvastatin 10 MG TAB PO SCH (20:59)
[2022-05-12 00:46] LABS: Bacteria/HPF 3+ HPF (None Seen); Bilirubin Negative (Negative); Blood, Urine Small (Negative); CAUTI Indications for Culture Dysuria,urgency,freq; Clarity Slightly Cloudy (Clear); Glucose, Urine (Dipstick) 250 mg/dL (Negative); Ketone, Urine Negative (Negative); Leukocyte Moderate (Negative); Nitrite Negative (Negative); Protein, Urine (Dipstick) 30 mg/dL (Neg-Trace); RBC/HPF None Seen HPF (0-3); Squamous Epithelial 0-3 HPF (0-3); Urobilinogen 0.2 mg/dL (Less than 2); WBC/HPF 21-50 HPF (0-3)
[2022-05-12 00:47] LABS: Urine Culture Reflex Yes Yes
[2022-05-12] MEDS: Levothyroxine Sodium 50 MCG TAB PO SCH (05:24)
[2022-05-12 06:33] LABS: Anion Gap 15 mmol/L (10-20); BUN (Urea Nitrogen) 77 mg/dL (9.8-20.1); Calc. Creatinine Clearance 18 mL/min (70-130); Carbon Dioxide 19 mmol/L (23-31); Chloride 107 mmol/L (98-107); Estimated GFR 19; Glucose 144 mg/dL (83-110); Sodium 137 mmol/L (136-145)
[2022-05-12 06:41] LABS: #Basophils 0.1 thou/uL (0.0-0.2); #Eosinphils 0.1 thou/uL (0.0-0.7); #Lymphocytes 1.4 thou/uL (1.20-3.40); #Monocytes 0.7 thou/uL (0.11-0.59); #Neutrophils 11.2 thou/uL (1.40-6.50); %Basophils 0.6 % (0.0-1.0); %Lymphocytes 10.3 % (21.0-51.0); %Monocytes 4.9 % (0.0-10.0); %Neutrophils 83.3 % (42.0-75.0); Hemoglobin 8.3 g/dL (12.0-16.0); Mean Corpuscular HGB CONC 32.5 g/dL (32.0-36.0); Mean Corpuscular Hemoglobin 32.5 pg (27.0-31.0); Mean Platelet Volume 7.1 fL (7.4-10.4); Platelet Count 203 10x3/uL (130-400); RBC Distribution Width 16.1 % (11.5-14.5); Red Blood Cell (RBC) Count 2.54 mill/uL (4.20-5.40); White Blood Cell (WBC) Count 13.4 10x3/uL (4.8-10.8)
[2022-05-12] MEDS: Fluticasone Propionate Nasal Spray 16 gm Bottle NASAL SCH (09:00)
[2022-05-12] MEDS: Aspirin 81 mg Enteric Coated Tablet PO SCH (09:13)
[2022-05-12] MEDS: Nitrofurantoin Monohyd/M-Cryst 100 MG CAP PO SCH ×2 (09:13→20:06)
[2022-05-12] MEDS: Calcium Carbonate 600 MG + Vit D TAB PO SCH (09:13)
[2022-05-12] MEDS: Famotidine 20 MG TAB PO SCH (09:13)
[2022-05-12] MEDS: Allopurinol 100 MG TAB PO SCH (09:14)
[2022-05-12] MEDS: Senokot S 8.6-50 MG TAB PO SCH ×2 (09:14→20:05)
[2022-05-12] MEDS: Carvedilol 3.125 MG TAB PO SCH ×3 (09:16→20:06)
[2022-05-12] MEDS: PATIENT'S HOME MEDICATION SC SCH (09:18)
[2022-05-12] MEDS: HYDROcodone/Acetaminophen 7.5/325 mg Tablet PO PRN (11:34)
[2022-05-12] MEDS: HumaLOG 300 UNITS/3 ML VIAL SC PRN (11:36)
[2022-05-12] MEDS: QUEtiapine 25 MG TAB PO SCH (20:05)
[2022-05-12] MEDS: Rosuvastatin 10 MG TAB PO SCH (20:05)
[2022-05-12] MEDS: Acetaminophen 325 MG TAB PO PRN (20:05)
[2022-05-13] MEDS: Levothyroxine Sodium 50 MCG TAB PO SCH (05:10)
[2022-05-13] MEDS: Calcium Carbonate 600 MG + Vit D TAB PO SCH (08:14)
[2022-05-13] MEDS: Allopurinol 100 MG TAB PO SCH (08:14)
[2022-05-13] MEDS: Aspirin 81 mg Enteric Coated Tablet PO SCH (08:15)
[2022-05-13] MEDS: Famotidine 20 MG TAB PO SCH (08:15)
[2022-05-13] MEDS: Nitrofurantoin Monohyd/M-Cryst 100 MG CAP PO SCH ×2 (08:16→21:08)
[2022-05-13] MEDS: Carvedilol 3.125 MG TAB PO SCH ×3 (08:16→21:08)
[2022-05-13] MEDS: Senokot S 8.6-50 MG TAB PO SCH ×3 (08:16→21:08)
[2022-05-13] MEDS: Fluticasone Propionate Nasal Spray 16 gm Bottle NASAL SCH (08:18)
[2022-05-13] MEDS: PATIENT'S HOME MEDICATION SC SCH (08:21)
[2022-05-13] MEDS: HYDROcodone/Acetaminophen 7.5/325 mg Tablet PO PRN ×2 (08:31→13:53)
[2022-05-13] MEDS: HumaLOG 300 UNITS/3 ML VIAL SC PRN ×2 (11:34→17:03)
[2022-05-13] MEDS: Rosuvastatin 10 MG TAB PO SCH (21:07)
[2022-05-13] MEDS: QUEtiapine 25 MG TAB PO SCH (21:08)
[2022-05-14] MEDS: Levothyroxine Sodium 50 MCG TAB PO SCH (06:35)
[2022-05-14] MEDS: HYDROcodone/Acetaminophen 7.5/325 mg Tablet PO PRN (09:02)
[2022-05-14] MEDS: Nitrofurantoin Monohyd/M-Cryst 100 MG CAP PO SCH ×2 (09:04→21:38)
[2022-05-14] MEDS: Carvedilol 3.125 MG TAB PO SCH ×3 (09:04→21:36)
[2022-05-14] MEDS: Calcium Carbonate 600 MG + Vit D TAB PO SCH (09:05)
[2022-05-14] MEDS: Allopurinol 100 MG TAB PO SCH (09:05)
[2022-05-14] MEDS: Famotidine 20 MG TAB PO SCH (09:05)
[2022-05-14] MEDS: Aspirin 81 mg Enteric Coated Tablet PO SCH (09:05)
[2022-05-14] MEDS: Senokot S 8.6-50 MG TAB PO SCH ×3 (09:06→21:39)
[2022-05-14] MEDS: PATIENT'S HOME MEDICATION SC SCH (09:07)
[2022-05-14] MEDS: Fluticasone Propionate Nasal Spray 16 gm Bottle NASAL SCH (09:07)
[2022-05-14] MEDS: HumaLOG 300 UNITS/3 ML VIAL SC PRN ×2 (12:02→16:10)
[2022-05-14] MEDS: Acetaminophen 325 MG TAB PO PRN ×2 (16:16→21:36)
[2022-05-14] MEDS: QUEtiapine 25 MG TAB PO SCH (21:37)
[2022-05-14] MEDS: Rosuvastatin 10 MG TAB PO SCH (21:38)
[2022-05-15] MEDS: Levothyroxine Sodium 50 MCG TAB PO SCH (05:39)
[2022-05-15 06:14] LABS: Anion Gap 14 mmol/L (10-20); BUN (Urea Nitrogen) 59 mg/dL (9.8-20.1); Calc. Creatinine Clearance 19 mL/min (70-130); Calcium 8.7 mg/dL (7.8-10.44); Carbon Dioxide 21 mmol/L (23-31); Chloride 109 mmol/L (98-107); Estimated GFR 19; Glucose 142 mg/dL (83-110); Potassium 4.6 mmol/L (3.5-5.1); Sodium 139 mmol/L (136-145)
[2022-05-15 06:39] LABS: #Basophils 0.1 thou/uL (0.0-0.2); #Eosinphils 0.1 thou/uL (0.0-0.7); #Lymphocytes 1.5 thou/uL (1.20-3.40); #Monocytes 0.6 thou/uL (0.11-0.59); %Basophils 0.7 % (0.0-1.0); %Lymphocytes 14.5 % (21.0-51.0); %Monocytes 5.6 % (0.0-10.0); %Neutrophils 78.2 % (42.0-75.0); Hemoglobin 8.4 g/dL (12.0-16.0); Mean Corpuscular HGB CONC 31.5 g/dL (32.0-36.0); Mean Corpuscular Hemoglobin 32.6 pg (27.0-31.0); Mean Platelet Volume 6.6 fL (7.4-10.4); Platelet Count 206 10x3/uL (130-400); RBC Distribution Width 16.9 % (11.5-14.5); Red Blood Cell (RBC) Count 2.59 mill/uL (4.20-5.40); White Blood Cell (WBC) Count 10.2 10x3/uL (4.8-10.8)
[2022-05-15] MEDS: Senokot S 8.6-50 MG TAB PO SCH ×2 (08:13→20:11)
[2022-05-15] MEDS: Aspirin 81 mg Enteric Coated Tablet PO SCH (08:13)
[2022-05-15] MEDS: Famotidine 20 MG TAB PO SCH (08:13)
[2022-05-15] MEDS: Calcitriol 0.25 MCG CAP PO SCH (08:14)
[2022-05-15] MEDS: Carvedilol 3.125 MG TAB PO SCH ×3 (08:14→20:11)
[2022-05-15] MEDS: Allopurinol 100 MG TAB PO SCH (08:14)
[2022-05-15] MEDS: Fluticasone Propionate Nasal Spray 16 gm Bottle NASAL SCH (08:15)
[2022-05-15] MEDS: Calcium Carbonate 600 MG + Vit D TAB PO SCH (08:18)
[2022-05-15] MEDS: BASAGLAR SC SCH (08:18)
[2022-05-15] MEDS: HumaLOG 300 UNITS/3 ML VIAL SC PRN ×2 (12:02→16:07)
[2022-05-15] MEDS ORDERED: Triple Antibiotic Oint 1 GM Packet TOP PRN (13:32)
[2022-05-15] MEDS: QUEtiapine 25 MG TAB PO SCH (20:10)
[2022-05-15] MEDS: Rosuvastatin 10 MG TAB PO SCH (20:10)
[2022-05-15] MEDS: HYDROcodone/Acetaminophen 7.5/325 mg Tablet PO PRN (20:11)
[2022-05-16] MEDS: Levothyroxine Sodium 50 MCG TAB PO SCH (06:17)
[2022-05-16] MEDS: Triple Antibiotic Oint 1 GM Packet TOP SCH (09:02)
[2022-05-16] MEDS: Calcium Carbonate 600 MG + Vit D TAB PO SCH (09:02)
[2022-05-16] MEDS: Allopurinol 100 MG TAB PO SCH (09:02)
[2022-05-16] MEDS: Senokot S 8.6-50 MG TAB PO SCH ×2 (09:02→21:28)
[2022-05-16] MEDS: Acetaminophen 325 MG TAB PO PRN (09:03)
[2022-05-16] MEDS: Aspirin 81 mg Enteric Coated Tablet PO SCH (09:03)
[2022-05-16] MEDS: Famotidine 20 MG TAB PO SCH (09:03)
[2022-05-16] MEDS: Carvedilol 3.125 MG TAB PO SCH ×3 (09:03→21:28)
[2022-05-16] MEDS: Fluticasone Propionate Nasal Spray 16 gm Bottle NASAL SCH (09:07)
[2022-05-16] MEDS: BASAGLAR SC SCH (09:10)
[2022-05-16] MEDS: HumaLOG 300 UNITS/3 ML VIAL SC PRN ×2 (11:21→16:45)
[2022-05-16] MEDS: Bisacodyl 5 MG TAB PO PRN (11:21)
[2022-05-16] MEDS: Rosuvastatin 10 MG TAB PO SCH (21:28)
[2022-05-16] MEDS: QUEtiapine 25 MG TAB PO SCH (21:28)
[2022-05-17] MEDS: Levothyroxine Sodium 50 MCG TAB PO SCH (05:56)
[2022-05-17] MEDS: Calcium Carbonate 600 MG + Vit D TAB PO SCH (09:06)
[2022-05-17] MEDS: Fluticasone Propionate Nasal Spray 16 gm Bottle NASAL SCH (09:06)
[2022-05-17] MEDS: Aspirin 81 mg Enteric Coated Tablet PO SCH (09:06)
[2022-05-17] MEDS: Senokot S 8.6-50 MG TAB PO SCH ×2 (09:06→20:16)
[2022-05-17] MEDS: HYDROcodone/Acetaminophen 7.5/325 mg Tablet PO PRN (09:09)
[2022-05-17] MEDS: Famotidine 20 MG TAB PO SCH (09:10)
[2022-05-17] MEDS: Allopurinol 100 MG TAB PO SCH (09:10)
[2022-05-17] MEDS: Calcitriol 0.25 MCG CAP PO SCH (09:10)
[2022-05-17] MEDS: Carvedilol 3.125 MG TAB PO SCH ×3 (09:10→20:16)
[2022-05-17] MEDS: Triple Antibiotic Oint 1 GM Packet TOP SCH (09:11)
[2022-05-17] MEDS: BASAGLAR SC SCH (10:21)
[2022-05-17] MEDS ORDERED: BASAGLAR SC SCH (11:00)
[2022-05-17] MEDS: HumaLOG 300 UNITS/3 ML VIAL SC PRN ×2 (11:52→17:44)
[2022-05-17] MEDS: Rosuvastatin 10 MG TAB PO SCH (20:16)
[2022-05-17] MEDS: QUEtiapine 25 MG TAB PO SCH (20:16)
[2022-05-18] MEDS: Levothyroxine Sodium 50 MCG TAB PO SCH (05:42)
[2022-05-18] MEDS: Triple Antibiotic Oint 1 GM Packet TOP SCH (08:12)
[2022-05-18] MEDS: Senokot S 8.6-50 MG TAB PO SCH ×2 (08:12→20:14)
[2022-05-18] MEDS: Calcium Carbonate 600 MG + Vit D TAB PO SCH (08:12)
[2022-05-18] MEDS: Allopurinol 100 MG TAB PO SCH (08:13)
[2022-05-18] MEDS: Carvedilol 3.125 MG TAB PO SCH ×3 (08:13→20:15)
[2022-05-18] MEDS: Calcitriol 0.25 MCG CAP PO SCH (08:13)
[2022-05-18] MEDS: Famotidine 20 MG TAB PO SCH (08:14)
[2022-05-18] MEDS: Fluticasone Propionate Nasal Spray 16 gm Bottle NASAL SCH (08:14)
[2022-05-18] MEDS: HYDROcodone/Acetaminophen 7.5/325 mg Tablet PO PRN (08:23)
[2022-05-18] MEDS: Aspirin 81 mg Enteric Coated Tablet PO SCH (08:25)
[2022-05-18] MEDS ORDERED: BASAGLAR SC SCH (09:00)
[2022-05-18 09:53] LABS: #Basophils 0.1 thou/uL (0.0-0.2); #Eosinphils 0.1 thou/uL (0.0-0.7); #Lymphocytes 0.8 thou/uL (1.20-3.40); #Monocytes 0.6 thou/uL (0.11-0.59); %Basophils 0.7 % (0.0-1.0); %Eosinophils 1.1 % (0.0-10.0); %Lymphocytes 7.3 % (21.0-51.0); %Monocytes 5.2 % (0.0-10.0); %Neutrophils 85.8 % (42.0-75.0); Hemoglobin 8.8 g/dL (12.0-16.0); Mean Corpuscular HGB CONC 30.4 g/dL (32.0-36.0); Mean Corpuscular Hemoglobin 31.7 pg (27.0-31.0); Mean Platelet Volume 6.5 fL (7.4-10.4); Platelet Count 198 10x3/uL (130-400); Red Blood Cell (RBC) Count 2.77 mill/uL (4.20-5.40); White Blood Cell (WBC) Count 10.5 10x3/uL (4.8-10.8)
[2022-05-18] MEDS: BASAGLAR SC SCH (10:05)
[2022-05-18] MEDS: HumaLOG 300 UNITS/3 ML VIAL SC PRN ×2 (11:51→17:02)
[2022-05-18] MEDS: QUEtiapine 25 MG TAB PO SCH (20:15)
[2022-05-18] MEDS: Rosuvastatin 10 MG TAB PO SCH (20:15)
[2022-05-19] MEDS: Levothyroxine Sodium 50 MCG TAB PO SCH (05:07)
[2022-05-19 05:52] LABS: #Basophils 0.1 thou/uL (0.0-0.2); #Eosinphils 0.1 thou/uL (0.0-0.7); #Lymphocytes 1.2 thou/uL (1.20-3.40); #Monocytes 0.5 thou/uL (0.11-0.59); #Neutrophils 4.5 thou/uL (1.40-6.50); %Basophils 0.8 % (0.0-1.0); %Eosinophils 1.6 % (0.0-10.0); %Lymphocytes 18.4 % (21.0-51.0); %Monocytes 7.7 % (0.0-10.0); %Neutrophils 71.4 % (42.0-75.0); Hemoglobin 8.1 g/dL (12.0-16.0); Mean Corpuscular HGB CONC 31.5 g/dL (32.0-36.0); Mean Corpuscular Hemoglobin 32.2 pg (27.0-31.0); Mean Platelet Volume 6.6 fL (7.4-10.4); Platelet Count 162 10x3/uL (130-400); RBC Distribution Width 16.5 % (11.5-14.5); Red Blood Cell (RBC) Count 2.53 mill/uL (4.20-5.40); White Blood Cell (WBC) Count 6.4 10x3/uL (4.8-10.8)
[2022-05-19 06:06] LABS: Anion Gap 16 mmol/L (10-20); BUN (Urea Nitrogen) 50 mg/dL (9.8-20.1); Calc. Creatinine Clearance 21 mL/min (70-130); Calcium 8.7 mg/dL (7.8-10.44); Carbon Dioxide 19 mmol/L (23-31); Chloride 109 mmol/L (98-107); Estimated GFR 23; Glucose 88 mg/dL (83-110); Potassium 4.6 mmol/L (3.5-5.1); Sodium 139 mmol/L (136-145)
[2022-05-19] MEDS: Aspirin 81 mg Enteric Coated Tablet PO SCH (08:00)
[2022-05-19] MEDS: HYDROcodone/Acetaminophen 7.5/325 mg Tablet PO PRN ×2 (08:03→13:42)
[2022-05-19] MEDS: Carvedilol 3.125 MG TAB PO SCH ×3 (08:05→20:22)
[2022-05-19] MEDS: Calcitriol 0.25 MCG CAP PO SCH ×2 (08:06→08:15)
[2022-05-19] MEDS: Calcium Carbonate 600 MG + Vit D TAB PO SCH (08:06)
[2022-05-19] MEDS: Famotidine 20 MG TAB PO SCH (08:06)
[2022-05-19] MEDS: Allopurinol 100 MG TAB PO SCH (08:06)
[2022-05-19] MEDS: Senokot S 8.6-50 MG TAB PO SCH ×2 (08:07→20:22)
[2022-05-19] MEDS: Triple Antibiotic Oint 1 GM Packet TOP SCH (08:08)
[2022-05-19] MEDS: Fluticasone Propionate Nasal Spray 16 gm Bottle NASAL SCH (08:09)
[2022-05-19] MEDS: BASAGLAR SC SCH (08:09)
[2022-05-19] MEDS: HumaLOG 300 UNITS/3 ML VIAL SC PRN ×2 (11:53→20:58)
[2022-05-19] MEDS: Rosuvastatin 10 MG TAB PO SCH (20:22)
[2022-05-19] MEDS: QUEtiapine 25 MG TAB PO SCH (20:22)
[2022-05-20] MEDS: Levothyroxine Sodium 50 MCG TAB PO SCH (05:33)
[2022-05-20 05:56] LABS: #Basophils 0.1 thou/uL (0.0-0.2); #Eosinphils 0.1 thou/uL (0.0-0.7); #Lymphocytes 1.4 thou/uL (1.20-3.40); #Monocytes 0.5 thou/uL (0.11-0.59); #Neutrophils 3.8 thou/uL (1.40-6.50); %Eosinophils 1.5 % (0.0-10.0); %Lymphocytes 23.4 % (21.0-51.0); %Monocytes 9.1 % (0.0-10.0); %Neutrophils 64.9 % (42.0-75.0); Mean Corpuscular HGB CONC 32.4 g/dL (32.0-36.0); Mean Corpuscular Hemoglobin 32.5 pg (27.0-31.0); Mean Platelet Volume 7.1 fL (7.4-10.4); Platelet Count 143 10x3/uL (130-400); RBC Distribution Width 15.7 % (11.5-14.5); Red Blood Cell (RBC) Count 2.45 mill/uL (4.20-5.40); White Blood Cell (WBC) Count 5.8 10x3/uL (4.8-10.8)
[2022-05-20] MEDS: Calcium Carbonate 600 MG + Vit D TAB PO SCH (08:11)
[2022-05-20] MEDS: Allopurinol 100 MG TAB PO SCH (08:12)
[2022-05-20] MEDS: Senokot S 8.6-50 MG TAB PO SCH ×2 (08:12→20:15)
[2022-05-20] MEDS: Famotidine 20 MG TAB PO SCH (08:12)
[2022-05-20] MEDS: Carvedilol 3.125 MG TAB PO SCH ×3 (08:12→20:15)
[2022-05-20] MEDS: Aspirin 81 mg Enteric Coated Tablet PO SCH (08:12)
[2022-05-20] MEDS: Acetaminophen 325 MG TAB PO PRN (08:13)
[2022-05-20] MEDS: Fluticasone Propionate Nasal Spray 16 gm Bottle NASAL SCH (08:14)
[2022-05-20] MEDS: Triple Antibiotic Oint 1 GM Packet TOP SCH (08:16)
[2022-05-20] MEDS: BASAGLAR SC SCH (08:17)
[2022-05-20] MEDS: HumaLOG 300 UNITS/3 ML VIAL SC PRN (12:00)
[2022-05-20] MEDS: Rosuvastatin 10 MG TAB PO SCH (20:15)
[2022-05-20] MEDS: QUEtiapine 25 MG TAB PO SCH (20:15)
[2022-05-21] MEDS: Levothyroxine Sodium 50 MCG TAB PO SCH (05:49)
[2022-05-21] MEDS: Carvedilol 3.125 MG TAB PO SCH ×3 (08:16→20:53)
[2022-05-21] MEDS: Calcium Carbonate 600 MG + Vit D TAB PO SCH (08:16)
[2022-05-21] MEDS: Aspirin 81 mg Enteric Coated Tablet PO SCH (08:16)
[2022-05-21] MEDS: Triple Antibiotic Oint 1 GM Packet TOP SCH (08:16)
[2022-05-21] MEDS: Senokot S 8.6-50 MG TAB PO SCH ×2 (08:16→20:53)
[2022-05-21] MEDS: Fluticasone Propionate Nasal Spray 16 gm Bottle NASAL SCH (08:16)
[2022-05-21] MEDS: Famotidine 20 MG TAB PO SCH (08:17)
[2022-05-21] MEDS: Allopurinol 100 MG TAB PO SCH (08:17)
[2022-05-21] MEDS: BASAGLAR SC SCH (08:17)
[2022-05-21] MEDS: HumaLOG 300 UNITS/3 ML VIAL SC PRN (11:14)
[2022-05-21] MEDS: QUEtiapine 25 MG TAB PO SCH (20:52)
[2022-05-21] MEDS: Rosuvastatin 10 MG TAB PO SCH (20:53)
[2022-05-22] MEDS: Levothyroxine Sodium 50 MCG TAB PO SCH (05:11)
[2022-05-22 05:43] LABS: #Basophils 0.1 thou/uL (0.0-0.2); #Eosinphils 0.2 thou/uL (0.0-0.7); #Lymphocytes 1.1 thou/uL (1.20-3.40); #Monocytes 0.6 thou/uL (0.11-0.59); #Neutrophils 5.5 thou/uL (1.40-6.50); %Basophils 0.9 % (0.0-1.0); %Eosinophils 2.3 % (0.0-10.0); %Lymphocytes 14.4 % (21.0-51.0); %Neutrophils 74.4 % (42.0-75.0); Mean Corpuscular HGB CONC 30.9 g/dL (32.0-36.0); Mean Platelet Volume 6.6 fL (7.4-10.4); Platelet Count 152 10x3/uL (130-400); RBC Distribution Width 16.6 % (11.5-14.5); Red Blood Cell (RBC) Count 2.82 mill/uL (4.20-5.40); White Blood Cell (WBC) Count 7.3 10x3/uL (4.8-10.8)
[2022-05-22 05:49] LABS: Anion Gap 14 mmol/L (10-20); BUN (Urea Nitrogen) 47 mg/dL (9.8-20.1); Calc. Creatinine Clearance 21 mL/min (70-130); Calcium 8.7 mg/dL (7.8-10.44); Carbon Dioxide 21 mmol/L (23-31); Chloride 109 mmol/L (98-107); Estimated GFR 23; Glucose 111 mg/dL (83-110); Potassium 4.2 mmol/L (3.5-5.1); Sodium 140 mmol/L (136-145)
[2022-05-22] MEDS: HYDROcodone/Acetaminophen 7.5/325 mg Tablet PO PRN (08:15)
[2022-05-22] MEDS: Triple Antibiotic Oint 1 GM Packet TOP SCH (08:15)
[2022-05-22] MEDS: Calcitriol 0.25 MCG CAP PO SCH (08:16)
[2022-05-22] MEDS: Calcium Carbonate 600 MG + Vit D TAB PO SCH (08:16)
[2022-05-22] MEDS: Famotidine 20 MG TAB PO SCH (08:16)
[2022-05-22] MEDS: Aspirin 81 mg Enteric Coated Tablet PO SCH (08:16)
[2022-05-22] MEDS: Allopurinol 100 MG TAB PO SCH (08:16)
[2022-05-22] MEDS: Fluticasone Propionate Nasal Spray 16 gm Bottle NASAL SCH (08:16)
[2022-05-22] MEDS: Carvedilol 3.125 MG TAB PO SCH ×3 (08:16→20:15)
[2022-05-22] MEDS: Senokot S 8.6-50 MG TAB PO SCH ×3 (08:17→20:15)
[2022-05-22] MEDS: BASAGLAR SC SCH (08:17)
[2022-05-22] MEDS: Acetaminophen 325 MG TAB PO PRN (11:48)
[2022-05-22] MEDS: HumaLOG 300 UNITS/3 ML VIAL SC PRN ×2 (11:48→16:49)
[2022-05-22] MEDS: Rosuvastatin 10 MG TAB PO SCH (20:15)
[2022-05-22] MEDS: QUEtiapine 25 MG TAB PO SCH (20:15)
[2022-05-23] MEDS: Levothyroxine Sodium 50 MCG TAB PO SCH (05:13)
[2022-05-23] MEDS: Triple Antibiotic Oint 1 GM Packet TOP SCH (08:23)
[2022-05-23] MEDS: Famotidine 20 MG TAB PO SCH (08:23)
[2022-05-23] MEDS: Carvedilol 3.125 MG TAB PO SCH ×3 (08:23→20:23)
[2022-05-23] MEDS: Aspirin 81 mg Enteric Coated Tablet PO SCH (08:23)
[2022-05-23] MEDS: Calcium Carbonate 600 MG + Vit D TAB PO SCH (08:23)
[2022-05-23] MEDS: Senokot S 8.6-50 MG TAB PO SCH ×2 (08:23→20:23)
[2022-05-23] MEDS: Fluticasone Propionate Nasal Spray 16 gm Bottle NASAL SCH (08:24)
[2022-05-23] MEDS: Allopurinol 100 MG TAB PO SCH (08:24)
[2022-05-23] MEDS: BASAGLAR SC SCH (08:33)
[2022-05-23] MEDS: HYDROcodone/Acetaminophen 7.5/325 mg Tablet PO PRN (09:04)
[2022-05-23] MEDS: HumaLOG 300 UNITS/3 ML VIAL SC PRN ×2 (16:53→22:14)
[2022-05-23] MEDS: QUEtiapine 25 MG TAB PO SCH (20:22)
[2022-05-23] MEDS: Rosuvastatin 10 MG TAB PO SCH (20:23)
[2022-05-24] MEDS: Levothyroxine Sodium 50 MCG TAB PO SCH (06:13)
[2022-05-24] MEDS: Senokot S 8.6-50 MG TAB PO SCH ×2 (08:47→20:22)
[2022-05-24] MEDS: Carvedilol 3.125 MG TAB PO SCH ×3 (08:48→20:22)
[2022-05-24] MEDS: Aspirin 81 mg Enteric Coated Tablet PO SCH (08:48)
[2022-05-24] MEDS: Allopurinol 100 MG TAB PO SCH (08:48)
[2022-05-24] MEDS: Famotidine 20 MG TAB PO SCH (08:48)
[2022-05-24] MEDS: Calcium Carbonate 600 MG + Vit D TAB PO SCH (08:48)
[2022-05-24] MEDS: Calcitriol 0.25 MCG CAP PO SCH (08:48)
[2022-05-24] MEDS: Fluticasone Propionate Nasal Spray 16 gm Bottle NASAL SCH (08:48)
[2022-05-24] MEDS: BASAGLAR SC SCH (08:49)
[2022-05-24] MEDS: Triple Antibiotic Oint 1 GM Packet TOP SCH (08:50)
[2022-05-24] MEDS: HYDROcodone/Acetaminophen 7.5/325 mg Tablet PO PRN (10:59)
[2022-05-24] MEDS: HumaLOG 300 UNITS/3 ML VIAL SC PRN (11:33)
[2022-05-24] MEDS: Rosuvastatin 10 MG TAB PO SCH (20:21)
[2022-05-24] MEDS: QUEtiapine 25 MG TAB PO SCH (20:22)
[2022-05-25] MEDS: Levothyroxine Sodium 50 MCG TAB PO SCH (05:21)
[2022-05-25] MEDS: Aspirin 81 mg Enteric Coated Tablet PO SCH (08:40)
[2022-05-25] MEDS: Allopurinol 100 MG TAB PO SCH (08:40)
[2022-05-25] MEDS: Calcium Carbonate 600 MG + Vit D TAB PO SCH (08:40)
[2022-05-25] MEDS: Senokot S 8.6-50 MG TAB PO SCH ×2 (08:40→20:36)
[2022-05-25] MEDS: Triple Antibiotic Oint 1 GM Packet TOP SCH (08:40)
[2022-05-25] MEDS: Carvedilol 3.125 MG TAB PO SCH ×3 (08:40→20:35)
[2022-05-25] MEDS: Famotidine 20 MG TAB PO SCH (08:40)
[2022-05-25] MEDS: BASAGLAR SC SCH (08:41)
[2022-05-25] MEDS: Fluticasone Propionate Nasal Spray 16 gm Bottle NASAL SCH (08:41)
[2022-05-25] MEDS: HumaLOG 300 UNITS/3 ML VIAL SC PRN (11:38)
[2022-05-25 16:54] LABS: SARS-CoV-2 NAA Rapid Test Not Detected (NotDetected)
[2022-05-25] MEDS: QUEtiapine 25 MG TAB PO SCH (20:35)
[2022-05-25] MEDS: Rosuvastatin 10 MG TAB PO SCH (20:36)
[2022-05-26 05:34] VITALS: BMI 31.6
[2022-05-26] MEDS: Levothyroxine Sodium 50 MCG TAB PO SCH (05:44)
[2022-05-26 06:23] LABS: #Basophils 0.1 thou/uL (0.0-0.2); #Eosinphils 0.1 thou/uL (0.0-0.7); #Lymphocytes 1.4 thou/uL (1.20-3.40); #Monocytes 0.5 thou/uL (0.11-0.59); #Neutrophils 3.5 thou/uL (1.40-6.50); %Basophils 1.2 % (0.0-1.0); %Eosinophils 2.2 % (0.0-10.0); %Lymphocytes 24.7 % (21.0-51.0); %Monocytes 8.3 % (0.0-10.0); %Neutrophils 63.6 % (42.0-75.0); Hemoglobin 8.3 g/dL (12.0-16.0); Mean Corpuscular HGB CONC 30.6 g/dL (32.0-36.0); Mean Corpuscular Hemoglobin 31.5 pg (27.0-31.0); Mean Platelet Volume 6.9 fL (7.4-10.4); Platelet Count 157 10x3/uL (130-400); RBC Distribution Width 16.1 % (11.5-14.5); Red Blood Cell (RBC) Count 2.62 mill/uL (4.20-5.40); White Blood Cell (WBC) Count 5.5 10x3/uL (4.8-10.8)
[2022-05-26 06:30] LABS: Anion Gap 13 mmol/L (10-20); BUN (Urea Nitrogen) 51 mg/dL (9.8-20.1); Calc. Creatinine Clearance 20 mL/min (70-130); Calcium 8.8 mg/dL (7.8-10.44); Carbon Dioxide 22 mmol/L (23-31); Chloride 110 mmol/L (98-107); Estimated GFR 20; Glucose 65 mg/dL (83-110); Potassium 4.4 mmol/L (3.5-5.1); Sodium 141 mmol/L (136-145)
[2022-05-26 08:25] VITALS: BP 139/62; TEMP 97
[2022-05-26] MEDS: Allopurinol 100 MG TAB PO SCH (08:38)
[2022-05-26] MEDS: Famotidine 20 MG TAB PO SCH (08:38)
[2022-05-26] MEDS: Calcium Carbonate 600 MG + Vit D TAB PO SCH (08:38)
[2022-05-26] MEDS: Aspirin 81 mg Enteric Coated Tablet PO SCH (08:38)
[2022-05-26] MEDS: Senokot S 8.6-50 MG TAB PO SCH (08:38)
[2022-05-26] MEDS: Carvedilol 3.125 MG TAB PO SCH (08:38)
[2022-05-26] MEDS: BASAGLAR SC SCH (08:39)
[2022-05-26] MEDS: Calcitriol 0.25 MCG CAP PO SCH ×2 (08:40→08:46)
[2022-05-26] MEDS: Fluticasone Propionate Nasal Spray 16 gm Bottle NASAL SCH (08:41)
[2022-05-26] MEDS: Triple Antibiotic Oint 1 GM Packet TOP SCH (09:14)
[2022-05-26] MEDS: HumaLOG 300 UNITS/3 ML VIAL SC PRN (11:24)
[2022-05-26] MEDS ORDERED: Triple Antibiotic Oint 1 GM Packet TOP PRN (11:47)
[2022-05-27] MEDS ORDERED: Triple Antibiotic Oint 1 GM Packet TOP SCH (09:00)
== END 2022-05-26 11:45 | DRG 560 ==
LOC: NAV ACUTE 15:55
PROVIDERS: ADMIT Family Medicine; ATTEND Family Medicine
DX: S72.142D Displaced intertrochanteric fracture of left femur, subsequent encounter for closed fracture with routine healing (principal); N18.4 Chronic kidney disease, stage 4 (severe); N30.00 Acute cystitis without hematuria; E78.5 Hyperlipidemia, unspecified; E03.9 Hypothyroidism, unspecified; I48.91 Unspecified atrial fibrillation; I25.10 Atherosclerotic heart disease of native coronary artery without angina pectoris; E11.22 Type 2 diabetes mellitus with diabetic chronic kidney disease; R53.1 Weakness; Z66 Do not resuscitate; R53.81 Other malaise; F03.90 Unspecified dementia, unspecified severity, without behavioral disturbance, psychotic disturbance, mood disturbance, and anxiety; Z20.822 Contact with and (suspected) exposure to COVID-19; I25.5 Ischemic cardiomyopathy; M10.9 Gout, unspecified; I12.9 Hypertensive chronic kidney disease with stage 1 through stage 4 chronic kidney disease, or unspecified chronic kidney disease; Z98.890 Other specified postprocedural states; Z88.6 Allergy status to analgesic agent; Z88.8 Allergy status to other drugs, medicaments and biological substances; Z79.890 Hormone replacement therapy; Z79.899 Other long term (current) drug therapy; Z95.5 Presence of coronary angioplasty implant and graft; Z79.82 Long term (current) use of aspirin; Z79.84 Long term (current) use of oral hypoglycemic drugs; I25.2 Old myocardial infarction
CPT/HCPCS: 36415; 36416; 80048; 80053; 81001; 85025; 87077; 87086; 87186; 87811; J1650; J1815; U0002